=== PATIENT | female | born 1990 | race Caucasian/White ===

== ENCOUNTER 2022-07-07 12:32 | Emergency (ER) | payer BC, SELFPAY ==
[2022-07-07 12:47] VITALS: BP 126/84; PULSE 77; RESP 20; TEMP 37.3; O2SAT 100; BMI 23.1
--- NOTE | 2022-07-07 13:06 | ED_ITS ---
HPI - URI/Sore Throat General Time Seen by Provider: 13:07 Date Seen: 07/07/22 Chief Complaint: Cough Stated Complaint: positive for covid,cough,short of breath,congestio Time Seen by Provider: 07/07/22 12:41 Source: patient, RN notes reviewed and old records reviewed Mode of arrival: ambulatory Limitations: no limitations History of Present Illness HPI Narrative: Patient is a very pleasant 32-year-old female with a history of tobacco use, asthma, rheumatoid arthritis but not currently on any immunosuppressants who comes to the emergency room stating that she needs something for COVID. Patient noted the onset of coughing on TuesdayJuly 04. She has had occasional phlegm but mostly nonproductive. She tested positive for COVID yesterday. This is associated with a headache and body aches and decreased appetite. She has no sore throat, vomiting and has been able to take fluids without difficulty. She notes that she does not really have an appetite for solids. She denies abdominal pain but does note some diarrhea but states that she always has this and has not worsened. No dysuria hematuria or lower extremity edema. She has not had chest pain or been short of breath. Patient notes that her primary clinic is in [place] and she lives near [facility] in [place] and thus did not want to drive that far to her clinic and came to the emergency room. Related Data Allergies Allergy/AdvReac Type Severity Reaction Status Date / Time latex Allergy Verified 07/07/22 12:46 depoprovera Allergy Uncoded 07/07/22 12:47 Review of Systems Status of ROS: Reports: 6 or more systems reviewed and unremarkable except as noted in History and below Const: Reports: fatigue; Denies: fever or chills Eyes: Denies: change in vision ENMT: Denies: throat pain, neck pain, throat swelling, difficulty swallowing or hoarseness Cardio: Reports: lightheadedness; Denies: chest pain, swelling of feet/ankles or shortness of breath with exertion Resp: Reports: cough; Denies: shortness of breath or wheezing GI: Denies: difficulty swallowing : Denies: painful urination Musculo: Reports: other (Body aches); Denies: back pain or neck pain Integ/Breast: Denies: rash Neuro: Reports: headache; Denies: weakness in extremities Endo: Reports: fatigue Allergy/Immuno: Denies: throat swelling or wheezing PFSH PFS Social History Smoking Status: Current some day smoker What tobacco products do you use: cigarettes Years smoked: 10 Second hand tobacco smoke exposure: Yes How often do you have a drink containing alcohol: monthly or less How often do you have six or more drinks on one occasion: Never AUDIT-C Alcohol total score: 1 Non-prescribed substance use: denies use service: No Exam Narrative: Exam Narrative: Patient is alert and oriented. No acute distress. Only heard her cough once when I asked her to cough hard to see if it had any affect on O2 sats or pulse. Oral cavity with moist mucous membranes. Neck is supple. Heart with regular rate and rhythm. Lungs are clear in all lung gold. Abdomen soft nontender. Lower extremities without edema. Const: Vital Signs, click to edit/add: Vital Signs - 24 hr 07/07/22 12:47 Temperature 99.1 F Pulse Rate [Pulse Oximeter] 77 Respiratory Rate 20 Blood Pressure [Ri ght Upper Arm] 126/84 Pulse Oximetry 100 Oxygen Delivery Me thod Room Air Course Course Hospital Course: At this time patient is nontoxic in appearance with no evidence of tachycardia or hypoxia. She certainly would be a candidate for Paxlovid if she has a normal creatinine. I do not feel patient needs further workup Vital Signs Vital signs: Initial Vital Signs Temperature 99.1 F 07/07/22 12:47 Temperature Source Temporal Artery Scan 07/07/22 12:47 Pulse Rate 77 07/07/22 12:47 Pulse Rhythm 07/07/22 12:47 Respiratory Rate 20 07/07/22 12:47 Blood Pressure 126/84 07/07/22 12:47 Blood Pressure Mean 98 07/07/22 12:47 Blood Pressure Position Supine 07/07/22 12:47 Pulse Oximetry 100 07/07/22 12:47 Oxygen Delivery Method 07/07/22 12:47 Vital Signs Temperature 99.1 F 07/07/22 12:47 Pulse Rate 77 07/07/22 12:47 Respiratory Rate 20 07/07/22 12:47 Blood Pressure 126/84 07/07/22 12:47 Pulse Oximetry 100 07/07/22 12:47 Oxygen Delivery Method 07/07/22 12:47 Temperature 99.1 F 07/07/22 12:47 Pulse Rate 77 07/07/22 12:47 Respiratory Rate 20 07/07/22 12:47 Blood Pressure 126/84 07/07/22 12:47 Pulse Oximetry 100 07/07/22 12:47 Oxygen Delivery Method 07/07/22 12:47 MDM - URI/Sore Throat MDM Narrative Medical decision making narrative: 1. COVID-patient had requested medication for COVID and I did suggest the use of Paxlovid. She is stable at this time with reassuring oxygen levels as well as normal pulse. She has no signs of toxicity. Would however require creatinine for dispensing. It appears that lab missed x2 and patient told nursing that she wanted to go because she needed to smoke and get out of the ER. This is unfortunate as I do think we could have come up with alternative plan such as a fingerstick. Patient would have been eligible as this is day 4 of symptoms. 2. Disposition-patient departs AMA prior to my being able to talk to her. Medical Records Attestation: I reviewed the patient's medical records. Lab Data Attestation: I reviewed the patient's lab results. Discharge Plan Discharge Clinical Impression: COVID-19 Patient Disposition: Left Against Medical Advice Condition: Unchanged Additional Instructions: Patient left prior to labs being available. Stand Alone Forms: meets Instructions
--- NOTE | 2022-07-07 14:35 | ED.NURSE ---
lab techs x 2 have tried for blood drawn - unsuccessful. would like to go home
--- OUTSIDE RECORDS SUMMARY | 2022-07-08 11:01 | XMS_ITS | Encounter Summary ---
:1990 Author Organization [facility] Address [address] [place] [address] Care Team Providers Name Role Phone Unavailable Primary Care Provider Unavailable Encounter Details Date Type Department Care Team Description 01/13/2021 Orders Only [facility] Sa lisbeth Martinez M.D. [address] [place], [place] [phone] (Wo rk) Social History Tobacco Use Types Packs/Day Years Used Date Smoking Tobacco: Unknown Alcohol Use Standard Drinks/Week Comments No 0 (1 standard drink = 0.6 oz pure alcoho l) Sex Assigned at Date Recorded Not on file documented as of this encounter Plan of Treatment Not on filedocumented as of this encounter Visit Diagnoses Not on filedocumented in this encounter
--- OUTSIDE RECORDS SUMMARY | 2022-07-08 11:01 | XMS_ITS | Encounter Summary ---
:1990 Author Organization [facility] Address [address] [place] [address] Care Team Providers Name Role Phone Unavailable Primary Care Provider Unavailable Reason for Visit Outpatient (Routine) - Closed Specialty Diagnoses / Procedures Referred By Contact Refer red To Contact Diagnoses [facility] ([facility]) Fidel Stallings M.D., M.P.H. [facility] Procedures EEG routine - awake and sleep [facility] [place] [address] Referral ID Status Reason Start Date Expiration Date Visits Requ ested Visits Authorized [id number] Closed 03/18/2022 03/18/2023 1 1 Encounter Details Date Type Department Care Team Description 03/31/2022 Diagnostic Department of Fidel Stallings M.D., [facility] [place], [facility] ([facility]) [address] [address] [place] [address] [phone] Social History Tobacco Use Types Packs/Day Years Used Date Smoking Tobacco: Unknown Alcohol Use Standard Drinks/Week Comments No 0 (1 standard drink = 0.6 oz pure alcoho l) Sex Assigned at Date Recorded Not on file documented as of this encounter Plan of Treatment Not on filedocumented as of this encounter Procedures Procedure Name Priority Date/Time Associated Diagnosis Comme nts EEG ROUTINE - AWAKE Routine 03/31/2022 1:06 PM [facility] Results for this AND SLEEP CDT (HCC) procedure are i n the results section. documented in this encounter Results EEG routine - awake and sleep (03/31/2022 1:06 PM CDT) Specimen (Source) Anatomical Location Collection Method / Collectio n Time Received Time / Laterality Volume Narrative MMODAL - 03/31/2022 4:15 PM CDT Clinical Interpretation: The short-term video EEG shows an excess of fast activity which could be seen as a result of medication effect. ??No potentially epileptogenic activity was p resent during the awake or sleep recordings. Classification: SPECIAL STUDY - Short-te rm video EEG. Dysrhythmia grade 1 generalized (excess beta or medication effect). Sleep - no activation. EKG channel. Report: The short-term video EEG recordi ng during wakefulness contains 9-10 Hz alpha activity over the posterio r head regions. ??An excess of beta activity is present. ??No abnormal activ ity occurred during photic stimulation. During the recording, the patient fell a sleep spontaneously. ??No abnormal activity occurred during sleep or at the time of arousal. The EKG channel was unremarkable. Fidel Stallings M.D., M.P.[facility]. NEUROLOGY ORDERABLES Performing Organization Address City/State/ZIP Code Phon e Number MMODAL MMODAL NA documented in this encounter Visit Diagnoses Diagnosis [facility] ([facility]) documented in this encounter
--- OUTSIDE RECORDS SUMMARY | 2022-07-08 11:01 | XMS_ITS | Encounter Summary ---
:1990 Author Organization [facility] Address [address] [place] [address] Care Team Providers Name Role Phone Unavailable Primary Care Provider Unavailable Reason for Visit Auth/Cert Specialty Diagnoses / Procedures Referred By Contact Refer red To Contact Diagnoses Sedative Hypnotic Or Anxiolytic Use Unspecified With Withdrawal Delirium (HCC) Overdose Procedures Sedative Hypnotic Or Anxiolytic Use Unspecified With Withdrawal Delirium Referral ID Status Reason Start Date Expiration Date Visits Requ ested Visits Authorized [id number] 1 1 Encounter Details Date Type Department Care Team Description 08/31/2018 - Hospital Encounter [facility] Orlando Zhu M. D. [address] [place] [address] Sedative Hypnotic Or [facility] [address] [place] [address] Anxiolytic Use [facility], Unspecified [facility], Withdraw al Delirium Fifth Floor (HCC) (Primary Dx) [address] [place] [id number] Social History Tobacco Use Types Packs/Day Years Used Date Smoking Tobacco: Unknown Alcohol Use Standard Drinks/Week Comments No 0 (1 standard drink = 0.6 oz pure alcoho l) Sex Assigned at Date Recorded Not on file documented as of this encounter Last Filed Vital Signs Vital Sign Reading Time Taken Comments Blood Pressure 130/83 09/02/2018 4:30 PM [facility]ENT Pulse 107 09/02/2018 12:04 PM [facility] PARENT Temperature 36.3 ??C (97.3 ??F) 09/02/2018 4:30 PM [facility] PARENT Respiratory Rate 16 09/02/2018 4:30 PM [facility] PARENT Oxygen Saturation 97% 09/02/2018 4:30 PM [facility] PARENT Inhaled Oxygen Concentration - - Weight 73.1 kg (161 lb 2.5 oz) 09/01/2018 12:45 AM [facility] PARENT Height 172 cm (5' 7.72) 08/31/2018 11:10 PM [facility] PARENT Body Mass Index 24.71 08/31/2018 11:10 PM [facility] PARENT documented in this encounter Discharge Summaries Makeda Christensen P.A.-C., M.S. - 09/02/2018 3:52 PM CST DISCHARGE SUMMARY BRIEF OVERVIEW Discharge Provider: Derik Palma M.D. No primary care provider on file. Discharge Provider Team: [facility] Internal Medicine ([facility]) [facility] Medicine 7 ([facility]) Primary Care Provider Phone Number: None Primary Care Provider Fax Number: None Other Providers: Makeda Christensen PA-C Admission Date: 08/31/2018 Discharge Date: 09/02/18 PRINCIPAL DIAGNOSIS No Principal Problem: There is no principal problem currently on the Problem List. Please update theProblem List and refresh. 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 * DISCHARGE DISPOSITION Home or Self Care [1] ACTIVE ISSUES REQUIRING FOLLOW UP Follow-up Recommendations: - Consider alternative anti-anxiety medication to benzodiazepines. - Clonazepam taper recommendation: 1 mg BID for two weeks (prescribed from hospital) and then decrease dose by 0.25 mg each week (prescribed from PCP). For example, week 3 will be 0.75 mg am and 1 mg pm, week 4 0.75 mg am and 0.75 mg pm, until medication discontinued. - patient prescribed 1 week of potassium supplementation, recommend repeat electrolyte at follow-up visit and possibly ECG is well OUTPATIENT FOLLOW UP No future appointments. TEST RESULTS PENDING AT DISCHARGE Pending Labs Order Current Status Bacteria / Celeste Culture, Blood #1 Preliminary result Bacteria / Celeste Culture, Blood #2 Preliminary result DETAILS OF HOSPITAL STAY REASON FOR ADMISSION No Principal Problem: There is no principal problem currently on the Problem List. Please update theProblem List and refresh. HOSPITAL COURSE Mrs. Mcdonald is a 28 year old woman with history of rheumatoid arthritis, PTSD, depression, and polysubstance abuse who presented to the emergency department at an outside facility after being found nonverbal and lethargic yesterday. In the outside emergency department, she was given naloxone, which resulted in agitation. She was then sedated and intubated due to safety concerns. She was then transferred to [facility] for further management. ?? On arrival, she was intubated and sedated with a propofol drip. Due to history of lorazepam use and possible withdrawal, she was started on a lorazepam drip as well. Head CT was unremarkable. Of note, she had also been started on bupropion last month. Urine drug screen was negative except for benzodiazepines, which she is prescribed and had been given at the outside hospital. Because of this as well as her clonus on initial neuro exam, serotonin syndrome was suspected. Neurology was consulted. They did not believe that this was secondary to serotonin syndrome but was due to benzodiazepine withdrawal. Family confirmed that she takes 28 mg of lorazepam daily as a single dose but had not had it for almost a week. ?? Patient was extubated on morning of 09/01 without difficulty. Patient remained hemodynamically stable was transferred to general medicine service. ?? On laboratory testing, creatine kinase was elevated at 4521. This improved to 4079 the following morning. Her creatinine remained stable and urine output remained adequate. She was hydrated with IV fluids. ?? Psychiatry was consulted. They also believed that this was secondary to benzodiazepine withdrawal. They developed a clonazepam taper and she was discharged on 1 mg clonazepam b.i.d. for 2 weeks with further taper as below. They also recommended avoiding restarting her home bupropion and Adderall due to possible seizure activity from withdrawal, these were restarted on discharge as she had had low CIWA scores persistently for over 24 hr. They did not believe that there was active suicidal ideation and there was no need for psychiatric inpatient admission. ?? Ms. Mcdonald also goes to methadone clinic at [facility] in [place]. Her methadone dose was verified to be 110 mg daily. Methadone was initially held given prolonged QT, however, this improved with correction of hypokalemia. She was then given a 1 time dose of her methadone in the hospital as she would not be able to get to her clinic until Tuesday 09/04. ?? Family and Ms. Mcdonald were open to guardianship and social work assisted in providing the necessary paperwork. MEDICATIONS CHANGED DURING THIS HOSPITAL STAY Medications stopped: Ativan Medications changed: None Medications added: Clonazepam CONSULTS ORDERED DURING THIS ADMISSION IP CONSULT TO NEUROLOGY IP CONSULT TO PSYCHIATRY & PSYCHOLOGY IP CONSULT TO CARE MANAGEMENT CONDITION AT DISCHARGE stable I saw and evaluated Jolynn Mcdonald today and provided counseling [id number] at bedside. I personally spent a total of greater than 30 minutes in counseling and coordination of care as described above to facilitate the hospital discharge. Discharge instructions were provided to the patient and caregiver(s). ER PARENT Mickey Blanco P.A.-C., M.S. - 09/01/2018 8:12 PM CST SUBJECTIVE Transfer acceptance note: Patient seen and examined on evening of transfer. Patient resting comfortably in bed. Patient easilyarousable but falls quickly sleep quickly. Patient states that she is tired but denies any other symptoms. Patient denies chest pain, shortness of breath, abdominal pain, nausea, vomiting, headache, fevers and chills. I have reviewed the current medication list. OBJECTIVE VITAL SIGNS Temperature: [37.2 ??C-38 ??C] 38 ??C Heart Rate: [50-117] 99 Resp Rate: [8-19] 17 Blood Pressure: (87-133)/(57-88) 117/69 FiO2 (%): [30 %-40 %] 30 % SpO2: [92 %-100 %] 99 % Flow Rate (L/min): [2 L/min] 2 L/min Pulse Rate: [48-117] 99 Intake/Output Last 24 Hours: Intake/Output Summary (Last 24 hours) at 09/01/182011 Last data filed at 09/01/18 1700 Gross per 24 hour Intake 3745.66 ml Output 2607 ml Net 1138.66 ml PHYSICAL EXAM General: No acute distress. Mental: Lethargic but easily arousable and oriented. Responds appropriately to questions. ENT: Oral mucosa pink and moist. Heart: Regular rate, regular rhythm, no murmur, clicks or rubs Lungs: Clear to auscultation billaterally; no wheezes, rhonchi or rales. Respirations even and non-labored on room air. Abdomen: Soft, nontender, nondistended. Active bowel sounds x 4 quadrants. Extremities: No pedal edema noted. Skin: Warm and dry, well perfused. No new rashes or lesions noted. DIAGNOSTICS I have personally reviewed laboratory studies, imaging and electronic medical record ASSESSMENT / PLAN Ms. Mcdonald is hospitalized on [address] [address] (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 There seems to be social dynamic between mother and patient. Patient was not interested in discussing this further on assessment - Continue to monitor urine output and kidney function. Will be important to encourage oral intake. - Avoid serotonergic medications as possible. - patient had prolonged QTC of a 496 milliseconds. EKG ordered for tomorrow morning. - If QTC improved consider re-initiation of methadone. Her methadone dose has been verified at 150 mg daily. - Evaluated by Neurology and Psychiatry feel this is secondary to benzodiazepine withdrawal. Serotonin syndrome was discussed but due to patient's history of high-dose benzodiazepine it was felt serotonin syndrome was less likely. Diet: Regular Tubes/lines: Peripheral IV VTE prophylaxis: Heparin Code status: Full Code Disposition: Home Stable to discharge criteria (not yet met): Urinary/fecal output, Vital signs, Labs and Functional status Counseling was provided [id number] at bedside regarding the plan of care as stated above. I personally spent over half of a total 35 minutes in counseling and coordination of care as documented above. ER PARENT Casimiro Sorenson M.D. - 09/01/2018 3:09 PM CST SUBJECTIVE REASON FOR TRANSFER No longer requiring ICU care OBJECTIVE PHYSICAL EXAM GENERAL: No acute distress. Lying comfortably in bed NEURO/PSYCH: Somnolent but awakens easily, answers questions appropriately and moves all extremities. CARDIO: Regular rate and rhythm RESPIRATORY: Lungs clear to auscultation bilaterally ABDOMEN: Soft, Nondistended EXTREMITIES: No peripheral edema ASSESSMENT / PLAN SUMMARY OF CARE Include a brief summary of the care, treatment and services provided, as well as the progress towardgoals. Mrs. Mcdonald is a 28 year old woman with history of rheumatoid arthritis, PTSD, depression, and polysubstance abuse who presented to the emergency department at an outside facility after being found nonverbal and lethargic yesterday. In the outside emergency department, she was given naloxone, which resulted in agitation. She was then sedated and intubated due to safety concerns. She was then transferred to [facility] for further management. On arrival, she was intubated and sedated with a propofol drip. Due to history of lorazepam use and possible withdrawal, she was started on a lorazepam drip as well. Head CT was unremarkable. Of note, she had also been started on bupropion last month. Urine drug screen was negative except for benzodiazepines, which she is prescribed and had been given at the outside hospital. Because of this as well as her clonus on initial neuro exam, serotonin syndrome was suspected. Neurology was consulted. They did not believe that this was secondary to serotonin syndrome but was due to benzodiazepine withdrawal. Family confirmed that she takes 28 mg of lorazepam daily as a single dose but had not had it for almost a week. This morning, Ms. Mcdonald was doing well and was successfully extubated without issue. She has remained somnolent but hemodynamically stable. On laboratory testing, creatine kinase was elevated at 4521. This improved to 4079. Her creatinine remained stable and urine output remained adequate. She was hydrated with IV fluids. Psychiatry was consulted. They also believed that this was secondary to benzodiazepine withdrawal. They developed a clonazepam taper, initially at 1 mg three times daily as well as CIWA monitoring without lorazepam. If scoring on CIWA, a 0.5 mg clonazepam three times daily PRN dose was recommended. After 24 hours, if not requiring PRN dosing of the clonazepam, start tapering clonazepam to 1 mg three times daily. They also recommended avoiding restarting her home bupropion and Adderall due to possible seizure activity from withdrawal. They did not believe that there was active suicidal ideation and there was no need for psychiatric inpatient admission. Ms. Mcdonald also goes to methadone clinic at [facility]. Her methadone dose was verified to be 115 mg daily. Family and Ms. Mcdonald were open to guardianship. Ms. Mcdonald had expressed desire to make her mother her guardian. A social work consultation was placed for advanced directive planning. RECOMMENDATIONS: 1. Continue CIWA with clonazepam taper as per psychiatry note. 2. Follow up on guardianship with social work 3. Monitor urine output and kidney function given elevated creatine kinase. 4. Avoid serotonergic medications as possible. Of note, she also has a prolonged QTc of 496 ms. Repeat ECG ordered for tomorrow. Consider initiation of methadone based on QTc at that time. 5. Ms. Mcdonald has a history of rheumatoid arthritis but currently is between PCP providers. She will need continued follow up with this as well as her new medication regimen at discharge. Thank you for your participation in this patient's care. Please page the Anesthesia Critical Care Service pager at [phone] with any questions or concerns. ER PARENT documented in this encounter Medications at Time of Discharge Medication Sig Dispensed Refills Start Date End Date amphetamine-dextroamphe Take 50 mg by mouth 0 tamine (ADDERALL XR) 25 every morning. mg 24 hr capsule benzocaine (BABY Apply 1 application 0 09/19/2016 ORAJEL) 7.5 % oral gel topically 3 (three) times a day as needed for pain. For tooth pain buPROPion XL Take 150 mg by mouth 0 05/24/2018 (WELLBUTRIN XL) 150 mg daily. 24 hr tablet famotidine (PEPCID) 20 Take 20 mg by mouth 2 0 mg tablet (two) times a day. nicotine polacrilex Take 2 mg by mouth as 0 09/19 (NICORETTE) 2 mg gum needed. QUEtiapine (SEROquel) Take 50 mg by mouth. 0 12/18 50 mg tablet valACYclovir (VALTREX) TAKE 1 TABLET BY MOUTH 0 1 10/16/2017 500 mg tablet DAILY FOR SUPPRESSIVE THERAPIES. acetaminophen (TYLENOL) Take 325-650 mg by 0 325 mg tablet mouth every 4 (four) hours as needed for pain or fever. clonazePAM (KlonoPIN) 1 Take 1 tablet (1 mg 28 tablet 0 mg tablet total) by mouth 2 (two) times a day for 14 days. Take 1 mg BID for two weeks. Further prescriptions from PCP. After initial two weeks begin slow taper by decreasing 0.25 mg each week. (week 3 will be 0.75 mg am dose and 1 mg pm dose) etonogestrel-ethinyl 0 estradiol (NUVARING) 0.12-0.015 mg/24 hr vaginal ring methadone (METHADOSE) Take 110 mg by mouth 0 10 mg/mL concentrated daily. solution penicillin V potassium Take 500 mg by mouth 4 0 1 10/28/2017 09/03/2018 (VEETIDS) 500 mg tablet (four) times a day. potassium chloride Take 20 mEq by mouth 7 packet 0 018 09/09/2018 (KLOR-CON) 20 mEq daily with breakfast packet for 7 days. documented as of this encounter Progress Notes Derik Palma M.D. - 09/02/2018 10:30 AM CST Jolynn Mcdonald was seen by the medicine team. I have reviewed the laboratory data, imaging and vital signs and I agree with the assessment and plan as documented today by Makeda Christensen PA-C Plan: Possible discharge home today pending on how she does this morning and early afternoon Mitch Ocampo R.R.T., C.R.T. - 09/01/2018 11:30 AM CST extuabted patient to 2l nasal canula. Will continue to monitor per protocol. Electronically signed by: Mitch Stratton R.R.T., C.R.T. 09/01/18 11:31 AM ER PARENT Casimiro Sorenson M.D. - 09/01/2018 7:27 AM CST SUBJECTIVE Interval Events: Admitted overnight with concerns of benzodiazepine overdose. Continued to be intubated but sedation stopped earlier this morning. OBJECTIVE BP 116/73 Pulse 109 Temp 37.7 ??C (Oral) Resp 15 Ht 172 cm Wt 73.1 kg SpO2 96% BMI 24.71 kg/m?? PHYSICAL GENERAL: No acute distress ENT: Oral mucosa pink and dry. SKIN: No rashes or petechiae NEURO/PSYCH: Intubated, sedated. CARDIO: Regular rate and rhythm RESPIRATORY: Lungs clear to auscultation bilaterally ABDOMEN: Soft, Nondistended EXTREMITIES: No peripheral edema DIAGNOSTICS I have reviewed relevant laboratory, imaging, and other diagnostics as applicable. ASSESSMENT / PLAN #1 Sedative Hypnotic Or Anxiolytic Use Unspecified With Withdrawal Delirium (HCC) Ms. Mcdonald is doing well today. Plan is for extubation once sedation has worn off. Psychiatry willsee later today once extubated and able to participate in interview. We will also attempt to obtain home medications given concern for serotonin syndrome and overdose. SYSTEM-BASED PLAN: NEUROLOGIC: - Neurologic exam stable. - Pain control: - Neuro checks per ICU routine. - UDS positive for benzodiazepines but negative for opiates [ ] psych consult [ ] discontinued lorazepam and propofol drips [ ] CIWA protocol without lorazepam for now CARDIOVASCULAR: - Goal SBP < 160, MAP > 65. - CK 4521 -> 4079 PULMONARY: - Currently intubated on minimal settings [ ] Extubation once awake and following commands RENAL: - Monitor electrolytes. - Goal UOP > 0.5 cc/kg/hr. - Sanabria catheter in place. [ ] fluid boluses today for elevated creatine kinase GI: - Diet: NPO while intubated. Advance as tolerated. - PPI: not indicated. HEME: - H/H stable. - No thrombocytopenia. - No acute issues. - Continue scheduled CBCs. ID: - No active issues ENDOCRINE: - Monitor glucose TID, goal < 150. - Insulin needs: not indicated. MSK: - Bedrest while intubated. Activity as tolerated after. PPX: - DVT: SCDs, heparin TID - GI: PPI is not indicated at this time. ACCESS: PIVs. DISPO: ICU. Likely general care once extubated. CODE: FULL CODE Thank you for your participation in this patient's care. Please page the Anesthesia Critical Care Service pager at [phone] with any questions or concerns. ER PARENT documented in this encounter H&P Notes Sanchez Yeboah M.D. - 09/01/2018 12:49 AM CST CCU ADMISSION NOTE CHIEF COMPLAINT Benzodiazepine withdrawal HISTORY OF PRESENT ILLNESS Ms. Jolynn Mcdonald is a 28 y.o. female with a past medical history significant for benzodiazepine abuse, methadone treatment program, severe anxiety and depression who was transferred to the Anesthesia ICU intubated and sedated due to concern for benzodiazepine withdrawal. Per review of outside records, the patient was brought into an outside hospital emergency departmentby her parents at approximately 7:00 p.m. this evening. The patient was nonverbal all day and lethargic. The patient attempted overdose 3 days ago with 28 mg of Ativan. Since then the patient has been stuporous and described as catatonic. In the outside emergency department the patient was largely hemodynamically stable, however, naloxone was administered and the patient became severely agitated. Ativan was administered and the patient became more alert and talkative. Per the sign out the patient subsequently became more agitated and wa s sedated and intubated for her own safety. She was subsequently transferred to [facility] for further management and cares. On arrival the patient was sedated on a propofol infusion. She was intubated and mechanically ventilated. Patient was otherwise hemodynamically stable. White blood cell count was 14.5. Hemoglobin was 14.2. Head CT was obtained and did not demonstrate any acute pathology. Patient recently started on anSSRI last month. Patient has a femoral central line in place. CURRENT MEDICATIONS Medications Scheduled Medication Dose/Rate, Route, Frequency Last Action chlorhexidine 0.12 % mouthwash 15 mL (PERIDEX) 15 mL, swish & spit, BID Ordered lactated Ringer's bolus 500 mL 500 mL, IV, Once New Ba/13 2338 Continuous Medication Dose/Rate, Route, Frequency Last Action lactated ringers 50 mL/hr, IV, Continuous Rate/Dose Verify: 09/01 0000 LORazepam 1 mg/mL in NaCl 0.9% 40 mL infusion (ATIVAN) 1 mg/hr, IV, Continuous New Ba/14 0019 propofol 10 mg/mL infusion (DIPRIVAN) 75.111 mcg/kg/min, IV, Continuous Rate/Dose Verify: 09/01 0000 ALLERGIES/ADVERSE REACTIONS Allergies as of 08/31/2018 ??? (Not on File) SYSTEMS REVIEW Pertinent items are noted in HPI; all other review of systems was negative. PAST MEDICAL/SURGICAL HISTORY No past medical history on file. SOCIAL HISTORY Social History Social History ??? Marital status: Single Spouse name: N/A ??? Number of children: N/A ??? Years of education: N/A Social History Main Topics ??? Smoking status: Not on file ??? Smokeless tobacco: Not on file ??? Alcohol use Not on file ??? Drug use: Unknown ??? Sexual activity: Not on file Other Topics Concern ??? Not on file Social History Narrative ??? No narrative on file FAMILY HISTORY No family history on file. VITAL SIGNS Vitals: 09/01/18 0030 BP: 96/57 Pulse: 62 Resp: 16 Temp: 37.2 ??C SpO2: 100% PHYSICAL EXAMINATION General: Sedated, intubated CV: Normal rate and rhythm. Normal S1 S2, no murmurs Pulmonary: Mechanically ventilated. CTAB. No wheezing. Abdomen: Soft, nondistended Neuro: Myoclonus in the lower extremities Ext: Well perfused. 2+ dorsalis pedis and posterior tibialis pulse. LABS Recent Labs 09/01/18 0035 HGB 12.6 MYA7CTM 30 L PHART 7.47 H PO2ART 142 H YHB0YLE 22 ASSESSMENT / PLAN Ms. Jolynn Mcdonald is a 28 y.o. female with a past medical history significant for benzodiazepine abuse, methadone treatment program, severe anxiety and depression who was transferred to the Anesthesia ICU intubated and sedated due to concern for benzodiazepine withdrawal NEUROLOGIC: #benzodiazepine withdrawal #concern for serotonin syndrome #anxiety/depression - Myoclonus on examination -Neuro ICU consult placed -director call resident will assist with neurologic examination - Sedated on propofol infusion - Ativan 1 mg/hr infusion running - Urine drug screen (including prescriptions) pending - CK pending CARDIOVASCULAR: - Goal SBP < 160, MAP > 65. - Hemodynamically stable - EKG unremarkable PULMONARY: - Intubated on ventilator - S-CMV settings -RR 12 -TV 390 -PEEP 5 -FiO2 35% RENAL: - Monitor electrolytes. - IVF: LR 50 cc/hr - Goal UOP > 0.5 cc/kg/hr. - Sanabria catheter in place. GI: - Diet: NPO - PPI: Initiate PPI if remains intubated HEME: - H/H stable. - No thrombocytopenia. - No acute issues. - Continue scheduled CBCs. ID: - Patient is afebrile without evidence of active infection on physical exam. - No leukocytosis. ENDOCRINE: - Monitor glucose TID, goal < 150. - Insulin needs: not indicated. MSK: - Sedated, bed rest PPX: - DVT: SCDs, chemical prophylaxis will be determined on AM rounds - GI: PPI is not indicated at this time. ACCESS: PIVs x2. DISPO: ICU. CODE: Full, not discussed. Thank you for your participation in this patient's care. Please page the Anesthesia Critical Care Service pager at [phone] with any questions or concerns. ER PARENT documented in this encounter Consult Notes Rita Resendiz L.G.S.W., M.S.W. - 09/01/2018 4:09 PM CSTAssociated Order(s): IP CONSULT TO CARE MANAGEMENT Discharge Planning Assessment SUBJECTIVE lasting floorworker received referral to meet with patient for Advance Directives. lasting floorworker visited with patient, patient's mother and patient's grandmother in ICU hospital room. [facility] Directive information, and signed hospital authorizations for patient's mother and father. Patient and family denied additional questions at this time. Please see the Psychiatry consult by Lindsey Decker, completed on 09/01/2018 for additional information regarding this patient. Referral Data Referral Source: Provider/Service Referral Reason: Advanced Directives Who was present during the interview?: Patient, Family Doctor Of Nurse Anesthesia Practice Services Used: No Patient Information Primary Caregiver: Self Legal Information Legal Decision Maker: Self Caregiver Information Patient is supported by her parents.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 per the outside hospital documentation, it appears the patient is on bupropion, Adderall, methadone and Seroquel. The outside facility had a working diagnosis of a benzodiazepine withdrawal versus serotonin syndrome given the myoclonic jerking. The patient was treated with Ativan and received up to 14 mg via IV with, per report, significant improvement in mentation; however, this was short lived. Out of abundanceof caution for transport purposes and agitation, the patient has was intubated in order to facilitate transfer for her here at [facility]. On arrival here to [facility], the patient has an endotracheal tube in place. She does have clonus of the lower extremities bilateral without extinction. Her pupils are reactive. She has a right femoral central line and a left tibial intraosseous line. ASSESSMENT / PLAN #1 Altered mental status, workup ongoing #2 Serotonin syndrome vs benzodiazepine withdrawal #3 Substance abuse history with benzodiazepine abuse #4 On methadone treatments #5 Severe anxiety disorder #6 Major depressive disorder PLAN: The patient certainly has a history of overdose attempts and has been on benzodiazepines on and off as per the documentation from the outside facility. There may absolutely be a component of benzodiazepine withdrawal given that she has improvement in mentation when benzodiazepines are introduced to her system, but her clonus is certainly concerning for serotonin syndrome. It is unclear why this may be the case, although an overdose of one of her psychiatric medications may help to explain this. For now, we will ask for the Neurologic Consultative Services to help us document a physical examination with a close attention to detail to the neurologic system. We will treat her as a presumed serotonin s yndrome and avoid medications that may augment serotonin release, including many of the SSRIs. We will obtain a laboratory panel, including a drug tox screen, and we will explore the potential for checking drug levels. We will reassess her agitation with respect to need for mechanical ventilation. HerCT head was performed at the outside facility, which does not demonstrate concerning intracranial lesions. I see no need to repeat this at this time. We will need to remain vigilant as we care for thispatient. BILLING: KK60, greater than 50% of the time spent in counseling and coordination of care, extensive time spent at the patient's bedside managing multiple aspects of the patient's care including ventilator support. This time does not include procedural time, which has been billed separately. CT CT Job ID: [id number] ER PARENT documented in this encounter Nursing Notes Sima Omer R.N. - 09/02/2018 5:29 PM CST Goals: Clinical Goals for the Shift: Monitor CIWA Identify possible barriers to meeting goals/advancing plan of care: None. Stability of the patient: Moderately Stable - Low risk of patient condition declining or worsening End of Shift Summary: Pt remained vitally stable for shift and maintained low CIWA scores (3-4). Pt was given scheduled clonazepam for anxiety. Prior to discharge, pt was given 110 mg methadone oral tabs. Nurse reviewed AVS and continuing plan of care. Pt was understanding continuing plan of care, emani marina of benzodiazapine taper. Pt left unit with escort at approximately 1730. Electronically signed by: Sima Omer R.N. 09/02/18 6:26 PM ER PARENT Marija Luna R.N. - 09/01/2018 10:17 PM CST Compromised Skin Integrity ??? Skin/Tissue integrity maintained or improved Progressing ??? Incisions, wounds, or drain sites healing without S/S of infection Progressing ??? Oral and Nasal mucous membranes remain intact Progressing DISCHARGE PLANNING ??? Patient discharge needs identified Progressing Incontinence and/or Moisture ??? Skin integrity is maintained or improved Progressing INFECTION - ADULT ??? Absence of infection during hospitalization Progressing KNOWLEDGE DEFICIT ??? Patient/family/caregiver demonstrates understanding of disease process, treatment plan, medications, and discharge instructions Progressing PAIN - ADULT ??? PT VERBALIZES/DEMONSTRATES ADEQUATE COMFORT LEVEL OR BASELINE Progressing POTENTIAL OR ACTUAL PRESSURE INJURY-ADULT ??? Manage sensory Perception deficits to maintain and/or improve skin integrity Progressing ??? Maintain optimal skin moisture to ensure or improve skin integrity Progressing ??? Achieve optimal activity and/or mobility to maintain or improve skin integrity Progressing ??? Nutrient intake appropriate for improving, restoring or maintaining skin integrity Progressing ??? Minimize friction and/or shear to maintain or improve skin integrity Progressing SAFETY ADULT ??? Maintain a safe environment Progressing SAFETY ADULT - RISK FOR FALL AND OR FALL INJURY ??? Patient remains free from fall/fall injury Progressing SKIN/TISSUE INTEGRITY ??? Skin/Tissue integrity maintained or improved Progressing ??? Oral and Nasal mucous membranes remain intact Progressing Goals: Clinical Goals for the Shift: Monitor CIWA Identify possible barriers to meeting goals/advancing plan of care: None Stability of the patient: Moderately Stable - Low risk of patient condition declining or worsening End of Shift Summary: Patient flushed, diaphoretic, clammy, with febrile temp of 38 celsius. Sx notified and acetaminophen given. Temp recheck afebrile, patient still flushed, diaphoretic, and clammy. Patient states she is in no discomfort. Patient easy to fall asleep, but wakes easily to voice. Patient CIWA q4hrs per protocol. Patient urinary catheter removed 1700, patient yet to void. Patient states that she would like her mother to be her guardian. Video monitor put in place for safety d/t lethargy, withdrawals, and jerking witnessed by ED staff. Will continue to monitor. ER PARENT Adele Molina, R.R.T., L.R.T. - 09/01/2018 4:46 AM CST Alert Information: Plan of Care: Continue to monitor patient's respiratory status while in ICU. Maintain and monitor mechanical ventilation and artificial airway. ABG noted and RR decreased from 16 to 12. Principal Problem Serotonin syndrome vs. Benzodiazepine w/d ETT (Active) Placement Date/Time: 08/31/181929 Placed by External Staff?: Other hospital ETT Type: Standard ETT Tube Size: 7.5 mm Cuffed: Yes Location: Oral ETT-Secured at (cm): 23 cm Ventilator Info: Ventilator Mode: (S)CMV FiO2 (%): 30 % PEEP (cmH2O): 5 cm H20 Plateau (Pause) Airway Pressure: 8.7 cm H2O Compliance (mL/cm H2O): 134 mL/cm H2O RR: 12 Tidal volume: 390 mL Recent Labs 09/01/18 0035 PO2 ART 142 H PCO2 ART 30 L PH ART 7.47 H Electronically signed by: Adele Molina R.R.T., L.R.T. 09/01/18 4:48 AM ER PARENT documented in this encounter Miscellaneous Notes Hospital Course - Makeda Christensen P.A.-C. MAnthonyS. - 09/01/2018 8:23 PM CST Mrs. Mcdonald is a 28 year old woman with history of rheumatoid arthritis, PTSD, depression, and polysubstance abuse who presented to the emergency department at an outside facility after being found nonverbal and lethargic yesterday. In the outside emergency department, she was given naloxone, which resulted in agitation. She was then sedated and intubated due to safety concerns. She was then transferred to [facility] for further management. ?? On arrival, she was intubated and sedated with a propofol drip. Due to history of lorazepam use and possible withdrawal, she was started on a lorazepam drip as well. Head CT was unremarkable. Of note, she had also been started on bupropion last month. Urine drug screen was negative except for benzodiazepines, which she is prescribed and had been given at the outside hospital. Because of this as well as her clonus on initial neuro exam, serotonin syndrome was suspected. Neurology was consulted. They did not believe that this was secondary to serotonin syndrome but was due to benzodiazepine withdrawal. Family confirmed that she takes 28 mg of lorazepam daily as a single dose but had not had it for almost a week. ?? Patient was extubated on morning of 09/01 without difficulty. Patient remained hemodynamically stable was transferred to general medicine service. ?? On laboratory testing, creatine kinase was elevated at 4521. This improved to 4079 the following morning. Her creatinine remained stable and urine output remained adequate. She was hydrated with IV fluids. ?? Psychiatry was consulted. They also believed that this was secondary to benzodiazepine withdrawal. They developed a clonazepam taper and she was discharged on 1 mg clonazepam b.i.d. for 2 weeks with further taper as below. They also recommended avoiding restarting her home bupropion and Adderall due to possible seizure activity from withdrawal, these were restarted on discharge as she had had low CIWA scores persistently for over 24 hr. They did not believe that there was active suicidal ideation and there was no need for psychiatric inpatient admission. ?? Ms. Mcdonald also goes to methadone clinic at [facility] in [place]. Her methadone dose was verified to be 110 mg daily. Methadone was initially held given prolonged QT, however, this improved with correction of hypokalemia. She was then given a 1 time dose of her methadone in the hospital as she would not be able to get to her clinic until Tuesday 09/04. ?? Family and Ms. Mcdonald were open to guardianship and social work assisted in providing the necessary paperwork. ER PARENT documented in this encounter Plan of Treatment Not on filedocumented as of this encounter Procedures Procedure Name Priority Date/Time Associated Comments Diagnosis ECG Routine 09/02/2018 12:43 Results for this PM [facility] procedure are i n the results section. ECG Routine 09/02/2018 6:03 Results for this AM [facility] procedure are i n the results section. CBC WITHOUT Routine 09/02/2018 5:02 Results for this DIFFERENTIAL, B AM [facility] procedure ar e in the results section. CREATINE KINASE Routine 09/02/2018 5:02 Results f or this (CK), S AM [facility] procedure are i n the results section. BASIC METABOLIC Routine 09/02/2018 5:02 Results f or this PANEL, S/P AM [facility] procedure are i n the results section. EXTUBATION Routine 09/01/2018 11:[address] THORACIC SPINE RAD - Emergent 09/01/2018 4:24 Resul ts for this WITH IV CONTRAST (Fastest; for the AM [facility] proced ure are in most critically the results ill patients) section. CT CERVICAL SPINE RAD - Emergent 09/01/2018 4:24 Resul ts for this WITH IV CONTRAST (Fastest; for the AM [facility] proced ure are in most critically the results ill patients) section. CBC WITHOUT Routine 09/01/2018 3:33 Results for this DIFFERENTIAL, B AM [facility] procedure ar e in the results section. HUMAN CHORIONIC STAT 09/01/2018 3:33 Results f or this GONADOTROPIN (HCG), AM [facility] procedur e are in LOVELY, the results section. CREATINE KINASE Routine 09/01/2018 3:33 Results f or this (CK), S AM [facility] procedure are i n the results section. BASIC METABOLIC Routine 09/01/2018 3:33 Results f or this PANEL, S/P AM [facility] procedure are i n the results section. MAGNESIUM, S Routine 09/01/2018 3:29 Results for this AM [facility] procedure are i n the results section. DX ABDOMEN PORTABLE RAD - Routine 09/01/2018 2:47 Resu lts for this ANTERIOR POSTERIOR (most inpatients AM [facility] proce dure are in 1 VIEW and all the results outpatients) section. DRUG ABUSE SURVEY, Routine 09/01/2018 12:54 Resul ts for this U AM [facility] procedure are i n the results section. BACTERIA / CELESTE Routine 09/01/2018 12:50 Resul ts for this CULTURE, BLOOD AM [facility] procedure are in the results section. BACTERIA / CELESTE Routine 09/01/2018 12:49 Resul ts for this CULTURE, BLOOD AM [facility] procedure are in the results section. HEPATIC FUNCTION STAT 09/01/2018 12:44 Results for this PANEL, S AM [facility] procedure are i n the results section. THYROID FUNCTION STAT 09/01/2018 12:44 Results for this CASCADE, S AM [facility] procedure are i n the results section. DRUG SCRN, Routine 09/01/2018 12:44 Results for this PRESCRIPTION/OTC, S AM [facility] procedur e are in the results section. CBC WITHOUT STAT 09/01/2018 12:44 Results for this DIFFERENTIAL, B AM [facility] procedure ar e in the results section. MAGNESIUM, S STAT 09/01/2018 12:44 Results for this AM [facility] procedure are i n the results section. LACTATE, B/P STAT 09/01/2018 12:44 Results for this AM [facility] procedure are i n the results section. CREATINE KINASE STAT 09/01/2018 12:44 Results for this (CK), S AM [facility] procedure are i n the results section. BASIC METABOLIC STAT 09/01/2018 12:44 Results for this PANEL, S/P AM [facility] procedure are i n the results section. PATIENT STATUS STAT 09/01/2018 12:35 Results f or this AM [facility] procedure are i n the results section. ABG W/COOX STAT 09/01/2018 12:35 Results for this AM [facility] procedure are i n the results section. CALCIUM, IONIZED, STAT 09/01/2018 12:35 Result s for this S/B AM [facility] procedure are i n the results section. ECG STAT 08/31/2018 11:39 Results for this PM [facility] procedure are i n the results section. AIRWAY CARE Routine 08/31/2018 11:32 PM [facility] RESPIRATORY ASSESS Routine 08/31/2018 11:31 AND TREAT PM [facility] PULSE OXIMETRY, Routine 08/31/2018 11:31 CONTINUOUS PM [facility] documented in this encounter Results ECG 12 Lead (09/02/2018 12:43 PM [facility]) P athologist Signature Ventricular Rate 97 BPM MUSE ECG/Min CT Interval 162 ms MUSE QRSD Interval 92 ms MUSE QT Interval 356 ms MUSE QTC Interval 452 ms MUSE P [place] 51 degrees MUSE R [place] 54 degrees MUSE T Wave [place] 138 degrees MUSE Specimen Anatomical Collection Method Collection Time Receive d Time (Source) Location / / Volume Laterality 09/02/2018 12:43 09/02/2018 1:22 PM [facility] PM [facility] Impressions MUSE - 09/02/2018 1:23 PM [facility] Normal sinus rhythm Left atrial enlargement Nonspecific T wave abnormality When compared with ECG of 02-SEP-2018 06 :03, QT has shortened Narrative This result has an attachment that is no t available. Procedure Note Mitch Good M.D. - 09/02/2018Formatti ng of this note might be different from the original. IMPRESSION: Normal sinus rhythm Left atrial enlargement Nonspecific T wave abnormality When compared with ECG of 02-SEP-2018 06 :03, QT has shortened Makeda Christensen P.A.-C. ECG ORDERABLES Performing Organization Address City/State/ZIP Code Phon e Number MUSE MUSE NA ECG 12 Lead (09/02/2018 6:03 AM [facility]) P athologist Signature Ventricular Rate 86 BPM MUSE ECG/Min CT Interval 164 ms MUSE QRSD Interval 88 ms MUSE QT Interval 504 ms MUSE QTC Interval 603 ms MUSE P [place] 40 degrees MUSE R [place] 52 degrees MUSE T Wave [place] 134 degrees MUSE Specimen Anatomical Collection Method Collection Time Receive d Time (Source) Location / / Volume Laterality 09/02/2018 6:03 AM 8 7:27 [facility] AM [facility] Impressions MUSE - 09/02/2018 7:27 AM [facility] Normal sinus rhythm Nonspecific ST and T wave abnormality Prolonged QT When compared with ECG of 31-AUG-2018 23 :39, QRS axis has changed ST and T waves have changed Narrative This result has an attachment that is no t available. Procedure Note Mitch Good M.D. - 09/02/2018Formatti ng of this note might be different from the original. IMPRESSION: Normal sinus rhythm Nonspecific ST and T wave abnormality Prolonged QT When compared with ECG of 31-AUG-2018 23 :39, QRS axis has changed ST and T waves have changed Casimiro Sorenson M.D. ECG ORDERABLES Performing Organization Address City/State/ZIP Code Phon e Number MUSE WHITNEY NA (ABNORMAL) CK (Creatine Kinase) (09/02/2018 5:02 AM [facility]) [facility] [place]am Method Time Signature Creatine 1528 (H) 26 - 192 09/02/2018 [facility] Kinase (CK), S U/L 5:58 AM [facility] Specimen Anatomical Collection Method Collection Time Receive d Time (Source) Location / / Volume Laterality Blood (Blood, 09/02/2018 5:02 AM 09/02/20 18 5:18 Venous) [facility] AM [facility] Mickey Blanco P.A.-C., M.S. LAB BLOOD ADD-ON Performing Organization Address City/State/ZIP Code Phon e Number [facility] - [address] [address] [facility] (ABNORMAL) BMP (Basic Metabolic Panel) (09/02/2018 5:02 AM [facility]) [facility] [place] Method Time Signature Potassium, S 3.2 (L) 3.6 - 5.2 09/02/2018 [facility] mmol/L 5:58 AM [facility] Sodium, S 139 135 - 145 09/02/2018 [facility] mmol/L 5:58 AM [facility] Chloride, S 99 98 - 107 09/02/2018 [facility] mmol/L 5:58 AM [facility] Bicarbonate, S 28 22 - 29 09/02/2018 [facility] mmol/L 5:58 AM [facility] Anion Gap 12 7 - 15 09/02/2018 [facility] 5:58 AM [facility] BUN (Blood Urea 4 (L) 6 - 21 09/02/2018 [facility] Nitrogen), S mg/dL 5:58 AM [facility] Creatinine 0.79 0.59 - 09/02/2018 [facility] 1.04 5:58 AM [facility] - mg/dL [facility] eGFR-Non >90 >=60 09/02/2018 [facility] Black/ mL/min/BS 5:58 AM [facility] - [place] A [facility] Comment: ----ADDITIONAL INFORMATION---- Estimated GFR calculated using the 2009 CKD_EPI creatinine equation. eGFR-Black/ >90 >=60 mL/min/BSA 09/02/2018 5:58 [facility] [place] [facility] Comment: ----ADDITIONAL INFORMATION---- Estimated GFR calculated using the 2009 CKD_EPI creatinine equation. Calcium, Total, S 8.0 (L) 8.6 - 10.0 09/02/2018 5:[address] [facility] mg/dL [facility] S Glucose, S 92 70 - 140 mg/dL 09/02/2018 5:58 AM [facility] S Specimen Anatomical Collection Method Collection Time Receive d Time (Source) Location / / Volume Laterality Blood (Blood, 09/02/2018 5:02 AM 09/02/20 18 5:18 Venous) [facility] AM [facility] Mickey Blanco P.A.-C., M.S. LAB BLOOD ADD-ON Performing Organization Address City/State/ZIP Code Phon e Number [facility] - [address] [address] [facility] (ABNORMAL) CBC without Differential (09/02/2018 5:02 AM [facility]) [facility] gist Method Time Signature Hemoglobin 13.0 11.6 - 09/02/2018 [facility] 15.0 g/dL 5:23 AM [facility] Hematocrit 37.8 35.5 - 09/02/2018 [facility] 44.9 % 5:23 AM [facility] Erythrocytes 4.10 3.92 - 09/02/2018 [facility] 5.13 5:23 AM [facility] - x10(12)/L [facility] MCV 92.2 78.2 - 09/02/2018 [facility] 97.9 fL 5:23 AM [facility] RBC Distrib 12.2 12.2 - 09/02/2018 [facility] Width 16.1 % 5:23 AM [facility] - [facility] Platelet Count 219 157 - 371 09/02/2018 [facility] x10(9)/L 5:23 AM [facility] - [facility] Leukocytes 10.5 (H) 3.4 - 9.6 09/02/2018 [facility] x10(9)/L 5:23 AM [facility] Specimen Anatomical Collection Method Collection Time Receive d Time (Source) Location / / Volume Laterality Blood (Blood, 09/02/2018 5:02 AM 09/02/20 18 5:18 Venous) [facility] AM [facility] Mickey Blanco P.A.-C., M.S. LAB BLOOD ADD-ON Performing Organization Address City/State/ZIP Code Phon e Number [facility] - [address] [place] [address] [facility] CT Thoracic Spine with IV Contrast (09/01/2018 4:24 AM [facility]) Anatomical Region Laterality Modality Thoracic Spine, Neuroradiology RST LOS, Neuroradiology N/A Computed Tomography ARZ LOS, Neuroradiology FLA LOS Specimen (Source) Anatomical Collection Method Collection Time Re ceived Time Location / / Volume Laterality 09/01/2018 4:52 AM [facility] Impressions 09/01/2018 7:23 AM [facility] IMPRESSION: 1. ??No evidence of abscess in the thora cic spine. Strong clinical suspicion of abnormality within the spinal canal, thi s would be better evaluated with MRI. 2. Mild depression of the superior endpl ates of T4-T7 and T12 presumably chronic and related to Schmorl's nodes, but tech nically age-indeterminate. Narrative 09/01/2018 7:23 AM [facility] EXAM: CT THORACIC SPINE WITH IV CONTRAST COMPARISON: None. FINDINGS: No abnormal fluid collection o r enhancement in the thoracic spine to suggest infection or abscess. The spinal canal and neural foramen appear widely patent. Mild depression of the superior endplates of T4-T7 and T12 presumably chronic and related to Schmorl's nodes, but technically age-indeterminate. Bibasilar atelectasis. Procedure Note Baltazar Guzman M.D. - 09/01/2018Format ting of this note might be different from the original. EXAM: CT THORACIC SPINE WITH IV CONTRAST COMPARISON: None. FINDINGS: No abnormal fluid collection o r enhancement in the thoracic spine to suggest infection or abscess. The spinal canal and neural foramen appear widely patent. Mild depression of the superior endplates of T4-T7 and T12 presumably chronic and related to Schmorl's nodes, but technically age-indeterminate. Bibasilar atelectasis. IMPRESSION: 1. No evidence of abscess in the thoraci c spine. Strong clinical suspicion of abnormality within the spinal canal, thi s would be better evaluated with MRI. 2. Mild depression of the superior endpl ates of T4-T7 and T12 presumably chronic and related to Schmorl's nodes, but tech nically age-indeterminate. Sanchez Yeboah M.D. IMGuille CT PROCEDURES CT Cervical Spine with IV Contrast (09/01/2018 4:24 AM [facility]) Anatomical Region Laterality Modality Cervical Spine, Neuroradiology RST LOS, Neuroradiology N/A Computed Tomography ARZ [facility], Neuroradiology FLA [facility] Specimen (Source) Anatomical Collection Method Collection Time Re ceived Time Location / / Volume Laterality 09/01/2018 4:43 AM [facility] Impressions 09/01/2018 7:18 AM [facility] IMPRESSION: No abscess in the cervical spine. Narrative 09/01/2018 7:18 AM [facility] EXAM: CT CERVICAL SPINE WITH IV CONTRAST COMPARISON: None. FINDINGS: The spinal canal appears widel y patent with no significant stenosis where seen, but is somewhat obscured at the level of C7 due to streak artifact. No spinal canal or paraspinous abscess. Straightening of the normal cervical lordosis with mild scattered degenerativ e changes most marked at C5-6 where there is degenerative disc space narrowi ng. Endotracheal tube, which mildly limits evaluation of the prevertebral so ft tissues. 7 mm subcutaneous soft tissue nodule in the right upper back (s eries 5, image 77). Procedure Note Baltazar Guzman M.D. - 09/01/2018Format ting of this note might be different from the original. EXAM: CT CERVICAL SPINE WITH IV CONTRAST COMPARISON: None. FINDINGS: The spinal canal appears widel y patent with no significant stenosis where seen, but is somewhat obscured at the level of C7 due to streak artifact. No spinal canal or paraspinous abscess. Straightening of the normal cervical lordosis with mild scattered degenerativ e changes most marked at C5-6 where there is degenerative disc space narrowi ng. Endotracheal tube, which mildly limits evaluation of the prevertebral so ft tissues. 7 mm subcutaneous soft tissue nodule in the right upper back (s eries 5, image 77). IMPRESSION: No abscess in the cervical s pine. Sanchez Yeboah M.D. IMG CT PROCEDURES hCG (Human Chorionic Gonadotropin), Quantitative, (09/01/2018 3:33 AM [facility]) athologist Signature HCG, <0.5 <5 IU/L 09/01/2018 [facility] Quantitative, 3:52 AM [facility] - , [facility] Specimen Anatomical Collection Method Collection Time Receive d Time (Source) Location / / Volume Laterality Blood (Blood, 09/01/2018 3:33 AM 09/01/20 18 3:36 Venous) [facility] Sanchez Yeboah M.D. LAB BLOOD ADD-ON Performing Organization Address City/State/ZIP Code Phon e Number [facility] - [address] [place] [address] [facility] Basic Metabolic Panel (09/01/2018 3:33 AM [facility]) Analysis Performed At Patho logist Time Signature Potassium, S 3.7 3.6 - 5.2 09/01/2018 [facility] mmol/L 5:04 AM [facility] - [facility] Sodium, S 140 135 - 145 09/01/2018 [facility] mmol/L 5:04 AM [facility] - [facility] Chloride, S 102 98 - 107 09/01/2018 [facility] mmol/L 5:04 AM [facility] Bicarbonate, S 24 22 - 29 09/01/2018 [facility] mmol/L 5:04 AM [facility] Anion Gap 14 7 - 15 09/01/2018 [facility] 5:04 AM [facility] BUN (Blood Urea 9 6 - 21 09/01/2018 [facility] Nitrogen), S mg/dL 5:04 AM [facility] Creatinine 0.70 0.59 - 09/01/2018 [facility] 1.04 mg/dL 5:04 [address] [facility] eGFR-Non >90 >=60 09/01/2018 [facility] Black/ mL/min/BSA 5:04 AM [facility] Comment: ----ADDITIONAL INFORMATION---- Estimated GFR calculated using the 2009 CKD_EPI creatinine equation. eGFR-Black/ >90 >=60 mL/min/BSA 09/01/2018 5:04 [facility] [place] [facility] Comment: ----ADDITIONAL INFORMATION---- Estimated GFR calculated using the 2009 CKD_EPI creatinine equation. Calcium, Total, S 9.5 8.6 - 10.0 mg/dL 09/01/2018 5:04 AM [facility] S Glucose, S 81 70 - 140 mg/dL 09/01/2018 5:04 AM [facility] S Specimen Anatomical Collection Method Collection Time Receive d Time (Source) Location / / Volume Laterality Blood (Blood, 09/01/2018 3:33 AM 09/01/20 18 4:20 Venous) [facility] Sanchez Yeboah M.D. LAB BLOOD ADD-ON Performing Organization Address City/State/ZIP Code Phon e Number [facility] - [address] (ABNORMAL) CBC without Differential (09/01/2018 3:33 AM [facility]) [facility] Method Time Signature Hemoglobin 12.9 11.6 - 09/01/2018 [facility] 15.0 g/dL 4:27 AM [facility] Hematocrit 38.6 35.5 - 09/01/2018 [facility] 44.9 % 4:27 AM [facility] Erythrocytes 4.12 3.92 - 09/01/2018 [facility] 5.13 4:27 AM [facility] - x10(12)/L [facility] MCV 93.7 78.2 - 09/01/2018 [facility] 97.9 fL 4:27 AM [facility] RBC Distrib 12.3 12.2 - 09/01/2018 [facility] Width 16.1 % 4:27 AM [facility] Platelet Count 274 157 - 371 09/01/2018 [facility] x10(9)/L 4:27 AM [facility] Leukocytes 14.6 (H) 3.4 - 9.6 09/01/2018 [facility] x10(9)/L 4:27 AM [facility] Specimen Anatomical Collection Method Collection Time Receive d Time (Source) Location / / Volume Laterality Blood (Blood, 09/01/2018 3:33 AM 09/01/20 18 4:20 Venous) [facility] Sanchez Yeboah M.D. LAB BLOOD ADD-ON Performing Organization Address City/State/ZIP Code Phon e Number [facility] - [address] (ABNORMAL) CK (Creatine Kinase) (09/01/2018 3:33 AM [facility]) Patholo gist Method Time Signature Creatine 4079 (H) 26 - 192 09/01/2018 [facility] Kinase (CK), S U/L 5:16 AM [facility] Specimen Anatomical Collection Method Collection Time Receive d Time (Source) Location / / Volume Laterality Blood (Blood, 09/01/2018 3:33 AM 09/01/20 18 4:20 Venous) [facility] AM [facility] Sanchez Yeboah M.D. LAB BLOOD ADD-ON Performing Organization Address City/[facility]/ZIP Code Phon e Number [facility] - [address] Magnesium (09/01/2018 3:29 AM [facility]) P athologist Signature Magnesium, S 1.7 1.7 - 2.3 09/02/2018 [facility] mg/dL 7:43 AM [facility] Specimen Anatomical Collection Method Collection Time Receive d Time (Source) Location / / Volume Laterality Blood (Blood, 09/01/2018 3:29 AM 09/02/20 18 7:24 Venous) [facility] Makeda Christensen P.A.-C. LAB BLOOD ADD-ON Performing Organization Address City/[facility]/ZIP Code Phon e Number [facility] [address] DX Abdomen Portable Anterior Posterior 1 View (09/01/2018 2:47 AM [facility]) Anatomical Region Laterality Modality Abdomen, Abdominal RST LOS, Abdominal ARZ LOS, N/A Digital Radiography Abdominal FLA LOS Specimen (Source) Anatomical Collection Method Collection Time Re ceived Time Location / / Volume Laterality 09/01/2018 4:58 AM [facility] Impressions 09/01/2018 8:54 AM [facility] IMPRESSION: ??Right femoral catheter tip is at the level of L5. Surgical clips RUQ. Nonobstructive bowel gas pattern. I have personally reviewed the images an d agree with this interpretation. Narrative 09/01/2018 8:54 AM [facility] EXAM: ??DX ABDOMEN PORTABLE ANTERIOR POSTERIOR 1 VIEW Procedure Note Aryan Joshi M.D. - 09/01/2018Format ting of this note might be different from the original. EXAM: DX ABDOMEN PORTABLE ANTERIOR POSTE RIOR 1 VIEW IMPRESSION: Right femoral catheter tip i s at the level of L5. Surgical clips RUQ. Nonobstructive bowel gas pattern. I have personally reviewed the images an d agree with this interpretation. Sanchez Yeboah M.D. IMG DIAGNOSTIC IMAGING [facility] Drug Abuse Survey, Urine (09/01/2018 12:54 AM [facility]) [facility] gist Method Time Signature Ethanol, Negative NEGATIVE 09/01/2018 [facility] Screen U 2:01 AM [facility] - [facility] Amphetamines Negative NEGATIVE 09/01/2018 [facility] , U 2:06 AM [facility] Barbiturates Negative NEGATIVE 09/01/2018 [facility] , Screen, U 2:06 AM [facility] Benzodiazepi Presumptive NEGATIVE 09/01/2018 [facility] moraima, Screen, Positive 2:06 AM [facility] - U [facility] Cocaine, Negative NEGATIVE 09/01/2018 [facility] Screen, U 2:06 AM [facility] - [facility] Opiates, Negative NEGATIVE 09/01/2018 [facility] Screen, U 2:06 AM [facility] - [facility] Phencyclidin Negative NEGATIVE 09/01/2018 [facility] e, Screen, U 2:06 AM [facility] Tetrahydroca Negative NEGATIVE 09/01/2018 [facility] nnabinol, U 2:06 AM [facility] Specimen Anatomical Collection Method Collection Time Receive d Time (Source) Location / / Volume Laterality Urine (Urine, 09/01/2018 12:54 09/01/2018 1:27 Clean Catch) AM [facility] AM [facility] Sanchez Yeboah M.D. LAB URINE ORDERABLES Performing Organization Address [facility] Phon e Number [facility] - [address] [place] [address] [facility] Bacteria / Celeste Culture, Blood #2 (09/01/2018 12:50 AM [facility]) [facility] Method Time Signature Bacteria/Cand Received Bactec Peds bottle 09/06/20 18 [facility] yulissa Culture, No growth after 5 days of incubation. 2:02 AM [facility] Blood [facility] Specimen Anatomical Collection Method Collection Time Receive d Time (Source) Location / / Volume Laterality Blood (Blood, 09/01/2018 12:50 09/01/2018 1:14 Short Term CVC) AM [facility] AM [facility] Comment: Specimen Source Site: Blood IV START RIGHT ARM Narrative [facility] - 09/06/2018 2:02 AM [facility] Specimen Information: Specimen ID: [id number] Specimen Source: Blood, Short Term CVC Specimen Comment: Specimen Source Site: Blood IV START RIGHT ARM Specimen Collection Start Date: 018 12:50 AM Specimen Received Date: 09/01/2018 ??1: 14 AM Specimen ID: [id number] Specimen Source: Blood, Short Term CVC Specimen Comment: Specimen Source Site: Blood IV START RIGHT ARM Specimen Collection Start Date: 018 12:51 AM Specimen Received Date: 09/01/2018 ??1: 14 AM Specimen ID: [id number] Specimen Source: Blood, Short Term CVC Specimen Comment: Specimen Source Site: Blood IV START RIGHT ARM Specimen Collection Start Date: 018 12:51 AM Specimen Received Date: 09/01/2018 ??1: 14 AM Sanchez Yeboah M.D. LAB MICROBIOLOGY - GENERAL O RDERABLES Performing Organization Address City/[facility] Code Phon e Number [facility] - [address] [place] [address] [facility] Bacteria / Celeste Culture, Blood #1 (09/01/2018 12:49 AM [facility]) [facility] Method Time Signature Bacteria/Cand No growth 09/06/2018 [facility] yulissa Culture, after 5 2:02 AM [facility] - Blood days of [facility] . Specimen Anatomical Collection Method Collection Time Receive d Time (Source) Location / / Volume Laterality Blood (Blood, 09/01/2018 12:49 09/01/2018 1:14 Short Term CVC) AM [facility] AM [facility] Comment: Specimen Source Site: Blood FEM ORAL RIGHT Narrative [facility] - [facility] - 09/06/2018 2:02 AM [facility] Specimen Information: Specimen ID: [id number] Specimen Source: Blood, Short Term CVC Specimen Comment: Specimen Source Site: Blood ??FEMORAL RIGHT Specimen Collection Start Date: 018 12:49 AM Specimen Received Date: 09/01/2018 ??1: 14 AM Specimen ID: [id number] Specimen Source: Blood, Short Term CVC Specimen Comment: Specimen Source Site: Blood ??FEMORAL RIGHT Specimen Collection Start Date: 018 12:49 AM Specimen Received Date: 09/01/2018 ??1: 14 AM Specimen ID: [id number] Specimen Source: Blood, Short Term CVC Specimen Comment: Specimen Source Site: Blood ??FEMORAL RIGHT Specimen Collection Start Date: 018 12:49 AM Specimen Received Date: 09/01/2018 ??1: 14 AM Sanchez Yeboah M.D. LAB MICROBIOLOGY - GENERAL O RDERABLES Performing Organization Address City/State/ZIP Code Phon e Number [facility] - [address] [place], [place] [address] [facility] Drug Screen, Prescription/OTC (09/01/2018 12:44 AM [facility]) [facility] Method Time Signature Drugs Methadone. 09/01/2018 [facility] detected: The following compounds have been detected by GC-MS library match: EDDP 7:51 AM [facility] (Methadone Metabolite). Propofol. DRIVE No other drugs detected. ??Quantitative testing may be lanie ilable at an SUPPORT additional charge. ??Specimens are retained for 10 business days. CENTER This is a screening assay only and false-positive or false -negative results can occur. If confirmation testing of any drugs found is needed, please call the lab. Specimens are retained in the laborator y for two weeks. This test is not intended for use in compliance monitoring or emplo yment-related testing. Comment: ----ADDITIONAL INFORMATION---- This test was developed and its performa nce characteristics determined by [facility] in a manner consistent with CLIA requirements. This test has not been cleared or approved by the [place] and Drug Administration. Specimen Anatomical Collection Method Collection Time Receive d Time (Source) Location / / Volume Laterality Blood (Blood, 09/01/2018 12:44 09/01/2018 2:29 Venous) AM [facility] AM [facility] Cande Bush M.D. LAB BLOOD ADD-ON Performing Organization Address City/[facility]/ZIP Code Phon e Number [facility] [address] [place] [address] [facility] Thyroid Function Tom[place]kins (09/01/2018 12:44 AM [facility]) P athologist Signature TSH, Sensitive 0.6 0.3 - 4.2 09/01/2018 [facility] mIU/L 1:49 AM [facility] - [facility] Specimen Anatomical Collection Method Collection Time Receive d Time (Source) Location / / Volume Laterality Blood (Blood, 09/01/2018 12:44 09/01/2018 1:04 Venous) AM [facility] AM [facility] Sanchez Yeboah M.D. LAB BLOOD ADD-ON Performing Organization Address City/[facility]/ZIP Code Phon e Number [facility] - [address] [place] [address] [facility] (ABNORMAL) Hepatic Function Panel (09/01/2018 12:44 AM [facility]) Component Value Ref Test Analysis Performed At Patholo gist Range Method Time Signature Bilirubin, Total, S 0.5 <=1.2 09/01/2018 [facility] mg/dL 1:49 AM [facility] Bilirubin, Direct, S <0.2 0.0 - 09/01/2018 [facility] DECLAN 0.3 1:49 AM [facility] - mg/dL [facility] Aspartate 76 (H) 8 - 43 09/01/2018 [facility] Aminotransferase U/L 1:49 AM [facility] S - (AST), S [facility] Alanine 52 (H) 7 - 45 09/01/2018 [facility] Aminotransferase U/L 1:49 AM [facility] S - (ALT), S [facility] Alkaline 100 35 - 104 09/01/2018 [facility] Phosphatase, S U/L 1:49 AM [facility] - [facility] Albumin, S 3.5 3.5 - 09/01/2018 [facility] 5.0 g/dL 1:49 AM [facility] - [facility] Protein, Total, S 5.9 (L) 6.3 - 09/01/2018 [facility] 7.9 g/dL 1:49 AM [facility] - [facility] Specimen Anatomical Collection Method Collection Time Receive d Time (Source) Location / / Volume Laterality Blood (Blood, 09/01/2018 12:44 09/01/2018 1:04 Venous) AM [facility] AM [facility] Sanchez Yeboah M.D. LAB BLOOD ADD-ON Performing Organization Address City/[facility]/ZIP Code Phon e Number [facility] - [address] [place] [address] [facility] (ABNORMAL) CK (Creatine Kinase) (09/01/2018 12:44 AM [facility]) Patholo gist Method Time Signature Creatine 4521 (H) 26 - 192 09/01/2018 [facility] Kinase (CK), S U/L 2:01 AM [facility] Specimen Anatomical Collection Method Collection Time Receive d Time (Source) Location / / Volume Laterality Blood (Blood, 09/01/2018 12:44 09/01/2018 1:04 Venous) AM [facility] AM [facility] Sanchez Yeboah M.D. LAB BLOOD ADD-ON Performing Organization Address City/State/ZIP Code Phon e Number [facility] - [address] [place] [address] [facility] Lactate (09/01/2018 12:44 AM [facility]) P athologist Signature Lactate, P 1.2 0.5 - 2.2 09/01/2018 [facility] mmol/L 1:39 AM [facility] Specimen Anatomical Collection Method Collection Time Receive d Time (Source) Location / / Volume Laterality Blood (Blood, 09/01/2018 12:44 09/01/2018 1:10 Venous) AM [facility] AM [facility] Sanchez Yeboah M.D. LAB BLOOD NON ADD-ON Performing Organization Address City/State/ZIP Code Phon e Number [facility] - [address] [place] [address] [facility] Magnesium (09/01/2018 12:44 AM [facility]) P athologist Signature Magnesium, S 1.7 1.7 - 2.3 09/01/2018 [facility] mg/dL 1:49 AM [facility] Specimen Anatomical Collection Method Collection Time Receive d Time (Source) Location / / Volume Laterality Blood (Blood, 09/01/2018 12:44 09/01/2018 1:04 Venous) AM [facility] AM [facility] Sanchez Yeboah M.D. LAB BLOOD ADD-ON Performing Organization Address City/[facility] Code Phon e Number [facility] - [address] [place] [address] [facility] (ABNORMAL) CBC without Differential (09/01/2018 12:44 AM [facility]) Patholo gist Method Time Signature Hemoglobin 12.3 11.6 - 09/01/2018 [facility] 15.0 g/dL 12:56 AM [facility] Hematocrit 34.8 (L) 35.5 - 09/01/2018 [facility] 44.9 % 12:56 AM [facility] Erythrocytes 3.76 (L) 3.92 - 09/01/2018 [facility] 5.13 12:56 AM [facility] - x10(12)/L [facility] MCV 92.6 78.2 - 09/01/2018 [facility] 97.9 fL 12:56 AM [facility] RBC Distrib 12.4 12.2 - 09/01/2018 [facility] Width 16.1 % 12:56 AM [facility] Platelet Count 255 157 - 371 09/01/2018 [facility] x10(9)/L 12:56 AM [facility] Leukocytes 14.9 (H) 3.4 - 9.6 09/01/2018 [facility] x10(9)/L 12:56 AM [facility] Specimen Anatomical Collection Method Collection Time Receive d Time (Source) Location / / Volume Laterality Blood (Blood, 09/01/2018 12:44 09/01/2018 Venous) AM [facility] 12:54 AM [facility] Sanchez Yeboah M.D. LAB BLOOD ADD-ON Performing Organization Address City/[facility] Phon e Number [facility] - [address] [place] [address] [facility] (ABNORMAL) BMP (Basic Metabolic Panel) (09/01/2018 12:44 AM [facility]) [facility] gist Method Time Signature Potassium, P 3.3 (L) 3.6 - 5.2 09/01/2018 [facility] mmol/L 1:38 AM [facility] Sodium, P 140 135 - 145 09/01/2018 [facility] mmol/L 1:38 AM [facility] Chloride, P 103 98 - 107 09/01/2018 [facility] mmol/L 1:38 AM [facility] Bicarbonate, P 22 22 - 29 09/01/2018 [facility] mmol/L 1:38 AM [facility] Anion Gap, P 15 7 - 15 09/01/2018 [facility] 1:38 AM [facility] BUN (Blood Urea 9 6 - 21 09/01/2018 [facility] Nitrogen), P mg/dL 1:38 AM [facility] Creatinine 0.67 0.59 - 09/01/2018 [facility] 1.04 1:38 AM [facility] - mg/dL [facility] eGFR-Black/Afri >90 >=60 09/01/2018 [facility] can [place]raini mL/min/BS 1:38 AM [facility] - A [facility] Comment: ----ADDITIONAL INFORMATION---- Estimated GFR calculated using the 2009 CKD_EPI creatinine equation. eGFR Non-Black/ >90 >=60 mL/min/BSA 09/01/2018 1:38 [facility] [place] [facility] Comment: ----ADDITIONAL INFORMATION---- Estimated GFR calculated using the 2009 CKD_EPI creatinine equation. Calcium, Total, P 8.2 (L) 8.6 - 10.0 09/01/2018 1:38 AM [facility] mg/dL [facility] S Glucose, P 96 70 - 140 mg/dL 09/01/2018 1:38 AM [facility] Specimen Anatomical Collection Method Collection Time Receive d Time (Source) Location / / Volume Laterality Blood (Blood, 09/01/2018 12:44 09/01/2018 1:10 Venous) AM [facility] AM [facility] Sanchez Yeboah M.D. LAB BLOOD ADD-ON Performing Organization Address City/State/ZIP Code Phon e Number [facility] - [address] [place] [address] [facility] Patient Status (09/01/2018 12:35 AM [facility]) P athologist Signature FIO2 0.40 0.21=AIR 09/01/2018 [facility] 12:44 AM [facility] Comment: REVISED RESULTS Device Vent 09/01/2018 12:44 AM [facility] Comment: REVISED RESULTS Spont. breaths/min 16 09/01/2018 12:[address] [facility] Comment: REVISED RESULTS Specimen Anatomical Collection Method Collection Time Receive d Time (Source) Location / / Volume Laterality Blood 09/01/2018 12:35 09/01/2018 AM [facility] 12:35 AM [facility] Sanchez Yeboah M.D. LAB BLOOD NON ADD-ON Performing Organization Address City/State/ZIP Code Phon e Number [facility] - [address] [place] [address] [facility] (ABNORMAL) Blood Gas with Coox, Arterial (09/01/2018 12:35 AM [facility]) Patholo gist Method Time Signature pO2 142 (H) 83 - 108 09/01/2018 [facility] mm Hg 12:38 AM [facility] pCO2 30 (L) 32 - 45 09/01/2018 [facility] mm Hg 12:38 AM [facility] pH 7.47 (H) 7.35 - 09/01/2018 [facility] 7.45 pH 12:38 AM [facility] Base Excess -1 -2 - 3 09/01/2018 [facility] mmol/L 12:38 AM [facility] HCO3 22 22 - 26 09/01/2018 [facility] mmol/L 12:38 AM [facility] Hemoglobin, B 12.6 11.6 - 09/01/2018 [facility] 15.0 g/dL 12:38 AM [facility] O2Hb 98.0 94.0 - 09/01/2018 [facility] 98.0 % 12:38 AM [facility] COHb 1.2 <3.0 % 09/01/2018 [facility] 12:38 AM [facility] MetHb <1.0 <1.5 % 09/01/2018 [facility] 12:38 AM [facility] CtO2 17.6 (L) 18.0 - 09/01/2018 [facility] 21.0 vol 12:38 AM [facility] - % [facility] Arterial R-Brachia 09/01/2018 [facility] Sample Site l 12:49 AM [facility] Comment: REVISED RESULTS Specimen Anatomical Collection Method Collection Time Receive d Time (Source) Location / / Volume Laterality Blood (Blood, 09/01/2018 12:35 09/01/2018 Arterial) AM [facility] 12:33 AM [facility] Sanchez Yeboah M.D. LAB BLOOD NON ADD-ON Performing Organization Address City/[facility]/ZIP Code Phon e Number [facility] - [address] [address] [facility] (ABNORMAL) Calcium, Ionized (09/01/2018 12:35 AM [facility]) Patholo gist Method Time Signature Calcium, 4.53 (L) 4.65 - 09/01/2018 [facility] Ionized, B 5.30 12:38 AM [facility] - mg/dL [facility] Specimen Anatomical Collection Method Collection Time Receive d Time (Source) Location / / Volume Laterality Blood (Blood, 09/01/2018 12:35 09/01/2018 Venous) AM [facility] 12:35 AM [facility] Sanchez Yeboah M.D. LAB BLOOD NON ADD-ON Performing Organization Address City/State/ZIP Code Phon e Number [facility] - [address] [address] [facility] ECG 12 Lead STAT (08/31/2018 11:39 PM [facility]) P athologist Signature Ventricular Rate 64 BPM MUSE ECG/Min CT Interval 160 ms MUSE QRSD Interval 88 ms MUSE QT Interval 480 ms MUSE QTC Interval 496 ms MUSE P [place] 64 degrees MUSE R [place] 92 degrees MUSE T Wave [place] 88 degrees MUSE Specimen Anatomical Collection Method Collection Time Receive d Time (Source) Location / / Volume Laterality 08/31/2018 11:39 09/01/2018 5:42 PM [facility] AM [facility] Impressions MUSE - 09/01/2018 5:42 AM [facility] Normal sinus rhythm Rightward axis T wave abnormality, consider anterior is chemia Prolonged QT No previous ECGs available Narrative This result has an attachment that is no t available. Procedure Note Casimiro White M.B.B.S. - 018 IMPRESSION: Normal sinus rhythm Rightward axis T wave abnormality, consider anterior is chemia Prolonged QT No previous ECGs available Sanchez Yeboah M.D. 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) documented in this encounter Administered Medications Inactive Administered Medications - up to 3 most recent administrations Medication Order MAR Action Action Date Dose Rate Site acetaminophen tablet 1,000 mg Given 09/02/2018 8:10 AM [facility] 1,000 mg (TYLENOL) 1,000 mg, oral, Every 6 hours PRN, mild pain or score 1-3 of 10, moderate pain or score 4-6 of 10, severe pain or score 7-10 of 10, headaches, fever, Starting on Tue09/01/18 at 2019 Given 09/01/2018 9:02 PM [facility] 1,000 mg calcium chloride 1 g in NaCl 0.9% IVPB New Bag 09/01/2018 3:03 AM [facility] 1 g 240 mL/hr 1 g, intravenous, at 240 mL/hr, Administer over 15 Minutes, Once, On Tue09/01/18 at 0215, For 1 dose, Central Line only - contact provider if patient does not have central access. chlorhexidine 0.12 % mouthwash 15 mL (PE RIDEX) Given 09/01/2018 8:01 AM [facility] 15 mL 15 mL, swish & spit, 2 times daily, First dose on Tue09/01/18 at 0900, Swab oral cavity while on ventilator. Avoid brushing or use of mouthwash for at least 2 hours after application. Discontinue after extubation. clonazePAM tablet 0.5 mg (KlonoPIN) 0.5 mg, oral, 3 times daily PRN, seizure s, withdrawal, Starting on Tue09/01/18 at 1443 clonazePAM tablet 1 mg (KlonoPIN) Given 09/02/2018 3:24 PM [facility] 1 mg 1 mg, oral, 3 times daily, First dose on Tue09/01/18 at 2100 Given 09/02/2018 8:10 AM [facility] 1 mg Given 09/01/2018 9:02 PM [facility] 1 mg folic acid tablet 1 mg Given 09/02/2018 8:09 AM [facility] 1 mg 1 mg, oral, Daily, First dose on Tue09/01/18 at 0900 heparin (porcine) Given 09/02/2018 3:26 PM [facility] 5,000 Units Left Lower Abdomen injection 5,000 Units 5,000 Units, subcutaneous, Every 8 hours scheduled, First dose on Tue09/01/18 at 0900 Given 09/02/2018 6:22 AM [facility] 5,000 Units Right Lower Abdomen Given 09/01/2018 9:01 PM [facility] 5,000 Units Left Upper Arm (Back) iohexol 300 mg iodine/mL solution 1-200 mL Given 09/01/2018 4:16 AM [facility] 140 mL (OMNIPAQUE) 1-200 mL, intravenous, Once in imaging, contrast, Starting on Tue09/01/18 at 0413, For 1 dose, Imaging Protocol Orders, Dose per Radiant Medication Guidelines lactated Ringer's bolus 1,000 New Bag 09/01/2018 12:00 PM [facility] 1,000 mL 1000 mL/hr mL 1,000 mL, intravenous, at 1,000 mL/hr, Administer over 1 Hours, Once, On Tue09/01/18 at 1145, For 1 dose lactated Ringer's bolus 500 mL New Bag 08/31/2018 11:38 PM [facility] 500 mL 250 mL/hr 500 mL, intravenous, at 250 mL/hr, Administer over 2 Hours, Once, On Mone 08/31/18 at 2345, For 1 dose lactated Ringer's bolus 500 mL New Bag 09/01/2018 2:04 AM [facility] 500 mL 1000 mL/hr 500 mL, intravenous, at 1,000 mL/hr, Administer over 30 Minutes, Once, On Tue09/01/18 at 0145, For 1 dose lactated ringers New Bag 09/02/2018 8:36 AM [facility] 100 mL/hr 100 mL/hr 100 mL/hr, intravenous, Continuous, Starting on Mone 08/31/18 at 2345 Rate/Dose Change 09/01/2018 9:08 PM [facility] 100 mL/hr 100 mL/hr Rate/Dose Verify 09/01/2018 5:00 PM [facility] 50 mL/hr 50 mL/hr LORazepam 1 mg/mL in NaCl Rate/Dose Verify 09/01/2018 5:00 AM [facility] 1 mg/hr 1 mL/hr 0.9% 40 mL infusion (ATIVAN) 1-10 mg/hr (1-10 mL/hr), intravenous, Continuous, Starting on Mone 08/31/18 at 2345, Initiate at: 1 mg/hr., Titrate at: Other, Titrate: keep at 1 mg/hr, Goal: Other, Goal: For benzo withdrawal Rate/Dose Verify 09/01/2018 3:00 AM [facility] 1 mg/hr 1 mL/hr Rate/Dose Verify 09/01/2018 2:00 AM [facility] 1 mg/hr 1 mL/hr methadone tablet 10 mg (DOLOPHINE) Given 09/02/2018 4:56 PM [facility] 10 mg 10 mg, oral, Once, On 09/02/18 at 1615, For 1 dose, Total of 110mg Order 2 of 2 methadone tablet 100 mg (DOLOPHINE) Given 09/02/2018 4:55 PM [facility] 100 mg 100 mg, oral, Once, On 09/02/18 at 1615, For 1 dose, Total of 110mg Order 1 of 2 multivitamin/mineral- tablet 1 Given 09/02/2018 8:09 AM [facility] 1 tablet tablet 1 tablet, oral, Daily, First dose on Tue09/01/18 at 0900 naloxone injection 0.2 mg (NARCAN) 0.2 mg, intravenous, As needed, respirat ory depression, Starting on Tue09/01/18 at 1518, For respiratory rate less than 8 b reaths per minute or RASS score of -3, -4, -5. Apply oxygen to keep oxygen saturati ons greater than 90% and notify service. potassium chloride ER tablet 40 mEq Given 09/02/2018 8:09 AM [facility] 40 mEq (KLORCON/K-TAB) 40 mEq, oral, Once, On 09/02/18 at 0715, For 1 dose, For K 3-3.4 mEq/L - give total of 40 mEq Swallow whole. Do NOT crush, chew, or split tablet., Monitor the following for replacement: Potassium potassium chloride IVPB 20 mEq New Bag 09/01/2018 3:21 AM [facility] 20 mEq 25 mL/hr 20 mEq, intravenous, at 25 mL/hr, Administer over 120 Minutes, Every 1 hour, First dose on Tue09/01/18 at 0200, For 2 doses, For K 3.3-3.5 mEq/L - give total of 40 mEq premix bag, Monitor the following for replacement: Potassium New Bag 09/01/2018 2:04 AM [facility] 20 mEq 25 mL/hr propofol (DIPRIVAN) 10 mg/mL injection - ADS Override Pull Starting on Mone 08/31/18 at 2300, For 1 dose, Created by cabinet override propofol 10 mg/mL Rate/Dose Verify 09/01/2018 5:00 75.111 33.8 mL /hr infusion (DIPRIVAN) AM [facility] mcg/kg/min 5-80 mcg/kg/min ? 75 kg Order-specific weight (2.25-36 mL/hr), intravenous, Continuous, Starting on Mone 08/31/18 at 2345, Type: Titrate, Initiate at: 5 mcg/kg/min., Titrate at: 5 mcg/kg/min. every 5 min., Goal: RASS -1 Rate/Dose Verify 09/01/2018 2:00 AM [facility] 75.111 mcg/kg/min 33.8 mL/h r New Bag 09/01/2018 1:31 AM [facility] 75 mcg/kg/min 33.8 mL/hr sodium chloride 0.9 % flush 50 mL Given 09/01/2018 4:17 AM [facility] 50 mL 50 mL, intravenous, Once, On Tue09/01/18 at 0430, For 1 dose sodium chloride 0.9 % injection 2.5 mL Given 09/01/2018 4:15 AM [facility] 2.5 mL 2.5 mL, intravenous, Once, On Tue09/01/18 at 0430, For 1 dose thiamine 100 mg, Rate/Dose Verify 09/01/2018 7:00 AM 100 mL/hr 100 m L/hr multivitamin (Adult MVI) [facility] 10 mL, folic acid 1 mg in D5W and NaCl 0.45 % infusion 100 mL/hr, intravenous, Once, On Tue09/01/18 at 0600, For 1 dose New Bag 09/01/2018 6:42 AM [facility] 100 mL/hr 100 mL/hr thiamine tablet 100 mg (VITAMIN B1) Given 09/02/2018 8:09 AM [facility] 100 mg 100 mg, oral, Daily, First dose on Tue09/01/18 at 0900, For 5 days documented in this encounter Active and Recently Administered Medications Times are shown in [facility]. Scheduled Medication Order 08/31/2018 09/01/2018 09/02/2018 calcium chloride 1 g in NaCl 0.9% IVPB (COMPLETED) 0303 (New Bag - Provider: Sanchez Ordoñez R.N.) 1 g, intravenous, at 240 mL/hr, Administ er over 15 Minutes, Once, On Tue09/01/18 at 0215, For 1 dose, Central Line only - contact provider if patient does not have central access. chlorhexidine 0.12 % mouthwash 15 mL (PERIDEX) (CANCELED) 0801 (Given - Provider: Murphy Villnaueva R.N.) 15 mL, swish & spit, 2 times daily, Firs t dose on Tue09/01/18 at 0900, Swab oral cavity while on ventilator. Avoid brushing or use of mouthwash for at least 2 hours after application. Discontinue after extubation. clonazePAM tablet 1 mg (KlonoPIN) 2101 ( Given - Provider: Marija Hussein Caro RMarita) 0810 (Given - Provider: Sima dunn RAnthonyNAnthony)1524 (Given - Provider: Sima Omer RAnthonyNAnthony) 1 mg, oral, 3 times daily, First dose on Tue09/01/18 at 2100 folic acid tablet 1 mg 0853 (Not Given - Provider: Murphy Villanueva R.N. - Reason: Other - Comment: no enteral access) 0809 (Given - Provider: Sima Omer RAnthonyNAnthony) 1 mg, oral, Daily, First dose on Tue09/01/18 at 0900 heparin (porcine) injection 5,000 Units 09 (Given - Provider: Murphy Villanueva R.N.)210 (Given - Provider: Marija Hussein Caro, R.N.) 0622 (Given - Provider: Emily Puentes R.N., C.M.S.R.N.)1526 (Given - Provider: Sima Omer R.N. - Comment: Pt was visiting with father) 5,000 Units, subcutaneous, Every 8 hours scheduled, First dose on Tue09/01/18 at 0900 lactated Ringer's bolus 1,000 mL (COMPLETED) 1200 (New Bag - Provider: Murphy Villanueva R.N.) 1,000 mL, intravenous, at 1,000 mL/hr, A dminister over 1 Hours, Once, On Tue09/01/18 at 1145, For 1 dose lactated Ringer's bolus 500 mL (COMPLETED) 2338 (New B ag - Provider: Sanchez Ordoñez R.N.) 500 mL, intravenous, at 250 mL/hr, Admin ister over 2 Hours, Once, On Mone 08/31/18 at 2345, For 1 dose lactated Ringer's bolus 500 mL (COMPLETED) 0204 (New Bag - Provider: Sanchez Ordoñez R.N.) 500 mL, intravenous, at 1,000 mL/hr, Adm inister over 30 Minutes, Once, On Tue09/01/18 at 0145, For 1 dose methadone tablet 10 mg (DOLOPHINE) (COMPLETED) 165 (Given - Provider: Sima Omer RAnthonyNAnthony) 10 mg, oral, Once, On 09/02/18 at 16 15, For 1 dose, Total of 110mg Order 2 of 2 methadone tablet 100 mg (DOLOPHINE) (COMPLETED) 1655 (Given - Provider: Sima Omer RAnthonyNAnthony) 100 mg, oral, Once, On 09/02/18 at 1 615, For 1 dose, Total of 110mg Order 1 of 2 multivitamin/mineral- tablet 1 tablet 0853 (Not Given - Provider: Murphy Villanueva R.N. - Reason: Other - Comment: no enteral access) 0809 (Given - Provider: Sima Omer RAnthonyNAnthony) 1 tablet, oral, Daily, First dose on Tue09/01/18 at 0900 potassium chloride ER tablet 40 mEq (KLORCON/K-TAB) (COMPLETED) 0809 (Given - Provider: Sima Omer RAnthonyNAnthony) 40 mEq, oral, Once, On 09/02/18 at 0 715, For 1 dose, For K 3-3.4 mEq/L - give total of 40 mEq Swallow whole. Do NOT crush, chew, or split tablet., Monitor the following for replacement: Potassium potassium chloride IVPB 20 mEq (COMPLETED) 0204 (New Bag - Provider: Sanchez Ordoñez R.N.)0321 (New Bag - Provider: Sanchez Ordoñez R.N.) 20 mEq, intravenous, at 25 mL/hr, Admini ster over 120 Minutes, Every 1 hour, First dose on Tue09/01/18 at 0200, For 2 doses, For K 3.3-3.5 mEq/L - give total of 40 mEq premix bag, Monitor the following for replacement: Potassium sodium chloride 0.9 % flush 50 mL (COMPLETED) 0417 (Given - Provider: Krystyna Salinas R.N.) 50 mL, intravenous, Once, On Tue09/01/18 at 0430, For 1 dose sodium chloride 0.9 % injection 2.5 mL (COMPLETED) 0415 (Given - Provider: Krystyna Salinas R.N.) 2.5 mL, intravenous, Once, On Tue09/01/18 at 0430, For 1 dose thiamine 100 mg, multivitamin (Adult MVI ) 10 mL, folic acid 1 mg in D5W and NaCl 0.45 % infusion (COMPLETED) 0642 (New Bag - Provider: Sanchez Ordoñez R.N.)0700 (Rate/Dose Verify - Provider: Murphy Villanueva R.N.) 100 mL/hr, intravenous, Once, On Tue09/01/18 at 0600, For 1 dos e thiamine tablet 100 mg (VITAMIN B1) 0853 (Not Given - Provider: Murphy Villanueva R.N. - Reason: Other - Comment: no enteral access) 0809 (Given - Provider: Sima Omer RMarita) 100 mg, oral, Daily, First dose on Tue09/01/18 at 0900, For 5 d ays Continuous Medication Order 08/31/2018 09/01/2018 09/02/2018 lactated ringers (CANCELED) 2338 (New Bag - Provider: Sanchez Ordoñez R.N.) 0000 (Rate/Dose Verify - Provider: aSnchez Ordoñez R.N.)0100 (Rate/Dose Verify - Provider: Sanchez Ordoñez R.N.)0200 (Rate/Dose Verify - Provider: Sanchez Ordoñez R.N.)0300 (Rate/Dose Verify - Provider: Sanchez Ordoñez R.N.) 0836 (New Bag - Provider: Sima Omer R.N.) 100 mL/hr, intravenous, Continuous, Starting on Mone 08/31/18 at 2345 0500 (Rate/Dose Verify - Provider: Sanchez Ordoñez R.N.)0600 (Rate/Dose Verify - Provider: Sanchez Ordoñez R.N.)0700 (Rate/Dose Verify - Provider: Sanchez Ordoñez R.N.)0800 (Rate/Dose Verify - Provider: Murphy Villanueva R.N.) 0900 (Rate/Dose Veri fy - Provider: Murphy Villanueva R.N.)1000 (Rate/Dose Verify - Provider: Murphy Villanueva R.N.)1100 (Rate/Dose Verify - Provider: Murphy Villanueva R.N.)1200 (Rate/Dose Verify - Provider: Murphy Villanueva R.N.) 1300 (Rate/Dose Veri fy - Provider: Murphy Villanueva R.N.)1400 (Rate/Dose Verify - Provider: Murphy Villanueva R.N.)1500 (Rate/Dose Verify - Provider: Murphy Villanueva R.N.)1600 (Rate/Dose Verify - Provider: Murphy Villanueva R.N.) 1700 (Rate/Dose Veri fy - Provider: Murphy Villanueva R.N.)2108 (Rate/Dose Change - Provider: Marija Hussein Caro, R.N.) LORazepam 1 mg/mL in NaCl 0.9% 40 mL infusion (ATIVAN) (CAN ELED) 0019 (New Bag - Provider: Sanchez Ordoñez R.N.)0100 (Rate/Dose Verify - Provider: Sanchez Ordoñez R.N.)0200 (Rate/Dose Verify - Provider: Sanchez Ordoñez R.N.)0300 (Rate/Dose Verify - Provider: Sanchez Ordoñez R.N.) 1-10 mg/hr (1-10 mL/hr), intravenous, Co ntinuous, Starting on Mone 08/31/18 at 2345, Initiate at: 1 mg/hr., Titrate at: Other, Titrate: keep at 1 mg/hr, Goal: Other, Goal: For benzo withdrawal 0500 (Rate/Dose Veri fy - Provider: Sanchez Ordoñez R.N.)0641 (Stopped - Provider: Sanchez Ordoñez R.N.) propofol 10 mg/mL infusion (DIPRIVAN) (CANCELED) 2337 (New Bag - Provider: Sanchez Ordoñez R.N.) 0000 (Rate/Dose Verify - Provider: Sanchez Ordoñez R.N.)0131 (New Bag - Provider: Sanchez Ordoñez R.N.)0200 (Rate/Dose Verify - Provider: Sanchez Ordoñez R.N.)0500 (Rate/Dose Verify - Provider: Sanchez Ordoñez R.N.) 5-80 mcg/kg/min ? 75 kg Order-specific weight (2.25-36 mL/hr), intravenous, Continuous, Starting on Mone 08/31/18 at 2345, Type: Titrate, Initiate at: 5 mcg/kg/min., Titrate at: 5 mcg/kg/min. every 5 min., Goal: RASS -1 0515 (Not Gi snow - Provider: Sanchez Ordoñez R.N. - Reason: Other)0516 (Stopped - Provider: Sanchez Ordoñez R.N.) PRN Medication Order 08/31/2018 09/01/2018 09/02/2018 acetaminophen tablet 1,000 mg (TYLENOL) 210 (Given - Provider: Marija Hussein Caro RAnthonyNAnthony) 0810 (Given - Provider: Sima dunn R.NAnthony) 1,000 mg, oral, Every 6 hours PRN, mild pain or score 1-3 of 10, moderate pain or score 4-6 of 10, severe pain or score 7-10 of 10, headaches, fever, Starting on Tue09/01/18 at 2019 clonazePAM tablet 0.5 mg (KlonoPIN) 0811 (Not Given - Provider: Sonia KaurNAnthony - Reason: Patient/family refused) 0.5 mg, oral, 3 times daily PRN, seizure s, withdrawal, Starting on Tue09/01/18 at 1443 iohexol 300 mg iodine/mL solution 1-200 mL (OMNIPAQUE) (COMP LETED) 0416 (Given - Provider: Krystyna Salinas R.N. - Comment: [id number]) 1-200 mL, intravenous, Once in imaging, contrast, Starting on Tue09/01/18 at 0413, For 1 dose, Imaging Protocol Orders, Dose per Radiant Medication Guidelines naloxone injection 0.2 mg (NARCAN) 0.2 mg, intravenous, As needed, respirat ory depression, Starting on Tue09/01/18 at 1518, For respiratory rate less than 8 breaths per minute or RASS score of - 3, -4, -5. Apply oxygen to keep oxygen saturations greater than 90% and notify service. documented in this encounter
--- OUTSIDE RECORDS SUMMARY | 2022-07-08 11:01 | XMS_ITS | Clinical Summary ---
:1990 Author Organization [facility] Address [address] [place] [address] Care Team Providers Name Role Phone Unavailable Primary Care Provider Unavailable Source Comments Patient records contain information from all sites at [facility]. For routine questions regarding patient records, call [phone] during business hours, M-F 8:00 AM - 5:00 PM Central Time. Record requests for emergency care only can be directed to [phone] at any time.[facility] Allergies Active Allergy Reactions Severity Noted Date Comments [place] Derived Anaphylaxis, Other High 09/12/2016 Bleedin g from lesions (see comments) in mouth Latex Rash 01/18/2018 Medroxyprogesterone Other (see comments) 01/18/2018 my circulation in my legs changed. Medications Medication Sig Dispensed Refills Start Date End Date Status acetaminophen Take 325-650 mg by 0 Active (TYLENOL) 325 mg mouth every 4 (four) tablet hours as needed for pain or fever. amphetamine-dextroam Take 50 mg by mouth 0 8 Active phetamine (ADDERALL every morning. XR) 25 mg 24 hr capsule benzocaine (BABY Apply 1 application 0 09/19/2016 Active ORAJEL) 7.5 % oral topically 3 (three) gel times a day as needed for pain. For tooth pain buPROPion XL Take 150 mg by mouth 0 05/24/2018 Active (WELLBUTRIN XL) 150 daily. mg 24 hr tablet etonogestrel-ethinyl 0 Active estradiol (NUVARING) 0.12-0.015 mg/24 hr vaginal ring famotidine (PEPCID) Take 20 mg by mouth 0 08/28/2018 Active 20 mg tablet 2 (two) times a day. methadone Take 110 mg by mouth 0 Active (METHADOSE) 10 mg/mL daily. concentrated solution nicotine polacrilex Take 2 mg by mouth 0 09/19/2016 Active (NICORETTE) 2 mg gum as needed. QUEtiapine Take 50 mg by mouth. 0 12/30/2017 Active (SEROquel) 50 mg tablet valACYclovir TAKE 1 TABLET BY 0 08/16/2018 Active (VALTREX) 500 mg MOUTH DAILY FOR tablet SUPPRESSIVE THERAPIES. clonazePAM Take 1 tablet (1 mg 28 tablet 0 09/02/2018 Active (KlonoPIN) 1 mg total) by mouth 2 tablet (two) times a day for 14 days. Take 1 mg BID for two weeks. Further prescriptions from PCP. After initial two weeks begin slow taper by decreasing 0.25 mg each week. 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 ([facility]) from Last 3 Months Social History Tobacco Use Types Packs/Day Years Used Date Smoking Tobacco: Unknown Alcohol Use Standard Drinks/Week Comments No 0 (1 standard drink = 0.6 oz pure alcoho l) Sex Assigned at Date Recorded Not on file Last Filed Vital Signs Vital Sign Reading Time Taken Comments Blood Pressure 145/85 03/18/2022 3:29 PM CDT Pulse 101 03/18/2022 3:29 PM CDT Temperature 36.3 ??C (97.3 ??F) 09/02/2018 4:30 PM ED MANAGER Respiratory Rate 16 09/02/2018 4:30 PM ED MANAGER Oxygen Saturation 97% 09/02/2018 4:30 PM ED MANAGER Inhaled Oxygen Concentration - - Weight 73.1 kg (161 lb 2.5 oz) 09/01/2018 12:45 AM ED MANAGER Height 172 cm (5' 7.72) 08/31/2018 11:10 PM ED MANAGER Body Mass Index 24.71 08/31/2018 11:10 PM ED MANAGER Plan of Treatment Health Maintenance Due Date Last Done Comments Cervical Cancer Screening 1990 Controlled Substance 1988 Agreement Controlled Substance 1988 Monitoring Generalized Anxiety (DANY-7) 1988 HIV Screening 1988 Hepatitis C Screening 1988 COVID-19 Vaccine (#1) 1988 DTaP,Tdap,and Td Vaccines 2007 (1 - Tdap) Controlled Substance 02/24/2019 Monitoring (PHQ-9) Opioid Risk Assessment 02/24/2019 PEG assessment for Opioid 02/24/2019 therapy Glucose Test for Med 06/20/2020 06/20/2019, 09/02/2018, Monitoring 09/01/2018, Additional history exists Depression Screening 09/19/2021 (Annual PHQ-2) Influenza Vaccine (#1) 2022 05/24/2018, 05/24/2018, 07/20/2017 Hepatitis B Vaccines Completed 04/29/1997, 11/26/1996, 10/29/1996 Pneumococcal vaccine (0-64 Aged Out No lo nger eligible years) based on patient 's age to complete this topic Insurance Payer Benefit Plan Subscriber ID Effective Phone Address Typ e / Group Dates BLUE CROSS BCBS BLUE [id number] 2019-Prese ATTN: Stanley bai HMO BLUE SHIELD PLUS HMO [facility] [address] [address] [place] [address] Advance Directives For more information, please contact: [phone] Latest Code Status on File Code Status Date Activated Date Inactivated Comments Full Code 08/31/2018 11:31 PM 09/02/2018 7:40 PM Question Answer Comments Full Code: Not Discussed Due to: Patient does not have the capacity
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
--- OUTSIDE RECORDS SUMMARY | 2022-07-08 11:01 | XMS_ITS | Encounter Summary ---
:1990 Author Organization [facility] Address [address] [place] [address] Care Team Providers Name Role Phone Unavailable Primary Care Provider Unavailable Reason for Visit Reason Comments Triage Encounter Details Date Type Department Care Team Description 01/25/2022 Clinical Communication Department of Kerry Zuniga, Triage Neurology in [address] [phone] Social History Tobacco Use Types Packs/Day Years Used Date Smoking Tobacco: Unknown Alcohol Use Standard Drinks/Week Comments No 0 (1 standard drink = 0.6 oz pure alcoho l) Sex Assigned at Date Recorded Not on file documented as of this encounter Miscellaneous Notes Telephone Encounter - Kerry Zuniga R.N. - 01/29/2022 10:12 AM CDT I spoke with Jolynn. [facility]. They have requested EEG and MRI brain but she is unable to complete in [facility] and they are unable to sent order elsewhere for her to have done. She is looking to switch care to [place]. Records in care everywhere from [facility]. Telephone Encounter - Kerry Zuniga R.N. - 01/25/2022 1:04 PM CDT Images from the original note were not included. Consult/clinical question for: spell of altered consciousness Referred by: Dr. Bridges ([facility]) on 01/25/22 M to see if she has a neurologist already and where? Need records or refer back to previous neurologist. documented in this encounter Plan of Treatment Not on filedocumented as of this encounter Visit Diagnoses Not on filedocumented in this encounter
--- OUTSIDE RECORDS SUMMARY | 2022-07-08 11:01 | XMS_ITS | Encounter Summary ---
:1990 Author Organization [facility] Address [address] [place] [address] Care Team Providers Name Role Phone Unavailable Primary Care Provider Unavailable Reason for Referral Outpatient (Routine) - Authorized Specialty Diagnoses / Procedures Referred By Contact Refer red To Contact Neurology Fidel Stallings M.D., M.P .H. [address] [phone] Referral ID Status Reason Start Date Expiration Date Visits V isits Requested Authorized [id number] Authorized 04/12/2022 04/12/2023 1 1 Scheduling Instructions Video visit ok if the patient prefers Reason for Visit Outpatient (Routine) - Closed Specialty Diagnoses / Procedures Referred By Contact Refer red To Contact Video Medicine Diagnoses [facility] ([facility]) Fidel Stallings M.D., M.P.H. [address] [phone] Referral ID Status Reason Start Date Expiration Date Visits Requ ested Visits Authorized [id number] Closed 03/18/2022 03/18/2023 1 1 Encounter Details Date Type Department Care Team Description 04/12/2022 Telemedicine Department of Fidel Stallings M.D., [facility] in [place], M.P.H. ([facility]) [address] [phone] Social History Tobacco Use Types Packs/Day Years Used Date Smoking Tobacco: Unknown Alcohol Use Standard Drinks/Week Comments No 0 (1 standard drink = 0.6 oz pure alcoho l) Sex Assigned at Date Recorded Not on file documented as of this encounter Progress Notes Fidel Stallings M.D., M.P.H. - 04/12/2022 10:00 AM CDT Consult conducted via real-time audio/video technology by Fidel Stallings M.D., M.P.H. in [facility] to the patient in patient's home. It is a pleasure to see Jolynn again. Ms. Mcdonald is a 31 y/o woman with history of substance abuse, alcohol use, anxiety, depression, agoraphobia and spells. She was first seen in 02/2022 for spells of losing awareness with body shaking, which stopped after she was started on lamotrigine for mood. She returns today to review testing results and discuss next steps. MRI showed mild nonspecific white matter hyperintensities. EEG showed no epileptiform discharges. She has not had any spell since that time. Her lamotrigine was increased to 150mg BID. # Spells, indeterminate. could be epileptic seizures, withdraw seizures and/or nonepileptic spells - She will let me know if she has additional spells. - I would support continuing Lamotrigine - If she has recurrent spells without particular trigger increasing lamotrigine versus prolonged EEGmonitoring could be considered. - Tentatively follow-up in 3 months or so. Total of 20 minutes is spent on the date of the encounter. Time includes dcuo-ki-jukx interview and evaluation, counseling the patient, reviewing records, reviewing relevant diagnostic tests, documenting clinical information in the electronic records and communicating with other providers. documented in this encounter Plan of Treatment Scheduled Referrals Name Type Priority Associated Diagnoses Order S [facility] Neurology office Outpatient Referral Routine Expe cted: visit (clinic) 07/13/2022 (Approximate), Expires: 07/13/2023 documented as of this encounter Visit Diagnoses Diagnosis Spells Neurological (HCC) documented in this encounter
--- OUTSIDE RECORDS SUMMARY | 2022-07-08 11:01 | XMS_ITS | Encounter Summary ---
:1990 Author Organization [facility] Address [address] [place] [address] Care Team Providers Name Role Phone Unavailable Primary Care Provider Unavailable Reason for Visit MRI/CAT/PET Scan (Routine) - Closed Specialty Diagnoses / Procedures Referred By Contact Refer red To Contact Radiology Diagnoses [facility] ([facility]) Fidel Stallings M.D., M.P.H. [facility] Procedures MR Brain without and with IV Contrast [address] [place] [phone] Referral ID Status Reason Start Date Expiration Date Visits Requ ested Visits Authorized [id number] Closed 03/18/2022 03/18/2023 1 1 Encounter Details Date Type Department Care Team Description 03/31/2022 Ancillary Procedure Department of Fidel Stallings [facility] Radiology, Allison Luis, M.P.H. ([facility]) [facility] in [address] [place], [place] [address] [phone] [address] [phone] [place], [place] (Work) [phone] Social History Tobacco Use Types Packs/Day Years Used Date Smoking Tobacco: Unknown Alcohol Use Standard Drinks/Week Comments No 0 (1 standard drink = 0.6 oz pure alcoho l) Sex Assigned at Date Recorded Not on file documented as of this encounter Plan of Treatment Not on filedocumented as of this encounter Procedures Procedure Name Priority Date/Time Associated Comments Diagnosis MR BRAIN WITHOUT RAD - Routine 03/31/2022 2:34 [facility] Results for this AND WITH IV (most inpatients PM CDT (HCC) procedure a re in CONTRAST and all the results outpatients) section. documented in this encounter Results MR Brain without and [...] Fidel Stallings M.D., M.P.H. IMG MRI PROCEDURES documented in this encounter Visit Diagnoses Diagnosis Spells Neurological (HCC) documented in this encounter Administered Medications Inactive Administered Medications - up to 3 most recent administrations Medication Order MAR Action Action Date Dose Rate Site gadobutrol injection 0.01-30 mL Given 03/31/2022 2:30 PM CDT 7 m L (GADAVIST) 0.01-30 mL, intravenous, Once in imaging, contrast, Starting on Tue03/31/22 at 1354, For 1 dose, Imaging Protocol Orders, Dose per Radiant Medication Guidelines Intrathecal doses greater than 0.25 mL not recommended. documented in this encounter
--- OUTSIDE RECORDS SUMMARY | 2022-07-08 11:02 | XMS_ITS | Encounter Summary ---
:1990 Author Organization [facility] Address [address] [place] [address] Care Team Providers Name Role Phone Ernesto Castellano PA-C Primary Care Provider Reason for Visit Reason Comments Forms From [facility] Encounter Details Date Type Department Care Team Description 01/09/2020 Telephone [place] [id number] Family Ernesto Castellano F orms (From [id number] [place] [address]) [place], [place] [id number] [phone] Social History Tobacco Use Types Packs/Day Years Used Date Smoking Tobacco: Every Day Cigarettes 0.3 Smokeless Tobacco: Never Comments: working on quitting Alcohol Use Standard Drinks/Week Comments Not Currently 0 (1 standard drink = 0.6 oz pure alcoho l) sober [id number] Alcohol Habits Answer Date Recorded How often do you have a drink containing alcohol? Never 08/09/2019 How many drinks containing alcohol do you have on a typical Not asked day when you are drinking? How often do you have six or more drinks on one occasion? No t asked Sex Assigned at Date Recorded Not on file documented as of this encounter Nursing Notes Loretta Ching LPN - 01/10/2020 5:32 PM CDT Forms were signed by covering provider and faxed back as requested. Original sent to [facility]. Loretta Ching LPN - 01/10/2020 2:54 PM CDT Current medication list faxed to [facility] per provider, forms were placed back in providers folder for him to review and sign when he returns back to clinic next week. Ernesto Castellano PA-C - 01/10/2020 10:48 AM CDT Methadone was only on our list as a historic medication per patient, receiving through a Methadone clinic. I do not see any refills for Methadone through the [facility] website for [place] or [place] but can only go back a year. I don't know if Methadone clinics distribute Methadone without going through the [facility] and so this would have to be confirmed by the Methadone clinic she is/was seen at. Other medications would be current however she is currently being seen by psychiatry, I believe by Sergio Singh, that works for [facility] (from what I can see by searching). He has been the last to fill her medications per [facility] and so he may have changed her medications, other then the glycopyrrolate and Valacyclovir that we prescribe. I removed Methadone from her Medication list and can send current one we have on file. I am not ableto complete the paperwork probably until next week. Ana Krishna LPN - 01/09/2020 6:23 PM CDT Received faxed form from [facility] requesting updated medication list and states Jolynn is currently taking the Methadone. Per last visit with Mario Castellano 08-09-19 Jolynn was weaning off Methadone and was to stop taking. Per [facility] in [place], [place] Methadone has not been filled there or any [facility] the Pharmacist could see. I tried to call Jolynn and no answer. Will call the RN at [facility] at [phone] tomorrow. She works between 5:30 am-2:00PM to verify where Jolynn is taking the Methadone. Will Keep the form in Mario's folder on 2nd floor until have spoken with Erika. Will check with Mario also, please advise. documented in this encounter Plan of Treatment Not on filedocumented as of this encounter Visit Diagnoses Not on filedocumented in this encounter Care Teams Russian Language Professor Relationship Specialty Start Date End Date Ernesto Castellano PA-C PCP - General Physician Green[employer] Polisher Operator 05/30/19 [address] [place] [address] documented as of this encounter
--- OUTSIDE RECORDS SUMMARY | 2022-07-08 11:02 | XMS_ITS | Encounter Summary ---
:1990 Author Organization [facility] Address [address] [place] [address] Care Team Providers Name Role Phone Ernesto Castellano PA-C Primary Care Provider Reason for Visit Reason Comments Refill LORazepam (ATIVAN) 1 MG tabl et [Pharmacy Med Name: LORAZEPAM 1MG TABLETS] Encounter Details Date Type Department Care Team Description [facility]LOR[facility]epam Medicine [id number] (ATIVAN) 1 MG tablet [address] [place] [address] [Pharmacy Med Name: [place], [place] [phone] (Wo rk) LORAZEPAM 1MG TABLETS]) [id number] [phone] Social History Tobacco Use Types Packs/Day Years Used Date Smoking Tobacco: Every Day Cigarettes 0.3 Smokeless Tobacco: Never Comments: working on quitting Alcohol Use Standard Drinks/Week Comments Not Currently 0 (1 standard drink = 0.6 oz pure alcoho l) sober [id number] Alcohol Habits Answer Date Recorded How often [...] documented as of this encounter Nursing Notes Chelita Umaña - 03/31/2020 9:00 AM CDT Medication Refill - Overdue for Visit Called patient, was: Unable to reach patient 2nd call attempted. Unsuccessful in reaching patient. MAILBOX IS FULL, UNABLE TO REACH PT. Frontline: Route to clinician identified in nursing documentation below Clinician Action: Unsuccessful in reaching patient to schedule, requests refill. Recommend using Refuse All quick action in toolbar, to address request. Olivia Vasquez MD - 03/28/2020 9:54 AM CDT Refill completed and no further refills will be given prior to a visit. Interface, Out Surescripts Prov Query - 03/28/2020 9:19 AM CDT LORazepam (ATIVAN) 1 MG tablet [Pharmacy Med Name: LORAZEPAM 1MG TABLETS] Medication started: 02/08/2019 Last ordered by OLIVIA VASQUEZ: 09/13/2019 (197 days ago) QTY: 60, Refills: 0, Simg twice dailyas needed for anxiety (changed) -> The requested sig has changed from the last order. -> Medication cannot be delegated. -> A qualifying visit was not found within the last 2 years. Last qualifying visit: None (A recent visit (in Family Practice with ERNESTO CASTELLANO) was found) Next scheduled visit: None Powered by QuicklyChat, Reference: [id number], 03/28/2020 9:19:13 AM CDT, Pool: FARZANA REFILL ([id number]) Interface, Out MoveInSync Prov Query - 03/28/2020 9:19 AM CDT No Careplan note found by [employer]. documented in this encounter Plan of Treatment Not on filedocumented as of this encounter Visit Diagnoses Diagnosis Anxiety Anxiety state, unspecified documented in this encounter Care Teams Math Tutor Relationship Specialty Start Date End Date Ernesto Castellano PA-C PCP - General Physician Supervisor [employer]ing [employer] Pasting 05/30/19 [address] [place] [address] documented as of this encounter
--- OUTSIDE RECORDS SUMMARY | 2022-07-08 11:02 | XMS_ITS | Encounter Summary ---
:1990 Author Organization [facility] Address [address] [place] [address] Care Team Providers Name Role Phone Ernesto Castellano PA-C Primary Care Provider Reason for Visit Reason Comments MEDICATION CHECK Encounter Details Date Type Department Care Team Description 08/09/2019 Office Visit [facility] Ernesto Castellano, Anxiety (Primary Dx); [facility] Attention deficit hyperactivity disorder (ADHD), predominantly inattentive type; [address] [address] [facility] Persistent depressive disorder; [place], [place] Chronic pain syndrome [id number] [phone] Social History Tobacco Use Types Packs/Day Years Used Date Smoking Tobacco: Every Day Cigarettes 0.3 Smokeless Tobacco: Never Comments: working on quitting Alcohol Use Standard Drinks/Week Comments Not Currently 0 (1 standard drink = 0.6 oz pure alcoho l) sober [id number] Alcohol Habits Answer Date Recorded How often [...] Sign Reading Time Taken Comments Blood Pressure 106/74 08/09/2019 1:03 PM SENIOR IT SPECIALIST Pulse 77 08/09/2019 1:03 PM SENIOR IT SPECIALIST Temperature - - Respiratory Rate 16 08/09/2019 1:03 PM SENIOR IT SPECIALIST Oxygen Saturation - - Inhaled Oxygen Concentration - - Weight 67.1 kg (148 lb) 08/09/2019 1:03 PM SENIOR IT SPECIALIST Height 167 cm (5' 5.75) 08/09/2019 1:03 PM SENIOR IT SPECIALIST Body Mass Index 24.07 08/09/2019 1:03 PM SENIOR IT SPECIALIST documented in this encounter Patient Instructions Patient InstructionsErnesto Castellano PA-C - 08/09/2019 1:00 PM CST Plan: 1). Will resume Adderall 25mg XR daily. 2). For anxiety: Continue Wellbutrin 150mg XL. Will try adding Lexapro 20mg daily. (Start with 10mg (1/2 tablet) daily for first week and then increase to 20mg if well tolerated. 3). For Buspar: Will try weaning off. Go back to 1 tablet twice a day, for a few days, and then oncedaily for a few days, then can stop, while starting the Lexapro. 4). Will continue Lorazepam for now. 5). Continue to wean Methadone per pain clinic. 6). Follow up in 1-2 months to recheck response to Lexapro. 7). Follow up with any other acute issues or concerns. OR IT SPECIALIST documented in this encounter Progress Notes Ernesto Castellano PA-C - 08/09/2019 1:00 PM CST Chief Complaint Patient presents with ??? MEDICATION CHECK History of Present Illness: Jolynn Mcdonald is a 29 y.o. female, last seen 07/12/2019 with the followin). Anxiety: Currently taking Wellbutrin 150mg XL and Buspar 30mg twice daily however not really controlling anxiety and still using Lorazepam regularly for breakthrough anxiety. Discussed trial of adding additional SSRI, and weaning Buspar if not helping. Could consider trial of Propranolol for more symptomatic control. No suicidal thoughts. 2). ADHD: Was taking Adderall 25mg XR. At last visit wanted to try non-stimulant medication and so did Straterra, however did not feel Straterra was effective at all and so we will go back to Adderall 25mg XR. 3). Chronic pain: Continues to work with pain clinic to try to wean off Methadone. Review of Systems: Constitutional: No fevers, chills, fatigue CHEST: No cough or breathing difficulty HEART: No chest pain, no edema. ABD: No abdominal pain, nausea, vomiting or diarrhea. M/S: No back pain, joint pain or swelling, no muscle pain. NEURO: No headaches, dizziness, weakness SKIN: No rashes or itching, no worrisome skin lesions. PSYCH: Positive for anxiety, depression, concentration issues, some sleep difficulties. No current suicidal thoughts. Past Medical History: Reviewed and updated in medical record at visit Past Surgical History: Reviewed and updated in medical record at visit Family History: Reviewed and updated in medical record at visit Medications: Reviewed and reconciled in medical record at visit. Allergies: Reviewed and updated in medical record at visit. Physical Exam: Vitals: 08/09/19 1303 BP: 106/74 Pulse: 77 Resp: 16 GEN: Alert, oriented, well nourished/hydrated in NAD EYES: PEERL, EOMI CHEST: Normal effort, CTA. HEART: RRR, No audible murmur, rub or gallop. SKIN: Warm and dry without rash M/S: No joint swelling or redness. NEURO: CN 2-12 intact, non-focal exam PSYCH: Alert & oriented. Somewhat flat affect. Normal speech pattern, normal interaction. Insight good. Diagnosis: Encounter Diagnoses Name Primary? Anxiety (HRC) Yes ??? Attention deficit hyperactivity disorder (ADHD), predominantly inattentive type (HRC) ??? Persistent depressive disorder (HRC) Plan: 1). Will resume Adderall 25mg XR daily. 2). For anxiety: Continue Wellbutrin 150mg XL. Will try adding Lexapro 20mg daily. (Start with 10mg (1/2 tablet) daily for first week and then increase to 20mg if well tolerated. 3). For Buspar: Will try weaning off. Go back to 1 tablet twice a day, for a few days, and then oncedaily for a few days, then can stop, while starting the Lexapro. 4). Will continue Lorazepam for now. 5). Continue to wean Methadone per pain clinic. 6). Follow up in 1-2 months to recheck response to Lexapro. 7). Follow up with any other acute issues or concerns. Total time of visit: 15 minutes, 10 minutes spent in counseling. OR IT SPECIALIST documented in this encounter Plan of Treatment Not on filedocumented as of this encounter Visit Diagnoses Diagnosis Anxiety (HRC) - Primary Anxiety state, unspecified Attention deficit hyperactivity disorder (ADHD), predominantly inattentive type (HRC) Persistent depressive disorder (HRC) Chronic pain syndrome documented in this encounter Care Teams Quill Collector Relationship Specialty Start Date End Date Ernesto Castellano PA-C PCP - General Physician Payroll Manager 05/30/19 [address] [place] [address] documented as of this encounter
--- OUTSIDE RECORDS SUMMARY | 2022-07-08 11:02 | XMS_ITS | Encounter Summary ---
:1990 Author Organization [facility] Address [address] [place] [address] Care Team Providers Name Role Phone Ernesto Castellano PA-C Primary Care Provider Encounter Details Date Type Department Care Team Description 05/08/2020 Notes/Orders [place] [address] Family MatheusLewis MD [facility] [address] [facility] [address] [place] [address] [place] [address] [phone] Social History Tobacco Use Types Packs/Day Years Used Date Smoking Tobacco: Every Day Cigarettes 0.3 Smokeless Tobacco: Never Comments: working on quitting Alcohol Use Standard Drinks/Week Comments Not Currently 0 (1 standard drink = 0.6 oz pure alcoho l) sober [id number] Alcohol Habits Answer Date Recorded How often [...] on filedocumented in this encounter Care Teams Group Captain Relationship Specialty Start Date End Date Ernesto Castellano PA-C PCP - General Physician Engineering Officer 05/30/19 [address] [place], [place] [id number] documented as of this encounter
--- OUTSIDE RECORDS SUMMARY | 2022-07-08 11:02 | XMS_ITS | Encounter Summary ---
:1990 Author Organization [facility] Address [address], [place] [address] Care Team Providers Name Role Phone Ernesto Castellano PA-C Primary Care Provider Encounter Details Date Type Department Care Team Description 09/09/2021 Lab Requisition [facility] Jasper Larsen Encounter for screening for infections with a predominantly sexual mode of transmission; [address] Nathan MD Dizziness and giddiness; [place], [place] [address] COUNTRY Other g eneral symptoms and signs; [address] [facility] Abnormal weight loss [phone] [place] [address] Social History Tobacco Use Types Packs/Day Years Used Date Smoking Tobacco: Every Day Cigarettes 0.3 Smokeless Tobacco: Never Comments: working on quitting Alcohol Use Standard Drinks/Week Comments Not Currently 0 (1 standard drink = 0.6 oz pure alcoho l) sober [id number] Alcohol Habits Answer Date Recorded How often [...] Name Priority Date/Time Associated Diagnosis Comme nts CBC AND DIFFERENTIAL Routine 09/11/2021 3:19 Encounter for Res ults for this PANEL PM ORGANIC PREPARATION ANALYST screening for procedure are in infections with a the result s predominantly sexual section . mode of transmis dee Dizziness and giddiness Other general symptoms and sig ns Abnormal weight loss HEPATITIS PANEL ACUTE Routine 09/11/2021 3:19 Encounter for Re sults for this WITH REFLEX TO PM ORGANIC PREPARATION ANALYST screening for procedure ar e in CONFIRMATION infections with a the result s predominantly sexual section . mode of transmis dee Dizziness and giddiness Other general symptoms and sig ns Abnormal weight loss COMPLETE BLOOD Routine 09/11/2021 3:19 Encounter for Results f or this COUNT-W/DIFF PM ORGANIC PREPARATION ANALYST screening for procedure are in infections with a the result s predominantly sexual section . mode of transmis dee Dizziness and giddiness Other general symptoms and sig ns Abnormal weight loss COMP METABOLIC PANEL Routine 09/11/2021 3:19 Encounter for Res ults for this PM ORGANIC PREPARATION ANALYST screening for procedure are in infections with a the result s predominantly sexual section . mode of transmis dee Dizziness and giddiness Other general symptoms and sig ns Abnormal weight loss AMYLASE Routine 09/11/2021 3:19 Encounter for Results for this PM ORGANIC PREPARATION ANALYST screening for procedure are in infections with a the result s predominantly sexual section . mode of transmis dee Dizziness and giddiness Other general symptoms and sig ns Abnormal weight loss documented in this encounter Results (ABNORMAL) Complete Blood Count-W/Diff (09/11/2021 3:19 PM ORGANIC PREPARATION ANALYST) [facility] gist Method Time Signature WBC 11.1 (H) 3.5 - 10.5 09/11/2021 [facility] x10(9)/L 7:22 PM ORGANIC PREPARATION ANALYST LABORATORY RBC 5.09 (H) 3.90 - 09/11/2021 [facility] 5.03 7:22 PM ORGANIC PREPARATION ANALYST LABORATORY x10(12)/L Hemoglobin 15.9 (H) 12.0 - 09/11/2021 [facility] 15.5 g/dL 7:22 PM ORGANIC PREPARATION ANALYST LABORATORY HCT 47.7 (H) 34.9 - 09/11/2021 [facility] 44.5 % 7:22 PM ORGANIC PREPARATION ANALYST LABORATORY MCV 93.7 80.0 - 09/11/2021 [facility] 100.0 fL 7:22 PM ORGANIC PREPARATION ANALYST LABORATORY MCH 31.2 27.6 - 09/11/2021 [facility] 33.3 pg 7:22 PM ORGANIC PREPARATION ANALYST LABORATORY MCHC 33.3 31.5 - 09/11/2021 [facility] 35.2 g/dL 7:22 PM ORGANIC PREPARATION ANALYST LABORATORY RDW 13.2 11.9 - 09/11/2021 [facility] 15.5 % 7:22 PM ORGANIC PREPARATION ANALYST LABORATORY Platelets 382 150 - 450 09/11/2021 [facility] x10(9)/L 7:22 PM ORGANIC PREPARATION ANALYST LABORATORY Automated NRBC 0 <=0 /100 09/11/2021 [facility] WBC 7:22 PM ORGANIC PREPARATION ANALYST LABORATORY Neutrophil 7.4 (H) 1.7 - 7.0 09/11/2021 [facility] Absolute 10(9)/L 7:22 PM ORGANIC PREPARATION ANALYST LABORATORY Lymphocyte 2.9 1.0 - 4.8 09/11/2021 [facility] Absolute 10(9)/L 7:22 PM ORGANIC PREPARATION ANALYST LABORATORY Monocytes 0.8 0.2 - 0.9 09/11/2021 [facility] Absolute 10(9)/L 7:22 PM ORGANIC PREPARATION ANALYST LABORATORY Eosinophil 0.1 0.0 - 0.5 09/11/2021 [facility] Absolute 10(9)/L 7:22 PM ORGANIC PREPARATION ANALYST LABORATORY Basophil 0.0 0.0 - 0.3 09/11/2021 [facility] Absolute 10(9)/L 7:22 PM ORGANIC PREPARATION ANALYST LABORATORY Immature Gran % 0.4 0.0 - 0.5 09/11/2021 [facility] % 7:22 PM ORGANIC PREPARATION ANALYST LABORATORY Specimen Anatomical Collection Method / Collection Time Recei alka Time (Source) Location / Volume Laterality Blood Venipuncture / 09/11/2021 3:19 09/11/2021 7:02 Unknown PM ORGANIC PREPARATION ANALYST PM ORGANIC PREPARATION ANALYST Jasper Larsen MD LAB_1 Performing Organization Address City/State/ZIP Code Phon e Number [facility] [address] [place] [address] Acute Hepatitis Panel (with Reflex) (09/11/2021 3:19 PM ORGANIC PREPARATION ANALYST) [facility] Method Time Signature Hepatitis A Negative Negative 09/11/2021 [facility] Antibody, IgM (Non (Non 7:54 PM ORGANIC PREPARATION ANALYST LABORATORY Reactive) Reactive) Comment: IgM anti-HAV not detected. Does not exclude the possibility of exposure to or infection with HAV. Levels of IgM ant i-HAV may be below the cut-off in early infection. Hepatitis Bc Negative (Non Negative 09/11/2021 7:[address] Antibody,IgM Reactive) (Non-Reactive) PM ORGANIC PREPARATION ANALYST LABORATORY Comment: IgM anti-HBc not detected. Does not exclude the possibility of exposure to or infection with HBV. Hepatitis B Negative (Non Negative (Non 09/11/2021 7:54 [facility] Surface Antigen Reactive) Reactive) PM ORGANIC PREPARATION ANALYST LABORATORY Hepatitis C Negative (Non Negative (Non 09/11/2021 7:54 [facility] Antibody Reactive) Reactive) PM ORGANIC PREPARATION ANALYST LABORATORY Comment: Antibodies to HCV not detected. Does not exclude the possiblity of exposure to HCV. Specimen Anatomical Collection Method / Collection Time Recei alka Time (Source) Location / Volume Laterality Blood Venipuncture / 09/11/2021 3:19 09/11/2021 7:03 Unknown PM ORGANIC PREPARATION ANALYST PM ORGANIC PREPARATION ANALYST Jasper Larsen MD LAB_1 Performing Organization Address City/State/ZIP Code Phon e Number [facility] [address] [place] [address] (ABNORMAL) Comp Metabolic Panel (09/11/2021 3:19 PM ORGANIC PREPARATION ANALYST) [facility] Method Time Signature Sodium 140 136 - 145 09/11/2021 [facility] mmol/L 7:33 PM ORGANIC PREPARATION ANALYST LABORATORY Potassium 3.9 3.5 - 5.1 09/11/2021 [facility] mmol/L 7:33 PM ORGANIC PREPARATION ANALYST LABORATORY Chloride 101 98 - 109 09/11/2021 [facility] mmol/L 7:33 PM ORGANIC PREPARATION ANALYST LABORATORY CO2 27 20 - 29 09/11/2021 [facility] mmol/L 7:33 PM ORGANIC PREPARATION ANALYST LABORATORY Anion Gap 12 7 - 16 09/11/2021 [facility] mmol/L 7:33 PM ORGANIC PREPARATION ANALYST LABORATORY Calcium 9.5 8.4 - 10.4 09/11/2021 [facility] mg/dL 7:33 PM ORGANIC PREPARATION ANALYST LABORATORY BUN 6 (L) 7 - 26 09/11/2021 [facility] mg/dL 7:33 PM ORGANIC PREPARATION ANALYST LABORATORY Creatinine 0.69 0.55 - 09/11/2021 [facility] 1.02 mg/dL 7:33 PM ORGANIC PREPARATION ANALYST LABORATORY GFR, Estimated >60 >60 09/11/2021 [facility] mL/min/1.7 7:33 PM ORGANIC PREPARATION ANALYST LABORATORY 3m2 Alkaline 92 40 - 150 09/11/2021 [facility] Phosphatase U/L 7:33 PM ORGANIC PREPARATION ANALYST LABORATORY AST (SGOT) 12 10 - 40 09/11/2021 [facility] U/L 7:33 PM ORGANIC PREPARATION ANALYST LABORATORY ALT (SGPT) 14 0 - 55 U/L 09/11/2021 [facility] 7:33 PM ORGANIC PREPARATION ANALYST LABORATORY Bilirubin, Total 0.5 0.2 - 1.2 09/11/2021 [facility] mg/dL 7:33 PM ORGANIC PREPARATION ANALYST LABORATORY Protein, Total 8.1 6.4 - 8.3 09/11/2021 [facility] g/dL 7:33 PM ORGANIC PREPARATION ANALYST LABORATORY Albumin 4.5 3.5 - 5.0 09/11/2021 [facility] g/dL 7:33 PM ORGANIC PREPARATION ANALYST LABORATORY Glucose 101 (H) 70 - 100 09/11/2021 [facility] mg/dL 7:33 PM ORGANIC PREPARATION ANALYST LABORATORY Comment: The given reference range is fo r the fasting state. Non-fasting reference range for glucose is 70 - 180 mg/dL. Hours Fasting Unknown 09/11/2021 7:33 PM ORGANIC PREPARATION ANALYST [facility] Specimen Anatomical Collection Method / Collection Time Recei alka Time (Source) Location / Volume Laterality Blood Venipuncture / 09/11/2021 3:19 09/11/2021 7:03 Unknown PM ORGANIC PREPARATION ANALYST PM ORGANIC PREPARATION ANALYST Jasper Larsen MD LAB_1 Performing Organization Address City/[facility] Phon e Number [facility] [address] [place] [address] Amylase (09/11/2021 3:19 PM ORGANIC PREPARATION ANALYST) P athologist Signature Amylase 63 25 - 125 09/11/2021 [facility] U/L 7:33 PM ORGANIC PREPARATION ANALYST LABORATORY Specimen Anatomical Collection Method / Collection Time Recei alka Time (Source) Location / Volume Laterality Blood Venipuncture / 09/11/2021 3:19 09/11/2021 7:03 Unknown PM ORGANIC PREPARATION ANALYST PM ORGANIC PREPARATION ANALYST Jasper Larsen MD LAB_1 Performing Organization Address [facility] Phon e Number [facility] [address] [place] [address] documented in this encounter Visit Diagnoses Diagnosis Encounter for screening for infections w ith a predominantly sexual mode of transmission Dizziness and giddiness Other general symptoms and signs Abnormal weight loss Loss of weight documented in this encounter Care Teams Home Care Giver Relationship Specialty Start Date End Date Ernesto Castellano PA-C PCP - General Physician Retail Selling Specialist 05/30/19 [address] [place] [address] documented as of this encounter
--- OUTSIDE RECORDS SUMMARY | 2022-07-08 11:02 | XMS_ITS | Encounter Summary ---
:1990 Author Organization [facility] Address [address] [place] [address] Care Team Providers Name Role Phone Ernesto Castellano PA-C Primary Care Provider Reason for Visit Reason Comments Forms Encounter Details Date Type Department Care Team Description 05/08/2020 Telephone [place] [id number] [place] [address] Lewis Jarvis MD [facility] [address] [facility] [address] [place] [address] [place] [address] [phone] Social History Tobacco Use Types Packs/Day Years Used Date Smoking Tobacco: Every Day Cigarettes 0.3 Smokeless Tobacco: Never Comments: working on quitting Alcohol Use Standard Drinks/Week Comments Not Currently 0 (1 standard drink = 0.6 oz pure alcoho l) sober [id number] Alcohol Habits Answer Date Recorded How often [...] documented as of this encounter Nursing Notes Nasrin Contreras CMA - 05/09/2020 10:35 AM CDT Spoke with Leann, a nurse from [facility], and informed her of 's note. Leann will forward message on to the other nursing staff and have Jolynn follow up with her psychiatrist for medication questions and refills. No further questions at this time. Trey Jarvis MD - 05/08/2020 5:07 PM CDT Received paperwork from [facility]. It looks like she has been working with Dr Wyatt Singh. Most recent benzo rx for xanax (04/25) was sent in by that provider and adderall as well. The rest of the mental health prescriptions date back to 2018, with the except of seroquel, which was prescribed by Mario Castellano in October. She has not been in our clinic since July, so it's not clear if she is still taking that or what other medications her psychiatrist is prescribing. I would recommend they reach out to them for an updated medication list. I have updated her problem list. documented in this encounter Plan of Treatment Not on filedocumented as of this encounter Visit Diagnoses Not on filedocumented in this encounter Care Teams Swage Toolsetter Relationship Specialty Start Date End Date Ernesto Castellano PA-C PCP - General Physician Chief Writer 05/30/19 [address] [place] [address] documented as of this encounter
--- OUTSIDE RECORDS SUMMARY | 2022-07-08 11:02 | XMS_ITS | Encounter Summary ---
:1990 Author Organization [email or web address] Address [address] [place] [address] Care Team Providers Name Role Phone Ernesto Castellano PA-C Primary Care Provider Encounter Details Date Type Department Care Team Description 09/07/2021 Lab Requisition [facility] Jasper Larsen Encounter for screening for infections with a predominantly sexual mode of transmission; 6500 Surinder Nathan MD Unspecified abnormal findings in urine [place], [place] [address] [facility] [address] [facility] [phone] [place] [address] Social History Tobacco Use Types Packs/Day Years Used Date Smoking Tobacco: Every Day Cigarettes 0.3 Smokeless Tobacco: Never Comments: working on quitting Alcohol Use Standard Drinks/Week Comments Not Currently 0 (1 standard drink = 0.6 oz pure alcoho l) sober [id number] Alcohol Habits Answer Date Recorded How often [...] Name Priority Date/Time Associated Diagnosis Comme nts URINE CULTURE Routine 09/07/2021 6:15 AM Encounter for Results for this LINK TRAINER MAINTENANCE MAN screening for procedure are in infections with a the result s predominantly sexual section . mode of transmis dee Unspecified abnormal findings in urine TRICHOMONAS Routine 09/07/2021 6:15 AM Encounter for Results for this VAGINALIS, MOLECULAR LINK TRAINER MAINTENANCE MAN screening for proced ure are in DETECTION, infections with a the result s URINE/URETHRA predominantly sexual sectio n. mode of transmis dee Unspecified abnormal findings in urine CHLAMYDIA & GC, Routine 09/07/2021 6:15 AM Encounter for Resul ts for this URINE (14 YEARS AND LINK TRAINER MAINTENANCE MAN screening for procedu re are in OLDER) infections with a the result s predominantly sexual section . mode of transmis dee Unspecified abnormal findings in urine UA WITH MICROSCOPIC Routine 09/07/2021 6:15 AM Encounter for R esults for this LINK TRAINER MAINTENANCE MAN screening for procedure are in infections with a the result s predominantly sexual section . mode of transmis dee Unspecified abnormal findings in urine documented in this encounter Results (ABNORMAL) Urine Culture (09/07/2021 6:15 AM LINK TRAINER MAINTENANCE MAN) [facility] Signature Urine Culture Growth (A) 09/08/2021 [facility] 6:41 PM LINK TRAINER MAINTENANCE MAN [facility] Urine Culture <10,000 CFU/mL 09/08/2021 [facility] Multiple 6:41 PM LINK TRAINER MAINTENANCE [facility] Bacterial Morphotypes Specimen Anatomical Collection Method Collection Time Receive d Time (Source) Location / / Volume Laterality Urine URINE SPECIMEN Non-blood 09/07/2021 6:15 AM 021 8:23 COLLECTION, CLEAN Collection / LINK TRAINER MAINTENANCE MAN PM LINK TRAINER MAINTENANCE MAN CATCH / Unknown Unknown Jasper Larsen MD LAB_1 Performing Organization Address City/State/ZIP Code Phon e Number [address] [address] (ABNORMAL) UA with Microscopic: Clean Catch (09/07/2021 6:15 AM LINK TRAINER MAINTENANCE MAN) [facility] [employer] Method Time Signature Urine Color Emily (A) Straw-Yellow 09/07/2021 [facility] 10:03 PM LABORATORY LINK TRAINER MAINTENANCE MAN Urine Clarity Hazy (A) Clear 09/07/2021 [facility] 10:03 PM LABORATORY LINK TRAINER MAINTENANCE MAN Specific 1.025 1.005 - 09/07/2021 [facility] [place], Urine 1.030 10:03 PM LABORATORY LINK TRAINER MAINTENANCE MAN PH Urine 6.0 5.0 - 8.0 09/07/2021 [facility] 10:03 PM LABORATORY LINK TRAINER MAINTENANCE MAN Protein, Urine 30 (A) Negative 09/07/2021 [facility] Qual (mg/dL) 10:03 PM LABORATORY LINK TRAINER MAINTENANCE MAN Glucose Urine Negative Negative 09/07/2021 [facility] Qual (mg/dL) 10:03 PM LABORATORY LINK TRAINER MAINTENANCE MAN Ketones, Urine Trace (A) Negative 09/07/2021 [facility] (mg/dL) 10:03 PM LABORATORY LINK TRAINER MAINTENANCE MAN Urobilinogen, 2.0 (A) <2.0 09/07/2021 [facility] Urine (EU/dL) 10:03 PM LABORATORY LINK TRAINER MAINTENANCE MAN Bilirubin Negative Negative 09/07/2021 [facility] Urine 10:03 PM LABORATORY LINK TRAINER MAINTENANCE MAN Blood, Urine Negative Neg/Trace 09/07/2021 [facility] 10:03 PM LABORATORY LINK TRAINER MAINTENANCE MAN Nitrite Urine Negative Negative 09/07/2021 [facility] 10:03 PM LABORATORY LINK TRAINER MAINTENANCE MAN Leukocyte Est. Negative Negative 09/07/2021 [facility] 10:03 PM LABORATORY LINK TRAINER MAINTENANCE MAN Red Blood 4 (H) 0 - 3 /HPF 09/07/2021 [facility] Cells 10:03 PM LABORATORY LINK TRAINER MAINTENANCE MAN White Blood 8 (H) 0 - 5 /HPF 09/07/2021 [facility] Cells 10:03 PM LABORATORY LINK TRAINER MAINTENANCE MAN Bacteria Few (A) None Seen 09/07/2021 [facility] /HPF 10:03 PM LABORATORY LINK TRAINER MAINTENANCE MAN Squamous Occasional None Seen, 09/07/2021 [facility] Epithelial Occasional, 10:03 PM LABORATORY Cells Few /HPF LINK TRAINER MAINTENANCE MAN Mucus Present (A) None Seen 09/07/2021 [facility] /HPF 10:03 PM LABORATORY LINK TRAINER MAINTENANCE MAN Crystals, Present (A) None Seen 09/07/2021 [facility] Calcium 10:03 PM LABORATORY Oxalate LINK TRAINER MAINTENANCE MAN Urine Source Clean Catch 09/07/2021 [facility] 10:03 PM LABORATORY LINK TRAINER MAINTENANCE MAN Specimen Anatomical Collection Method Collection Time Receive d Time (Source) Location / / Volume Laterality Urine URINE SPECIMEN Non-blood 09/07/2021 6:15 AM 021 8:22 COLLECTION, CLEAN Collection / LINK TRAINER MAINTENANCE MAN PM LINK TRAINER MAINTENANCE MAN CATCH / Unknown Unknown Narrative [facility] - 09/07/2021 10:03 PM LINK TRAINER MAINTENANCE MAN Ascorbic acid detected in this urine mariposa ple, which may interfere with Glucose, Blood and Nitrite measurements. Jasper Larsen MD LAB_1 Performing Organization Address City/State/ZIP Code Phon e Number [facility] [address] [place] [address] Trichomonas vaginalis by Qual TMA (09/07/2021 6:15 AM LINK TRAINER MAINTENANCE MAN) [facility] Method Time Signature T. vaginalis Negative Negative 09/10/2021 [facility] by TMA 3:38 PM LINK TRAINER MAINTENANCE MAN LABORATORIES Comment: This test was developed and its performa nce characteristics determined by [facility]. It has not been cleared or approved by the U.S. Food and Drug Admin istration. This test was performed in a CLIA-certified laboratory and is intended for clinical purposes. Interpretive Information: Trichomonas va ginalis by TMA A negative result does not completely ru le out infection with T. vaginalis. Results should be interpreted in conjunc tion with other clinical data. This test has not been validated f or use with self-collected vaginal swab specimens from patients. This test is intended for medical purpos es only and is not valid for the evaluation of suspected sexual a buse or for other forensic purposes. Performed By: [facility] [address] [place] [id number] Fire Crew Worker: Litzy Mcrae MD [facility] Media Type Urine 09/10/2021 3:38 PM LINK TRAINER MAINTENANCE MAN [facility] Specimen Source Urine 09/10/2021 3:38 PM LINK TRAINER MAINTENANCE MAN [facility] Specimen Anatomical Collection Method Collection Time Receive d Time (Source) Location / / Volume Laterality Urine Non-blood 09/07/2021 6:15 AM 1 8:23 Collection / LINK TRAINER MAINTENANCE MAN PM LINK TRAINER MAINTENANCE MAN Unknown Jasper Larsen MD LAB_1 Performing Organization Address City/State/ZIP Code Phon e Number [address] [id number] Chlamydia & GC, Urine (14 Years and Older) (09/07/2021 6:15 AM LINK TRAINER MAINTENANCE MAN) [facility] Method Time Signature Chlamydia Not Not 09/08/2021 [facility] Trachomatis Detected Detected 1:30 PM LINK TRAINER MAINTENANCE MAN CEN[facility]AL [facility] STD N. gonorrhoeae Not Not 09/08/2021 [facility] STD Detected Detected 1:30 PM LINK TRAINER MAINTENANCE MAN CENTRAL LAB Specimen Anatomical Collection Method Collection Time Receive d Time (Source) Location / / Volume Laterality Urine STD Non-blood 09/07/2021 6:15 AM 1 8:34 Collection / LINK TRAINER MAINTENANCE MAN PM LINK TRAINER MAINTENANCE MAN Unknown Narrative [facility] - 09/08/2021 1:30 PM LINK TRAINER MAINTENANCE MAN Test performed by [employer] Mediated Amplification (TMA). Urine Volume submitted was greater than 30 ml. Excess collection volume may decrease test sensitivity. Jasper Larsen MD LAB_1 Performing Organization Address City/State/ZIP Code Phon e Number [facility] [address] [place] [phone] documented in this encounter Visit Diagnoses Diagnosis Encounter for screening for infections w ith a predominantly sexual mode of transmission Unspecified abnormal findings in urine documented in this encounter Care Teams Ui Engineer Relationship Specialty Start Date End Date Ernesto Castellano PA-C PCP - General Physician Pickle Maker 05/30/19 [address] [place] [address] documented as of this encounter
--- OUTSIDE RECORDS SUMMARY | 2022-07-08 11:02 | XMS_ITS | Clinical Summary ---
:1990 Author Organization [facility] Address [address] [address] Care Team Providers Name Role Phone Ernesto Castellano PA-C Primary Care Provider Source Comments You are receiving this document as you are listed as the primary care provider,follow-up provider, or the patient has been referred to you for consultation.This is in compliance with the Medicare and Medicaid EHR Incentive Program,which states Providers who transition their patient to another setting of careor provider of care or refers their patient to another provider of care shouldprovide summarycare record for each transition of care or referral. [employer] Allergies Active Allergy Reactions Severity Noted Date Comments Rison Anaphylaxis High 09/12/2016 Other reaction( s): Bleeding Bleeding from l esions in mouth Kiwi Extract Anaphylaxis High 09/12/2016 Other reaction( s): Bleeding Bleeding from l esion formations in m outh Latex Rash Low 04/20/2006 rash from glove s Shellfish-Derived Products High 09/13/2016 O ther reaction(s): Throat Swelling/Closin g Medications Medication Sig Dispensed Refills Start Date End Date Status busPIRone (BUSPAR) 15 Take 1 Tablet by 180 Tablet 3 04/02/2019 Active MG tabletIndications: mouth two times Anxiety (HRC) a day. valACYclovir (VALTREX) Take 1 Tablet by 60 Tablet 11 04/02/2019 Active 1 g tabletIndications: mouth two times Genital herpes simplex, a day. unspecified site (HRC) buPROPion (WELLBUTRIN Take 1 Tablet by 90 Tablet 3 05/31/2019 Active XL) 150 MG 24 hour mouth daily. release tabletIndications: Anxiety (HRC), Persistent depressive disorder (HRC) glycopyrrolate Take 1 Tablet by 180 Tablet 2 06/17/2019 Active (ROBINUL) 2 MG mouth two times tabletIndications: a day. Bromhidrosis escitalopram oxalate Take 1 Tablet by 30 Tablet 1 08/09/2019 Active (LEXAPRO) 20 MG mouth daily. tabletIndications: Anxiety (HRC) amphetamine-dextroamphe Take 1 Capsule 30 Capsule 0 09/13/2019 Active tamine (ADDERALL XR) 25 by mouth daily MG 24 hour release for 30 days. 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 Currently abusing benzodiazepines. Chronic post-traumatic stress disorder (PTSD) 09/13/20 16 Immunizations Name Administration Dates Next Due 4vHPV (Gardasil) 12/31/2008, 09/05/2007, 07/07/2007 HepA Adult (19+ yrs) 01/02/2010, 12/31/2008 HepB Ped/Adol (0-18 yrs) 04/29/1997, 11/26/1996, 10/29/1996 Family History Medical History Relation Name Comments High Cholesterol Father Hypertension Father Diabetes Mother Relation Name Status Comments Father Alive Mother Alive Social History Tobacco Use Types Packs/Day Years Used Date Smoking Tobacco: Every Day Cigarettes 0.3 Smokeless Tobacco: Never Comments: working on quitting Alcohol Use Standard Drinks/Week Comments Not Currently 0 (1 standard drink = 0.6 oz pure alcoho l) sober [id number] Alcohol Habits Answer Date Recorded How often [...] Comments Blood Pressure 106/74 08/09/2019 1:03 PM GLAZIER APPRENTICE Pulse 77 08/09/2019 1:03 PM GLAZIER APPRENTICE Temperature 37.2 ??C (99 ??F) 05/31/2019 8:05 AM CDT Respiratory Rate 16 08/09/2019 1:03 PM GLAZIER APPRENTICE Oxygen Saturation - - Inhaled Oxygen Concentration - - Weight 67.1 kg (148 lb) 08/09/2019 1:03 PM GLAZIER APPRENTICE Height 167 cm (5' 5.75) 08/09/2019 1:03 PM GLAZIER APPRENTICE Body Mass Index 24.07 08/09/2019 1:03 PM GLAZIER APPRENTICE Plan of Treatment Health Maintenance Due Date Last Done Comments COVID-19 Vaccine (#1) 1988 Pneumococcal (1 - PCV) 1994 HIV Screening (Preventive 2004 Services) DTaP/Tdap/Td (1 - Tdap) 2007 Adult Preventive Visit 02/08/2021 02/08/2019 Pap 12/18/2021 12/18/2018 (Completed), 06/21/2012 Influenza (#1) 2022 05/24/2018, 05/24/2018, 07/20/2017 Zoster/Shingles (1 of 2) 2038 HepB Completed 04/29/1997, 11/26/1996, 10/29/1996 HPV Vaccine Completed 12/31/2008, 09/05/2007, 07/07/2007 HepA Aged Out 01/02/2010, No longer eligib le based 12/31/2008 on patient's age to complete this to pic Hep C Screening (Preventive Completed 09/11/2021 Services) Hib Aged Out No longer eligib le based on patient's age to complete this to pic IPV (Polio) Aged Out No longer eligib le based on patient's age to complete this to pic MCV4 Aged Out No longer eligib le based on patient's age to complete this to pic Care Teams Mountain Guide Relationship Specialty Start Date End Date Ernesto Castellano PA-C PCP - General Physician Kettle Worker 05/30/19 [address] [place] [address]
--- OUTSIDE RECORDS SUMMARY | 2022-07-08 11:02 | XMS_ITS | Encounter Summary ---
:1990 Author Organization [facility] Address [address] [place] [address] Care Team Providers Name Role Phone Ernesto Castellano PA-C Primary Care Provider Reason for Visit Reason Comments Medication Questions Encounter Details Date Type Department Care Team Description 05/15/2020 Telephone [place] [address] Family Lewis Jarvis MD Medication Questions [facility] [address] [facility] [address] [place] [address] [place], [place] [phone] (Wo rk) [address] [phone] Social History Tobacco Use Types Packs/Day Years Used Date Smoking Tobacco: Every Day Cigarettes 0.3 Smokeless Tobacco: Never Comments: working on quitting Alcohol Use Standard Drinks/Week Comments Not Currently 0 (1 standard drink = 0.6 oz pure alcoho l) sober [id number] Alcohol Habits Answer Date Recorded How often [...] documented as of this encounter Nursing Notes Trey Jarvis MD - 05/15/2020 11:24 AM CDT I called and talked with Erika. Confirmed that I am no longer prescribing ativan for her and that any benzo rx's should go through mental health. Verbal report given, nothing further needs to be done. Leigha Chao RN - 05/15/2020 10:50 AM CDT Clinician Action: Medication question Clinician Next Step: Route to [facility] Nurse pool to follow up Specific Request(s): 1. Erika, nurse from Treatment Center calling to verify that PCP did prescribe Ativan on 03/28/20. She states they got a call back from PCP office on 05/[address] Jarvis didn't prescribe any of her mental health medications, however per RECOVERY AGENT, Dr. Jarvis did send rx for Ativan on 03/28/20. She would like Dr. Jarvis to be aware of this since they were told by clinic that he didn't prescribe any. She is requesting a copy of medication list to be faxed to them at [phone], needs to be signed by Dr. Jarvis. David Matthews - 05/15/2020 10:14 AM CDT Medications - Med Change / Question Is this a medication change or a general question? Med Question What is your question or concern? Nurse from treatment center calling for clarification on med. Was advised that provider did not prescribe it but shows that he did on 03/28/2020 What is the name and dose of the medication? LORazepam (ATIVAN) 1 MG tablet How often do you take it? Sig: ?TAKE 1 TABLET BY MOUTH TWICE DAILY NEEDED FOR ANXIETY Who prescribed it? Trey Jravis MD If a prescription is needed, patient would like it filled at the pharmacy listed in Meds & Orders. (Verify the pharmacy patient would like to use for this request is highlighted in blue in PharmacySelection under Meds & Orders) Is it okay to leave a detailed message on your voicemail? No (Advise caller that the PN call back number will end with [phone] or unknown) Please route to: Triage Pool documented in this encounter Plan of Treatment Not on filedocumented as of this encounter Visit Diagnoses Not on filedocumented in this encounter Care Teams Community Health Advisor Relationship Specialty Start Date End Date Gray, Ernesto J, PA-C PCP - General Physician Executive Consultant 05/30/19 [address] [place] [address] documented as of this encounter
--- OUTSIDE RECORDS SUMMARY | 2022-07-08 11:02 | XMS_ITS | Encounter Summary ---
:1990 Author Organization [facility] Address [address] [place] [address] Care Team Providers Name Role Phone Ernesto Castellano PA-C Primary Care Provider Reason for Visit Reason Comments Refill OUT of Lorazepam, (transferr ing to Triage per pt's request) Encounter Details Date Type Department Care Team Description 08/10/2019 Refill [facility] Ernesto Castellano, Refill (OUT of Medicine [facility] Lorazepam, (transferring [address] [address] [facility] to Triage per pt's [place], [place] [address] request)) [address] [phone] Social History Tobacco Use Types Packs/Day Years Used Date Smoking Tobacco: Every Day Cigarettes 0.3 Smokeless Tobacco: Never Comments: working on quitting Alcohol Use Standard Drinks/Week Comments Not Currently 0 (1 standard drink = 0.6 oz pure alcoho l) sober [id number] Alcohol Habits Answer Date Recorded How often [...] encounter Nursing Notes Loretta Ching LPN - 08/13/2019 9:12 AM CST Called and left pt a message with the information below. Ernesto Culp PA-C - 08/10/2019 4:56 PM CST I sent Lorazepam prescription to pharmacy Jennifer Driscoll RN - 08/10/2019 4:31 PM CST Patient calling back, was seen yesterday in clinic for anxiety f/u and completely forgot to ask for refill of Ativan. She is out at this time and concerned about going the weekend without. Calling to see if PCP received the request. Rx is pended for review. Maureen Amaya RN - 08/10/2019 4:25 PM CST Further Assistance Needed on Refill from Clinician RN reviewed. Signed order needed. Medication not on RN refill list Pt last seen in clinic on 08/09/19. Medication last refilled on 07/12/19 for #60 with no refills. Review pended order for accuracy and sign if appropriate and Patient is expecting call back Requested Prescriptions Pending Prescriptions Disp Refills ??? LORazepam (ATIVAN) 1 MG tablet 60 Tablet 0 Simg twice daily as needed for anxiety Problem list reviewed as related to this call. Marija Mares - 08/10/2019 4:17 PM CST Medications - Refill Request (able to re-order) Name of prescribing clinician: PATRICK Vega Additional comments (related to the above concern): OUT of med now- patient is concerned because it is late Tuesday afternoon - she is requesting to speak with a nurse For this refill, patient would like it filled at the pharmacy listed in Meds & Orders. (Verify the pharmacy patient would like to use for this request is highlighted in blue in Pharmacy Selection under Meds & Orders)- the pharmacy was verified today If there are questions regarding your request, is it okay to leave a detailed message on your voicemail? Yes (Advise caller that the PN call back number will end with [phone] or unknown) (Advise caller of turn around time is 2 business days for standard refills and 2 to 5 business days for controlled refills) MACY TECH documented in this encounter Plan of Treatment Not on filedocumented as of this encounter Visit Diagnoses Diagnosis Anxiety Anxiety state, unspecified documented in this encounter Care Teams Tallow Maker Relationship Specialty Start Date End Date Ernesto Castellano PA-C PCP - General Physician Piece Goods Clerk 05/30/19 [address] [place] [address] documented as of this encounter
--- OUTSIDE RECORDS SUMMARY | 2022-07-08 11:02 | XMS_ITS | Encounter Summary ---
:1990 Author Organization [facility] Address [address] [address] Care Team Providers Name Role Phone Ernesto Castellano PA-C Primary Care Provider Reason for Visit Reason Comments Refill LORazepam (ATIVAN) 1 MG tabl et; amphetamine-dextroamphetamine (ADDERALL XR) 25 MG 24 hour release capsule Encounter Details Date Type Department Care Team Description 09/11/2019 Refill [facility] Ernesto Castellano, Refill (LORazepam Medicine HARSH (ATIVAN) 1 MG tablet; [address] [address] [facility] amphetamine-dextroamphet [place], [place] [address] amine (ADDERALL XR) 25 [address] MG 24 hour release [phone] capsule) Social History Tobacco Use Types Packs/Day Years Used Date Smoking Tobacco: Every Day Cigarettes 0.3 Smokeless Tobacco: Never Comments: working on quitting Alcohol Use Standard Drinks/Week Comments Not Currently 0 (1 standard drink = 0.6 oz pure alcoho l) sober [id number] Alcohol Habits Answer Date Recorded How often [...] documented as of this encounter Nursing Notes Interface, Out Surescripts Prov Query - 09/11/2019 12:42 PM CST LORazepam (ATIVAN) 1 MG tablet Medication started: 02/08/2019 Last ordered by ERNESTO CASTELLANO: 08/10/2019 (32 days ago) QTY: 60, Refills: 0, Simg twice daily as needed for anxiety (unchanged) -> Medication cannot be delegated. Last qualifying visit: 08/09/2019 (with ERNESTO CASTELLANO) Next scheduled visit: None Powered by [employer], Reference: [id number], 09/11/2019 12:42:44 PM Jean ROGERS: RAFAEL REFILL WIZARD ADMIN ([id number]) amphetamine-dextroamphetamine (ADDERALL XR) 25 MG 24 hour release capsule Medication started: 03/06/2019 Last ordered by ERNESTO CASTELLANO: 08/09/2019 (33 days ago) QTY: 30, Refills: 0, Sig: take 1 capsule by mouth daily for 30 days. (unchanged) -> The most recent order on 09/08/2019. -> Medication cannot be delegated. Last qualifying visit: 08/09/2019 (with ERNESTO CASTELLANO) Next scheduled visit: None Powered by [employer], Reference: [id number], 09/11/2019 12:42:44 PM Jena ROGERS: RAFAEL REFILL WIZARD ADMIN ([id number]) OPERATOR Interface, Out I Am [employer]vertising Prov Query - 09/11/2019 12:42 PM CST No Careplan note found by [employer]. OPERATOR Astrid Moise - 09/11/2019 12:42 PM CST Medications - Refill Request (able to re-order) Name of prescribing clinician: Ernesto Castellano PA-C Additional comments (related to the above concern): For this refill, patient would like it filled at the pharmacy listed in Meds & Orders. (Verify the pharmacy patient would like to use for this request is highlighted in blue in Pharmacy Selection under Meds & Orders) If there are questions regarding your request, is it okay to leave a detailed message on your voicemail? Yes (Advise caller that the PN call back number will end with [phone] or unknown) (Advise caller of turn around time is 2 business days for standard refills and 2 to 5 business days for controlled refills) Please route to: Refill Pool (P [id number]) [place] [facility] [place] Patients ONLY (P [phone]) [facility] Arredondo ONLY (P [phone]) OPERATOR documented in this encounter Plan of Treatment Not on filedocumented as of this encounter Visit Diagnoses Diagnosis Anxiety Anxiety state, unspecified Attention deficit hyperactivity disorder (ADHD), predominantly inattentive type (HRC) documented in this encounter Care Teams Crisis Nurse Relationship Specialty Start Date End Date Ernesto Castellano PA-C PCP - General Physician Plate And Weld Inspector 05/30/19 [address] [place] [address] documented as of this encounter
--- OUTSIDE RECORDS SUMMARY | 2022-07-08 11:02 | XMS_ITS | Encounter Summary ---
:1990 Author Organization [facility] Address [address] [place] [address] Care Team Providers Name Role Phone Ernesto Mccollum PA-C Primary Care Provider Reason for Visit Reason Comments Refill QUEtiapine (SEROQUEL) 25 MG tablet [Pharmacy Med Name: QUETIAPINE 25MG TABLETS] Encounter Details Date Type Department Care Team Description 11/02/2019 Refill [facility] Ernesto Mccollum, Refill (QUEtiapine Medicine HARSH (SEROQUEL) 25 MG tablet [address] [address] [facility] [Pharmacy Med Name: [place], [place] [address] QUETIAPINE 25MG [id number] TABLETS]) [phone] Social History Tobacco Use Types Packs/Day Years Used Date Smoking Tobacco: Every Day Cigarettes 0.3 Smokeless Tobacco: Never Comments: working on quitting Alcohol Use Standard Drinks/Week Comments Not Currently 0 (1 standard drink = 0.6 oz pure alcoho l) sober [id number] Alcohol Habits Answer Date Recorded How often [...] documented as of this encounter Nursing Notes Ernesto Mccollum PA-C - 11/02/2019 8:38 AM CST Seroquel refill sent ICAL SUPPORT SPECIALIST Interface, Out [employer] Prov Query - 11/02/2019 8:03 AM CST QUEtiapine (SEROQUEL) 25 MG tablet [Pharmacy Med Name: QUETIAPINE 25MG TABLETS] Medication started: 04/02/2019 Last ordered by ERNESTO MCCOLLUM: 07/12/2019 (113 days ago) QTY: 30, Refills: 3, Sig: take 1 tablet by mouth daily at bedtime. (unchanged) -> Medication cannot be delegated. Last qualifying visit: 08/09/2019 (with ERNESTO MCCOLLUM) Next scheduled visit: None Powered by [employer], Reference: [id number], 11/02/2019 8:03:28 AM CLINICAL SUPPORT SPECIALIST, Jean: FARZANA REFILL ([id number]) ICAL SUPPORT SPECIALIST documented in this encounter Plan of Treatment Not on filedocumented as of this encounter Visit Diagnoses Diagnosis Persistent depressive disorder Chronic insomnia Insomnia, unspecified documented in this encounter Care Teams Organ Recovery Coordinator Relationship Specialty Start Date End Date Ernesto Mccollum PA-C PCP - General Physician Hydropress Operator 05/30/19 [address] [place] [address] documented as of this encounter
--- OUTSIDE RECORDS SUMMARY | 2022-07-08 11:02 | XMS_ITS | Encounter Summary ---
:1990 Author Organization [employer] [facility] Address [address] [place] [address] Care Team Providers Name Role Phone Ernesto Mccollum PA-C Primary Care Provider Reason for Visit Reason Onset Date Comments Refill Refill 09/11/2019 Encounter Details Date Type Department Care Team Description 09/08/2019 Refill [facility] Ernesto Mccollum PA-C Refill; Refill [address] [facility]. [address] [place] [address] [place], [place] [id number] (Wo rk) Social History Tobacco Use Types Packs/Day Years Used Date Smoking Tobacco: Every Day Cigarettes 0.3 Smokeless Tobacco: Never Comments: working on quitting Alcohol Use Standard Drinks/Week Comments Not Currently 0 (1 standard drink = 0.6 oz pure alcoho l) sober [id number] Alcohol Habits Answer Date Recorded How often [...] encounter Nursing Notes Ernesto Mccollum PA-C - 09/10/2019 7:17 AM CST Patient was switched back to Adderall at last visit. GER NICU Interface, Out Surescripts Prov Query - 09/08/2019 4:07 AM CST atomoxetine (STRATTERA) 60 MG capsule [Pharmacy Med Name: ATOMOXETINE 60MG CAPSULES] Medication started: 07/12/2019 Last ordered by ERNESTO MCCOLLUM: 07/12/2019 (58 days ago) QTY: 30, Refills: 1, Sig: take 1 capsule by mouth daily. (unchanged) -> This medication was discontinued on 08/09/2019 by ERNESTO MCCOLLUM. -> Medication cannot be delegated. Last qualifying visit: 08/09/2019 (with ERNESTO MCCOLLUM) Next scheduled visit: None Powered by [employer], Reference: [id number], 09/08/2019 4:07:51 AM KEN, Jean: FARZANA REFILL ([id number]) GER NICU documented in this encounter Plan of Treatment Not on filedocumented as of this encounter Visit Diagnoses Diagnosis Attention deficit hyperactivity disorder (ADHD), predominantly inattentive type documented in this encounter Care Teams Inspector Final Assembly Mechanical Relationship Specialty Start Date End Date Ernesto Mccollum PA-C PCP - General Physician Laundromat Worker 05/30/19 [address] [place] [address] documented as of this encounter
--- OUTSIDE RECORDS SUMMARY | 2022-07-08 11:03 | XMS_ITS | Encounter Summary ---
:1990 Author Organization [facility] Address [address] [address] Care Team Providers Name Role Phone Md KALEB Collazo Primary Care Provider Encounter Details Date Type Department Care Team Description 06/21/2012 Orders Only HP Claims MD Kendra Security Contact Bill [address] [place] [address] Mailstop [id number] [phone] (Wo rk) Social History Tobacco Use Types Packs/Day Years Used Date Smoking Tobacco: Never Assessed Alcohol Habits Answer Date Recorded How often [...] on filedocumented in this encounter Care Teams Small Animal Caretaker Relationship Specialty Start Date End Date Md Collazo MD PCP - General 07/26/12 02/05/19 [place], [place] [address] documented as of this encounter
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
--- OUTSIDE RECORDS SUMMARY | 2022-07-08 11:03 | XMS_ITS | Encounter Summary ---
:1990 Author [facility] Address [address] [place] [address] Care Team Providers Name Role Phone Chacha Bridges MD Primary Care Provider Reason for Visit Reason Onset Date Comments Refill 03/29/2019 LORazepam (ATIVAN) 1 MG tablet Encounter Details Date Type Department Care Team Description 03/29/2019 Refill [facility] Ernesto Castellano, Refill (LORazepam Medicine PA-C (ATIVAN) 1 MG tablet) [address] [address] [place], [place] [id number] [phone] Social History Tobacco Use Types Packs/Day Years Used Date Smoking Tobacco: Every Day Cigarettes 0.3 Smokeless Tobacco: Never Comments: working on quitting Alcohol Use Standard Drinks/Week Comments Not Currently 0 (1 standard drink = 0.6 oz pure alcoho l) sober [id number] Alcohol Habits Answer Date Recorded How often [...] documented as of this encounter Nursing Notes Gisela Turner RN - 03/30/2019 3:08 PM CDT DOES NOT MEET REQUIREMENTS FOR REFILL Requested medication not on approved RN Rx refill list. Last refilled 03/01/19 #60 Refills:0 Last seen by PCP: 03/01/19 Seen by Yin Perez 03/06 Appointment scheduled: No Deb Cali - 03/30/2019 2:43 PM CDT Pt is calling to check the status of the medication. She has an appt scheduled 04/02/19 with PCP dwight says she will be out of the medication tomorrow and would really like to pick it up today. Interface, Out SurescriWolonge Prov Query - 03/29/2019 11:20 AM CDT LORazepam (ATIVAN) 1 MG tablet Medication started: 02/08/2019 Last ordered by ERNESTO CASTELLANO: 03/01/2019 (28 days ago) QTY: 60, Refills: 0, Simg twice daily as needed for anxiety (unchanged) -> Medication cannot be delegated. Last qualifying visit: 03/01/2019 (with ERNESTO CASTELLANO) (A more recent visit (in Family Practice) was found) Next scheduled visit: 04/02/2019 (in Family Practice) Powered by [employer], Reference: [id number], 03/29/2019 11:20:44 AM CDT, Pool: PN REFILL WIZARD ADMIN ([id number]) Interface, Out Surescripts Prov Query - 03/29/2019 11:20 AM CDT No Careplan note found by [employer]. Keanu Zelaya - 03/29/2019 11:19 AM CDT Medications - Refill Request (able to re-order) Name of prescribing clinician: Avel Castellano Additional comments (related to the above concern): For this refill, patient would like it filled at the pharmacy listed in Meds & Orders. (Verify the pharmacy patient would like to use for this request is highlighted in blue in Pharmacy Selection under Meds & Orders) If there are questions regarding your request, is it okay to leave a detailed message on your voicemail? (Advise caller that the PN call back number will end with [phone] or unknown) (Advise caller of turn around time is 2 business days for standard refills and 2 to 5 business days for controlled refills) Please route to: Refill Pool (P [id number]) [facility] [place] Patients ONLY (P [phone]) [facility] Arredondo ONLY (P [phone]) documented in this encounter Plan of Treatment Not on filedocumented as of this encounter Visit Diagnoses Diagnosis Anxiety (HRC) Anxiety state, unspecified documented in this encounter Care Teams Pinion Polisher Relationship Specialty Start Date End Date Chacha Bridges MD PCP - General Internal Medicine 02/06/19 05/29/19 [id number] [place] [address] documented as of this encounter
--- OUTSIDE RECORDS SUMMARY | 2022-07-08 11:03 | XMS_ITS | Encounter Summary ---
:1990 Author Organization [facility] Address [address], [place] [address] Care Team Providers Name Role Phone Unavailable Primary Care Provider Unavailable Encounter Details Date Type Department Care Team Description 09/02/2006 Traveling Engineer Only CONVERSION CONVERSION Scooby Burgos Social History Tobacco Use Types Packs/Day Years [...] documented as of this encounter Progress Notes Scooby Burgos - 09/02/2006 12:01 AM CST Progress Notes signed by Scooby Burgos MD at 09/05/06 0817 Author: Scooby Burgos MD Service: (none) Author Type: Physician Filed: 01/08/11 1613 Note Time: 09/02/06 0001 Status: Signed Specialties Operator: Scooby Burgos MD (Physician) Pt did not show for f/u appointment today. Will send letter. Waive fee. OLOGIC TECHNOLOGIST MAMMOGRAM documented in this encounter Plan of Treatment Not on filedocumented as of this encounter Visit Diagnoses Not on filedocumented in this encounter
--- OUTSIDE RECORDS SUMMARY | 2022-07-08 11:03 | XMS_ITS | Encounter Summary ---
:1990 Author Organization [facility] Address [address] [place] [address] Care Team Providers Name Role Phone Ernesto Castellano PA-C Primary Care Provider Reason for Visit Reason Comments MEDICATION CHECK Encounter Details Date Type Department Care Team Description 07/12/2019 Office Visit [facility] Ernesto Castellano, Anxiety (Primary Dx); Medicine [facility] Attention deficit hyperactivity disorder (ADHD), predominantly inattentive type; [address]. [address] [facility] Chronic pain syndrome; [place], [place] Persistent de pressive disorder; [id number] Chronic insomnia [phone] Social History Tobacco Use Types Packs/Day Years Used Date Smoking Tobacco: Every Day Cigarettes 0.3 Smokeless Tobacco: Never Comments: working on quitting Alcohol Use Standard Drinks/Week Comments Not Currently 0 (1 standard drink = 0.6 oz pure alcoho l) sober [id number] Alcohol Habits Answer Date Recorded How often [...] Sign Reading Time Taken Comments Blood Pressure 104/86 07/12/2019 11:55 AM CDT Pulse 96 07/12/2019 11:55 AM CDT Temperature - - Respiratory Rate 16 07/12/2019 11:55 AM CDT Oxygen Saturation - - Inhaled Oxygen Concentration - - Weight 67.1 kg (148 lb) 07/12/2019 11:55 AM CDT Height 167 cm (5' 5.75) 07/12/2019 11:55 AM CDT Body Mass Index 24.07 07/12/2019 11:55 AM CDT documented in this encounter Patient Instructions Patient InstructionsErnesto Castellano PA-C - 07/12/2019 11:40 AM CDT Plan: 1). Will continue current regimen of Wellbutrin 150mg daily. Lorazepam #60 refilled to use twice daily as needed but will try to start weaning dose over the next couple of months once weaning off Methadone. 2). For Buspar, can try increasing to 30mg (2 tabs) twice daily. If not helping with anxiety then can probably stop and may consider adding different medication such as Lexapro or similar. 3). For ADHD: Will try switching Adderall to Staterra 60mg daily. 4). Continue working with pain management clinic for weaning Methadone. 5). Follow up with acute worsening of symptoms or any other concerns. documented in this encounter Progress Notes Ernesto Castellano PA-C - 07/12/2019 11:40 AM CDT Chief Complaint Patient presents with ??? MEDICATION CHECK History of Present Illness: Jolynn Mcdonald is a 29 y.o. female who presents for follow up for medication check for multiple medications. Patient has to undergo regular drug screens testing (+) recently for Methadone, Benzodiazepines, amphetamines and methamphetamines. She has the following issues: 1). Chronic pain: Is taking Methadone that is managed through outside pain management clinic. She has been trying to wean down on dose however had not been very aggressive until more recently now [id number] dose. 2). Anxiety/Depression: Had been doing better on regimen of Wellbutrin 150mg XL, and Buspar 15mg twice daily although is not sure if the Buspar is really helping much anymore. She wanted to possibly increase dose. In addition has been using Lorazepam 1mg twice daily, again with intent to wean off medication as much as possible however trying to get off Methadone first. 3). Insomnia: Was on a higher dose of Seroquel but admits is only using 50mg at night and would liketo try lower dose as she feels very sedated at higher doses. 4). ADHD: Currently using Adderall 25mg XR daily. She is wanting to possibly try non-stimulant medication such as Straterra as a way to manage focus/concentration instead of taking Adderall. NOTE: (+) drug screens ultimately related to medications she was taking as prescribed. [place] ORTHOPEDIC DESIGNER does not reveal any obvious concerning prescription issues. Review of Systems: Constitutional: No fevers, chills, fatigue CHEST: No cough or breathing difficulty HEART: No chest pain, no edema. ABD: No abdominal pain, nausea, vomiting or diarrhea. M/S: No back pain, joint pain or swelling, no muscle pain. NEURO: No headaches, dizziness, weakness SKIN: No rashes or itching, no worrisome skin lesions. PSYCH: Positive for anxiety, depression, some sleep difficulties and concentration difficulties. No suicidal thoughts. Past Medical History: Reviewed and updated in medical record at visit Past Surgical History: Reviewed and updated in medical record at visit Family History: Reviewed and updated in medical record at visit Medications: Reviewed and reconciled in medical record at visit. Allergies: Reviewed and updated in medical record at visit. Physical Exam: Vitals: 07/12/19 1155 BP: 104/86 Pulse: 96 Resp: 16 GEN: Alert, oriented, well nourished/hydrated in NAD EYES: PEERL, EOMI CHEST: Normal effort, CTA. HEART: RRR, No audible murmur, rub or gallop. SKIN: Warm and dry without rash M/S: No joint swelling or redness. NEURO: CN 2-12 intact, non-focal exam PSYCH: Alert & oriented. Somewhat flat affect. Normal speech pattern, normal interaction. Insight good. PHQ-9: 12, (See medical record for details). Diagnosis: Encounter Diagnoses Name Primary? Anxiety Yes ??? Attention deficit hyperactivity disorder (ADHD), predominantly inattentive type ??? Chronic pain syndrome ??? Persistent depressive disorder ??? Chronic insomnia Plan: 1). Will continue current regimen of Wellbutrin 150mg daily. Lorazepam #60 refilled to use twice daily as needed but will try to start weaning dose over the next couple of months once weaning off Methadone. 2). For Buspar, can try increasing to 30mg (2 tabs) twice daily. If not helping with anxiety then can probably stop and may consider adding different medication such as Lexapro or similar. 3). For ADHD: Will try switching Adderall to Staterra 60mg daily. 4). Continue working with pain management clinic for weaning Methadone. 5). Follow up with acute worsening of symptoms or any other concerns. Total time of visit: 25 minutes, 20 minutes spent in counseling. documented in this encounter Plan of Treatment Not on filedocumented as of this encounter Visit Diagnoses Diagnosis Anxiety - Primary Anxiety state, unspecified Attention deficit hyperactivity disorder (ADHD), predominantly inattentive type Chronic pain syndrome Persistent depressive disorder Chronic insomnia Insomnia, unspecified documented in this encounter Care Teams Floor Scrubber Relationship Specialty Start Date End Date Ernesto Castellano PA-C PCP - General Physician Interchange Agent 05/30/19 [address] [place] [address] documented as of this encounter
--- OUTSIDE RECORDS SUMMARY | 2022-07-08 11:03 | XMS_ITS | Encounter Summary ---
:1990 Author Organization [facility] Address [address] [place] [address] Care Team Providers Name Role Phone Ernesto Castellano PA-C Primary Care Provider Reason for Visit Reason Comments Medication Request Encounter Details Date Type Department Care Team Description 06/26/2019 Telephone [facility] Ernesto Castellano PA-C Medication Request Medicine [id number] [facility] [address] [place] [address] [place] [address] [phone] Social History Tobacco Use Types Packs/Day Years Used Date Smoking Tobacco: Every Day Cigarettes 0.3 Smokeless Tobacco: Never Comments: working on quitting Alcohol Use Standard Drinks/Week Comments Not Currently 0 (1 standard drink = 0.6 oz pure alcoho l) sober [id number] Alcohol Habits Answer Date Recorded How often [...] documented as of this encounter Nursing Notes Amparo Nieves RN - 06/26/2019 2:57 PM CDT Called Mom and gave her message below. Aryan Boo MD - 06/26/2019 2:16 PM CDT This is not something I am willing to prescribe to a patient I have never seen or given care to. I see no prescriptions for this in our system or any records of where this is prescribed. This needs to be managed by the fpc physicians. If she needs to be transferred to [place] in order to receive adequate treatment of her withdrawal or management of her methadone, then that needs to be the course ofaction, but I will not be prescribing this. Amparo Nieves RN - 06/26/2019 2:02 PM CDT Called Mom and gave message from Danny Perez. Will send to MD now. Callback Mom. Mely Perez PA-C - 06/26/2019 12:49 PM CDT I'm sorry but I've never prescribed this in my life and I don't think I can. Maybe route to MD? Or they will need to go to ER. Mely Galindo Amparo Nieves RN - 06/26/2019 11:55 AM CDT Clinician Action: New Order Medication--methadone Clinician Next Step: Patient IS expecting a call back from care team Specific Request(s): Mom of 29 yr old woman is calling to request 3 days of methadone for pt who is currently in [facility] fpc since last Tuesday. Has not had her methadone since then and is getting sick. She was told if she gets sicker, they would put her in main fpc at [place]. Pt was taking methadone 75 mg daily from [facility]--pt was driving there daily but on probation and not supposed to drive. Was going down 5 mg every couple weeks. Mom does not know if liquid or tabs but pt needs med before court on --needs 3 days worth. Meds need be brought to pt while in fpc. Presently has no meds. Please call 24 hour [facility] for details so correct meds can be ordered. [facility]: [phone]. Mom is at Martha (Mother) [phone] Please callback Mom Litzy Villalba - 06/26/2019 11:48 AM CDT Medications - New Medication What medication are you calling about (name or what do/did you take it for)? Methadone 75 MG tablets Why are you calling for this medication? Pt is in fpc at [facility] in [place], [facility] and will have to go to main [facility] if gets any sicker Have you taken this medication or type of medication before and if so, when was it last taken? Yes: everyday (If No, please help schedule an appointment) Additional comments (related to the above concern): Pt's mother calling to request 3 pills of the Methadone 75 MG tablets so pt can have some until her court date on 06/28 at 1 PM. Please advise. For this new medication, patient would like it filled at the pharmacy listed in Meds & Orders. (Verify the pharmacy patient would like to use for this request is highlighted in blue in Pharmacy Selection under Meds & Orders) Is it okay to leave a detailed message on your voicemail? Yes (Advise caller that the PN call back number will end with [phone] or unknown) Please route to: Triage Pool documented in this encounter Plan of Treatment Not on filedocumented as of this encounter Visit Diagnoses Not on filedocumented in this encounter Care Teams Basic Acoustic Analyst Relationship Specialty Start Date End Date Ernesto Castellano PA-C PCP - General Physician Printed Circuit Photographer 05/30/19 [address] [place] [address] documented as of this encounter
--- OUTSIDE RECORDS SUMMARY | 2022-07-08 11:03 | XMS_ITS | Encounter Summary ---
:1990 Author Organization [facility] Address [address] [place] [address] Care Team Providers Name Role Phone Ernesto Castellano PA-C Primary Care Provider Reason for Visit Reason Comments Medication Change Encounter Details Date Type Department Care Team Description 07/06/2019 Telephone [facility] Ernesto Corona PA-C Medication Change [address] [facility]. [address] [place] [address] [place] [address] [phone] (Wo rk) Social History Tobacco Use Types Packs/Day Years Used Date Smoking Tobacco: Every Day Cigarettes 0.3 Smokeless Tobacco: Never Comments: working on quitting Alcohol Use Standard Drinks/Week Comments Not Currently 0 (1 standard drink = 0.6 oz pure alcoho l) sober [id number] Alcohol Habits Answer Date Recorded How often [...] documented as of this encounter Nursing Notes Amanda Keating LPN - 07/06/2019 2:37 PM CDT Weaning down to 5 mg per week. Patient goes to a Methadone Clinic for this medication. Ernesto Castellano PA-C - 07/06/2019 11:53 AM CDT Methadone can only be prescribed by certain providers. I am not licensed to prescribe Methadone. Theprescription needs to come from the original clinic that prescribed it. Sabrina Mejia RN - 07/06/2019 9:45 AM CDT Clinician Action: See telephone request Clinician Next Step: Patient IS expecting a call back from care team Specific Request(s): 1. Methadone is listed as historical. Please advise patient regarding request. Medications - Med Change / Question Is this a medication change or a general question? Med Change ?? What is the name and dose of the current medication? methadone (DOLOPHINE) 10 MG/ML solution ?? Do you know what medication/dosage you would like to change to? (If yes, what is the medication name/dosage?) Yes: Patient is taking the methadone, but went from 80 MG to 35 MG as needed ?? Why do you need to change medication/dosage? She wants to stop taking the methadone ?? How often do you take it? Take 80 mg by mouth every 4 hours as needed. Must be dispensed in original container (30ml) ?? Who prescribed it? Ernesto Castellano PA-C See ED Visit 06/20/19 See note from [facility] Visit Care Everywhere 01/31/19 Severe benzodiazepine use disorder 01/31/2019 Overview: ?? see hospitalization at [facility] 08/31/19 intubation for benzodiazepine withdrawl Tapered and done with taper in Oct she chose to [facility] 12[facility]2018 I would not recommend any controlled substances?? Methadone use 01/31/2019 Overview: ?? [facility] in [place]?? ADHAT Rocio Lebron - 07/06/2019 9:35 AM CDT Medications - Med Change / Question Is this a medication change or a general question? Med Change What is the name and dose of the current medication? methadone (DOLOPHINE) 10 MG/ML solution Do you know what medication/dosage you would like to change to? (If yes, what is the medication name/dosage?) Yes: Patient is taking the methadone, but went from 80 MG to 35 MG as needed Why do you need to change medication/dosage? She wants to stop taking the methadone How often do you take it? Take 80 mg by mouth every 4 hours as needed. Must be dispensed in original container (30ml) Who prescribed it? Ernesto Castellano PA-C Additional comments (related to the above concern): For this medication, patient would like it filled at [...] on filedocumented in this encounter Care Teams Occupational Health Coordinator Relationship Specialty Start Date End Date Ernesto Castellano PA-C PCP - General Physician Brick Catcher 05/30/19 [address] [place] [address] documented as of this encounter
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
--- OUTSIDE RECORDS SUMMARY | 2022-07-08 11:03 | XMS_ITS | Encounter Summary ---
:1990 Author Organization [facility] Address [address] [place] [address] Care Team Providers Name Role Phone Chacha Bridges MD Primary Care Provider Reason for Visit Reason Onset Date Comments Refill 04/27/2019 LORazepam (ATIVAN) 1 MG tablet Encounter Details Date Type Department Care Team Description 04/27/2019 Refill [facility] Chacha Bridges, Refil l (LORazepam Medicine (ATIVAN) 1 MG tablet) [address] [address] [place] [address] [phone] Social History Tobacco Use Types Packs/Day Years Used Date Smoking Tobacco: Every Day Cigarettes 0.3 Smokeless Tobacco: Never Comments: working on quitting Alcohol Use Standard Drinks/Week Comments Not Currently 0 (1 standard drink = 0.6 oz pure alcoho l) sober [id number] Alcohol Habits Answer Date Recorded How often [...] Notes Interface, Out [employer] Prov Query - 04/27/2019 2:49 PM CDT LORazepam (ATIVAN) 1 MG tablet Medication started: 02/08/2019 Last ordered by OLIVIA VASQUEZ (28 days ago) QTY: 60, Refills: 0, Simg twice daily as needed for anxiety (unchanged) -> Medication cannot be delegated. -> A qualifying visit was not found within the last 2 years. Last qualifying visit: None (A recent visit (in Family Practice) was found) Next scheduled visit: None Powered by [employer], Reference: [id number], 04/27/2019 2:49:20 PM CDT, Pool: PN REFILL WIZARD ADMIN ([id number]) Interface, Out [employer] Prov Query - 04/27/2019 2:49 PM CDT No Careplan note found by [employer]. Rudolph Durham - 04/27/2019 2:47 PM CDT Medications - Refill Request (able to re-order) Name of prescribing clinician: Chacha Bridges MD Additional comments (related to the above concern): Pt calling for a refill on LORazepam (ATIVAN) 1 MG tablet For this refill, patient would like it filled at the pharmacy listed in [facility] [employer]. (Verify the pharmacy patient would like to [...] refills) Please route to: Refill Pool (P [id number]) [facility] Pool Outing Patients ONLY (P [id number]) [facility] Arredondo ONLY (P [id number]) documented in this encounter Plan of Treatment Not on filedocumented as of this encounter Visit Diagnoses Diagnosis Anxiety Anxiety state, unspecified documented in this encounter Care Teams Continuous Churn Buttermaker Relationship Specialty Start Date End Date Chahca Bridges MD PCP - General Internal Medicine 02/06/19 05/29/19 [id number] [place] [id number] documented as of this encounter
--- OUTSIDE RECORDS SUMMARY | 2022-07-08 11:03 | XMS_ITS | Encounter Summary ---
:1990 Author Organization [facility] Address [address] [place] [address] Care Team Providers Name Role Phone Unavailable Primary Care Provider Unavailable Encounter Details Date Type Department Care Team Description 07/07/2006 PN Conversion Only [facility] CONV [address] [place] [address] Social History Tobacco Use Types Packs/Day Years [...]
--- OUTSIDE RECORDS SUMMARY | 2022-07-08 11:03 | XMS_ITS | Encounter Summary ---
:1990 Author Organization [facility] Address [address] [place] [address] Care Team Providers Name Role Phone Chacha Bridges MD Primary Care Provider Reason for Visit Reason Comments EXCESSIVE SWEATING Encounter Details Date Type Department Care Team Description 03/01/2019 Office Visit [facility] Ernesto Castellano, Helga betancourt (Primary Dx); Medicine PA-C Anxiety; [address]. [address] [facility] [place] [address] [phone] Social History Tobacco Use Types Packs/Day Years Used Date Smoking Tobacco: Every Day Cigarettes 0.3 Smokeless Tobacco: Never Comments: working on quitting Alcohol Use Standard Drinks/Week Comments Not Currently 0 (1 standard drink = 0.6 oz pure alcoho l) sober [id number] Alcohol Habits Answer Date Recorded How often [...] Sign Reading Time Taken Comments Blood Pressure 109/73 03/01/2019 8:05 AM CDT Pulse 84 03/01/2019 8:05 AM CDT Temperature - - Respiratory Rate 16 03/01/2019 8:05 AM CDT Oxygen Saturation - - Inhaled Oxygen Concentration - - Weight 76.2 kg (168 lb) 03/01/2019 8:05 AM CDT Height 172.1 cm (5' 7.75) 03/01/2019 8:05 AM CDT Body Mass Index 25.73 03/01/2019 8:05 AM CDT documented in this encounter Patient Instructions Patient InstructionsErnesto Castellano PA-C - 03/01/2019 8:00 AM CDT Plan: 1). Will try resumption of Glycopyronate 2mg 1-2x daily for excessive sweating 2). Lorazepam refilled. Dose increased to 1mg and frequency decreased to twice daily. 3). Follow up with any other acute issues or concerns. documented in this encounter Progress Notes Ernesto Castellano PA-C - 03/01/2019 8:00 AM CDT Chief Complaint Patient presents with ??? EXCESSIVE SWEATING History of present illness: Jolynn Mcdonald is a 28 y.o. female who presents with the followin). Excessive sweating: Patient has had a long history of issues with excessive generalized sweatingwith any activity. It has been somewhat of a social difficulty for her when she is the only one who sweats. She is most concerned because she has a big family democrat this weekend and does not want to sweat as much. Historically she was prescribe what I believe is glycopyronate for her symptoms which she said worked very effectively for her. She has had several lab work-ups in the past. 2). Anxiety/agoraphobia: Patient is trying to wean off of controlled substances She is on Buspar andEffexor which is working fairly well however still taking Lorazepam 0.5mg 3x daily. She was wanting to try increasing dose to 1mg dose but only taking twice daily with the hopes she can wean this down better over time. She continues to take Methadone for chronic pain/opiate issues and is drying to aggressively wean off this as well. She continues to do regular counseling which has been good. No suicidal thoughts. Review of Systems: Constitutional: No fevers, chills, fatigue. Positive for excessive sweating Eyes: No eye pain, drainage, visual changes CHEST: No cough or breathing difficulty HEART: No chest pain, no edema. ABD: No abdominal pain, nausea, vomiting or diarrhea. M/S: Positive for chronic generalized pain. No acute joint pain/swelling. NEURO: No headaches, dizziness, weakness SKIN: No rashes or itching, no worrisome skin lesions. PSYCH: Positive for anxiety/depression. No suicidal thoughts. Past Medical History: Reviewed and updated in medical record at visit Past Surgical History: Reviewed and updated in medical record at visit Family History: Reviewed and updated in medical record at visit Medications: Reviewed and reconciled in medical record at visit. Allergies: Reviewed and updated in medical record at visit. Physical Exam: Vitals: 03/01/19 0805 BP: 109/73 Pulse: 84 Resp: 16 GEN: Alert, oriented, well nourished/hydrated in NAD EYES: PEERL, EOMI NECK: Supple, trachea midline, no LAD CHEST: Normal effort, CTA. HEART: RRR, No audible murmur, rub or gallop. SKIN: Warm and dry without rash M/S: No joint swelling or redness. NEURO: CN 2-12 intact, non-focal exam PSYCH: Alert and oriented. Normal affect, and interaction. Fairly good insight. Diagnosis: Encounter Diagnoses Name Primary? Bromhidrosis Yes ??? Anxiety ??? Agoraphobia Plan: 1). Will try resumption of Glycopyronate 2mg 1-2x daily for excessive sweating 2). Lorazepam refilled. Dose increased to 1mg and frequency decreased to twice daily. 3). Follow up with any other acute issues or concerns. 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
--- OUTSIDE RECORDS SUMMARY | 2022-07-08 11:03 | XMS_ITS | Encounter Summary ---
:1990 Author Organization [facility] Address [address] [place] [address] Care Team Providers Name Role Phone Ernesto Castellano PA-C Primary Care Provider Reason for Visit Reason Onset Date Comments Refill 06/15/2019 glycopyrrolate (SHARON NUL) 2 MG tablet Encounter Details Date Type Department Care Team Description 06/15/2019 Refill [facility] Ernesto Castellano, Refill (glycopyrrolate Medicine HAR[facility] (ROBINUL) 2 MG tablet) [address]. [address] [place], [place] [address] [phone] Social History Tobacco Use Types Packs/Day Years Used Date Smoking Tobacco: Every Day Cigarettes 0.3 Smokeless Tobacco: Never Comments: working on quitting Alcohol Use Standard Drinks/Week Comments Not Currently 0 (1 standard drink = 0.6 oz pure alcoho l) sober [id number] Alcohol Habits Answer Date Recorded How often [...] as of this encounter Nursing Notes Ernesto Castellano PA-C - 06/17/2019 12:01 PM CDT Glycopyrrolate refilled Interface, Out LoHaria Query - 06/15/2019 4:16 PM CDT glycopyrrolate (ROBINUL) 2 MG tablet Medication started: 03/01/2019 Last ordered by ERNESTO CASTELLANO: 03/01/2019 (106 days ago) QTY: 60, Refills: 3, Sig: take 1 tablet by mouth two times a day. (unchanged) -> Medication cannot be delegated. Last qualifying visit: 05/31/2019 (with ERNESTO CASTELLANO) Next scheduled visit: None Powered by [employer], Reference: [id number], 06/15/2019 4:16:25 PM CDT, Pool: PN REFILL WIZARD ADMIN ([id number]) Mickey Dash - 06/15/2019 4:15 PM CDT Medications - Refill Request (able [...] refills) Please route to: Refill Pool (P [id number]) [place] FP Pool [place] Patients ONLY (P [id number]) [facility] Arredondo ONLY (P [id number]) documented in this encounter Plan of Treatment Not on filedocumented as of this encounter Visit Diagnoses Diagnosis Bromhidrosis Other specified disorder of sweat glands documented in this encounter Care Teams Stretching Machine Tender Frame Relationship Specialty Start Date End Date Ernesto Castellano PA-C PCP - General Physician Submarine Diver 05/30/19 [address] [place] [address] documented as of this encounter
--- OUTSIDE RECORDS SUMMARY | 2022-07-08 11:03 | XMS_ITS | Encounter Summary ---
:1990 Author Organization [facility] Address [address] [place] [address] Care Team Providers Name Role Phone Ernesto Castellano PA-C Primary Care Provider Reason for Visit Reason Comments Dysuria urinary frequency x4d Encounter Details Date Type Department Care Team Description 05/31/2019 Office Visit [facility] Ernesto Castellano, Dysuria (Primary Dx); Medicine [facility] [address] [facility] [address] [facility] [place] [address] [phone] Social History Tobacco Use Types Packs/Day Years Used Date Smoking Tobacco: Every Day Cigarettes 0.3 Smokeless Tobacco: Never Comments: working on quitting Alcohol Use Standard Drinks/Week Comments Not Currently 0 (1 standard drink = 0.6 oz pure alcoho l) sober [id number] Alcohol Habits Answer Date Recorded How often [...] Sign Reading Time Taken Comments Blood Pressure 108/75 05/31/2019 8:05 AM CDT Pulse 113 05/31/2019 8:05 AM CDT Temperature 37.2 ??C (99 ??F) 05/31/2019 8:05 AM CDT Respiratory Rate 16 05/31/2019 8:05 AM CDT Oxygen Saturation - - Inhaled Oxygen Concentration - - Weight 71.2 kg (157 lb) 05/31/2019 8:05 AM CDT Height 168.9 cm (5' 6.5) 05/31/2019 8:05 AM CDT Body Mass Index 24.96 05/31/2019 8:05 AM CDT documented in this encounter Patient Instructions Patient InstructionsErnesto Castellano PA-C - 05/31/2019 8:00 AM CDT Plan: 1). Keflex 500 3x daily for 5 days pending urine culture. 2). Will follow up on urine culture and adjust treatment if needed per results and/or response to treatment. 3). Symptomatic care with fluids, rest, Ibuprofen/Tylenol for pain and fevers. 4). For anxiety/depression: Can try switching Effexor back to Wellbutrin 150mg XL daily. Continue Buspar twice daily. 5). Follow up with acute worsening of symptoms, feeling sicker, or any other concerns. documented in this encounter Progress Notes Ernesto Castellano PA-C - 05/31/2019 8:00 AM CDT Chief Complaint Patient presents with ??? Dysuria urinary frequency x4d History of present illness: Jolynn Mcdonald is a 28 y.o. female who presents with the followin). Concern for UTI. Has had a 4 day history of burning with urination/dysuria, increased urinary frequency, and urgency. No hematuria. No vaginal discharge or other vaginal symptoms. No suprapubic discomfort. No other abdominal pain. No fevers, back pain, nausea or vomiting. No significant history ofUTIs. Has had recent (-) testing with concern for STI exposure. Has not taken anything for current symptoms. No other acute issues or concerns. 2). Anxiety/depression/ADHD: Patient has persistent issues with anxiety, depression and ADHD. Had been doing better on Effexor 150mg XR and Buspar 15mg twice daily. She expresses concerns that she heard that Effexor can cause some intermediate memory loss. She also states that she had been on Wellbutrin and really felt that she did better on it. Discussed that we could certainly try switching back to the Wellbutrin. Is still using Lorazepam 1mg twice daily and Adderrall 25mg XR daily. Is having some issues with sleep due to current family situation however already takes Seroquel and with all of her other medications would not likely add anything else. Review of Systems: Constitutional: No fevers, chills, fatigue CHEST: No cough or breathing difficulty. HEART: No chest pain, no edema. ABD: No abdominal pain, nausea, vomiting or diarrhea. : Positive for dysuria, increased frequency, and urgency. No vaginal discharge, or irritation. M/S: No back pain, joint pain or swelling, no muscle pain. NEURO: No headaches, dizziness, weakness SKIN: No rashes or itching, no worrisome skin lesions. PSYCH: Positive for anxiety and depression, sleep issues. Past Medical History: Reviewed and updated in medical record at visit Past Surgical History: Reviewed and updated in medical record at visit Family History: Reviewed and updated in medical record at visit Medications: Reviewed and reconciled in medical record at visit. Allergies: Reviewed and updated in medical record at visit. Physical Exam: Vitals: 05/31/19 0805 BP: 108/75 Pulse: (!) 113 Resp: 16 Temp: 99 ??F (37.2 ??C) GEN: Alert, oriented, well nourished/hydrated in NAD EYES: PEERL, EOMI CHEST: Normal effort, CTA. HEART: RRR, No audible murmur, rub or gallop. ABD: No supra-pubic tenderness. No other focal tenderness, rebound, or guarding. No CVAT Vaginal exam deferred. SKIN: Warm and dry without rash M/S: No joint swelling or redness. NEURO: CN 2-12 intact, non-focal exam PSYCH: Alert and oriented. Overall normal interaction, affect somewhat flat. Lab Results Component Value Date Urine Clarity Clear 05/31/2019 Bilirubin Urine Negative 05/31/2019 Blood, Urine Moderate (A) 05/31/2019 Glucose Urine Qual (mg/dL) Negative 05/31/2019 Ketones, Urine (mg/dL) Negative 05/31/2019 Leukocyte Est. Large (A) 05/31/2019 PH Urine 7.0 05/31/2019 Protein, Urine Qual (mg/dL) 30 (A) 05/31/2019 Specific [place], Urine 1.020 05/31/2019 Urobilinogen, Urine (EU/dL) 0.2 05/31/2019 Diagnosis: Encounter Diagnoses Name Primary? Dysuria Yes ??? Anxiety ??? Persistent depressive disorder Plan: 1). Keflex 500 3x daily for 5 days pending urine culture. 2). Will follow up on urine culture and adjust treatment if needed per results and/or response to treatment. 3). Symptomatic care with fluids, rest, Ibuprofen/Tylenol for pain and fevers. 4). For anxiety/depression: Can try switching Effexor back to Wellbutrin 150mg XL daily. Continue Buspar twice daily. 5). Follow up with acute worsening of symptoms, feeling sicker, or any other concerns. documented in this encounter Plan of Treatment Not on filedocumented as of this encounter Results Urine Culture (05/31/2019 8:14 AM CDT) Skinny Mom Method Time Signature Urine Culture Urogenital 06/01/2019 [facility] [place] 2:05 PM CDT HOSPITAL Specimen Anatomical Collection Method Collection Time Receive d Time (Source) Location / / Volume Laterality Urine URINE SPECIMEN Non-blood 05/31/2019 8:14 AM 019 8:17 COLLECTION, CLEAN Collection / CDT AM CDT CATCH / Unknown Unknown Ernesto Castellano PA-C LAB_1 Performing Organization Address City/State/ZIP Code Phon e Number [address] [address] (ABNORMAL) Urine Dipstick NPT (05/31/2019 8:14 AM CDT) Skinny Mom Method Time Signature Glucose Urine Negative Negative 05/31/2019 [facility] Qual (mg/dL) 8:20 AM CDT LAB Bilirubin Negative Negative 05/31/2019 [facility] Urine 8:20 AM CDT LAB Ketones, Negative Negative 05/31/2019 [facility] Urine (mg/dL) 8:20 AM CDT LAB Specific 1.020 1.005 - 05/31/2019 [facility] [place], 1.030 8:20 AM CDT LAB Urine Blood, Urine Moderate (A) Neg/Trace 05/31/2019 [facility] 8:20 AM CDT LAB PH Urine 7.0 5.0 - 8.0 05/31/2019 [facility] 8:20 AM CDT LAB Protein, 30 (A) Neg/Trace 05/31/2019 [facility] Urine Qual 8:20 AM CDT LAB (mg/dL) Urobilinogen, 0.2 <2.0 05/31/2019 [facility] Urine (EU/dL) 8:20 AM CDT LAB Nitrite Urine Negative Negative 05/31/2019 [facility] 8:20 AM CDT LAB Leukocyte Large (A) Negative 05/31/2019 [facility] Est. 8:20 AM CDT LAB Urine Color Yellow Straw-Yellow 05/31/2019 [facility] 8:20 AM CDT LAB Urine Clarity Clear Clear 05/31/2019 [facility] 8:20 AM CDT LAB Specimen Anatomical Collection Method Collection Time Receive d Time (Source) Location / / Volume Laterality Urine URINE SPECIMEN Non-blood 05/31/2019 8:14 AM 019 8:17 COLLECTION, CLEAN Collection / CDT AM CDT CATCH / Unknown Unknown Ernesto Castellano PA-C LAB_1 Performing Organization Address City/State/ZIP Code Phon e Number [facility] [address] [place] [phone] [facility] [address] [place] [address], [facility] [place] documented in this encounter Visit Diagnoses Diagnosis Dysuria - Primary Anxiety Anxiety state, unspecified Persistent depressive disorder documented in this encounter Care Teams Surface Hydrologist Relationship Specialty Start Date End Date Ernesto Castellano PA-C PCP - General Physician Layaway Clerk 05/30/19 [address] [place] [address] documented as of this encounter
--- OUTSIDE RECORDS SUMMARY | 2022-07-08 11:03 | XMS_ITS | Encounter Summary ---
:1990 Author Organization [facility] Address [address] [place] [address] Care Team Providers Name Role Phone Md KALEB Collazo Primary Care Provider Reason for Visit Reason Comments ERRONEOUS ENTRY Encounter Details Date Type Department Care Team Description 08/02/2012 Office Visit Petrona Garcia PT ERRONEOUS ENTRY Therapy [address] (Primary Dx) [address] [place], [place] [address] [phone] (Wo rk) Social History Tobacco Use Types [...] as of this encounter Progress Notes Meri Munoz PT - 11/18/2015 4:26 PM CST A user error has taken place: encounter opened in error, closed for administrative reasons. L DRILLING MACHINE OPERATOR documented in this encounter Plan of Treatment Not on filedocumented as of this encounter Visit Diagnoses Diagnosis ERRONEOUS ENTRY - Primary documented in this encounter Care Teams Housing Manager Relationship Specialty Start Date End Date Md Collazo MD PCP - General 07/26/12 02/05/19 [place] [address] documented as of this encounter
--- OUTSIDE RECORDS SUMMARY | 2022-07-08 11:03 | XMS_ITS | Encounter Summary ---
:1990 Author Organization [facility] Address [address] [place] [address] Care Team Providers Name Role Phone Unavailable Primary Care Provider Unavailable Encounter Details Date Type Department Care Team Description 08/02/2006 PN Conversion Only [facility] CONV [address] [place] [address] Social History Tobacco Use Types Packs/Day Years [...]
--- OUTSIDE RECORDS SUMMARY | 2022-07-08 11:03 | XMS_ITS | Encounter Summary ---
:1990 Author Organization [facility] Address [address], [place] [address] Care Team Providers Name Role Phone Md KALEB Collazo Primary Care Provider Encounter Details Date Type Department Care Team Description 10/24/2013 Orders Only [facility] Claims MD Kendra Security Contact Bill [address] [place] [address] Mailstop [id number] [phone] (Wo rk) Social History Tobacco Use Types [...] on filedocumented in this encounter Care Teams Gasoline Power Shovel Operator Relationship Specialty Start Date End Date Md Collazo MD PCP - General 07/26/12 02/05/19 [place], [place] [address] documented as of this encounter
--- OUTSIDE RECORDS SUMMARY | 2022-07-08 11:03 | XMS_ITS | Encounter Summary ---
:1990 Author Organization [facility] Address [address] [place] [address] Care Team Providers Name Role Phone Ernesto Castellano PA-C Primary Care Provider Reason for Visit Reason Onset Date Comments Refill 07/06/2019 LORazepam (ATIVAN) 1 MG tablet Encounter Details Date Type Department Care Team Description 07/06/2019 Refill [facility] Ernesto Castellano, Refill (LORazepam Medicine [facility] (ATIVAN) 1 MG tablet) [address] [address] [place], [place] [id number] [phone] Social History Tobacco Use Types Packs/Day Years Used Date Smoking Tobacco: Every Day Cigarettes 0.3 Smokeless Tobacco: Never Comments: working on quitting Alcohol Use Standard Drinks/Week Comments Not Currently 0 (1 standard drink = 0.6 oz pure alcoho l) sober [id number] Alcohol Habits Answer Date Recorded How often [...] encounter Nursing Notes Loretta Ching LPN - 07/06/2019 1:47 PM CDT Called pt and left her a detailed message with the information below. Clinic number was provided forpt to call and schedule an appt at her earliest convenience Ernesto Castellano PA-C - 07/06/2019 12:58 PM CDT I sent a prescription for #14 Lorazepam. She needs to follow up with me next week when I am back in clinic. Interface, Out Daily Sales Exchange Prov Query - 07/06/2019 12:09 PM CDT LORazepam (ATIVAN) 1 MG tablet Medication started: 02/08/2019 Last ordered by ERNESTO CASTELLANO: 05/31/2019 (36 days ago) QTY: 60, Refills: 0, Simg twice daily as needed for anxiety (unchanged) -> Medication cannot be delegated. Last qualifying visit: 05/31/2019 (with ERNESTO CASTELLANO) Next scheduled visit: None Powered by [employer], Reference: [id number], 07/06/2019 12:09:33 PM CDT, Pool: PN REFILL WIZARD ADMIN ([id number]) Interface, Out Daily Sales Exchange Prov Query - 07/06/2019 12:09 PM CDT No Careplan note found by [facility]. Leigha Chao RN - 07/06/2019 12:09 PM CDT Routing to refill pool Rocio Lebron - 07/06/2019 9:33 AM CDT Medications - Refill Request (able to re-order) Name of prescribing clinician: Ernesto Castellano PA-C Additional comments (related to the above concern): Patient is out of the medication For this refill, patient would like it [...] refills) Please route to: Refill Pool (P [id number]) [place] FP Pool [place] Patients ONLY (P [id number]) [facility] [place] ONLY (P [id number]) documented in this encounter Plan of Treatment Not on filedocumented as of this encounter Visit Diagnoses Diagnosis Anxiety Anxiety state, unspecified documented in this encounter Care Teams Refrigerator Glazier Relationship Specialty Start Date End Date Ernesto Castellano PA-C PCP - General Physician Public Health Informatician 05/30/19 [address] [place] [address] documented as of this encounter
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
--- OUTSIDE RECORDS SUMMARY | 2022-07-08 11:03 | XMS_ITS | Encounter Summary ---
:1988 Author Organization [facility] Address [address] [place] [address] Care Team Providers Name Role Phone Unavailable Primary Care Provider Unavailable Encounter Details Date Type Department Care Team Description 01/20/2011 PN Conversion Only CONVERSION CONVERSION Scooby Burgos Social History [...]
--- OUTSIDE RECORDS SUMMARY | 2022-07-08 11:03 | XMS_ITS | Encounter Summary ---
:1990 Author Organization [facility] Address [address], [place] [address] Care Team Providers Name Role Phone Md KALEB Collazo Primary Care Provider Encounter Details Date Type Department Care Team Description 06/03/2010 Orders Only HP Claims MD Kendra Security Contact Bill [address] [place] [address] Mailstop [id number] [phone] (Wo rk) Social History Tobacco Use Types [...] on filedocumented in this encounter Care Teams Clinic Specialist Relationship Specialty Start Date End Date Md Collazo MD PCP - General 07/26/12 02/05/19 [place], [place] [id number] documented as of this encounter
--- OUTSIDE RECORDS SUMMARY | 2022-07-08 11:03 | XMS_ITS | Encounter Summary ---
:1990 Author Organization [facility] Address [address] [place] [address] Care Team Providers Name Role Phone Chacha Bridges MD Primary Care Provider Reason for Visit Reason Comments Clinician Finder Team Encounter Details Date Type Department Care Team Description 02/06/2019 Telephone [facility] [address] Chacha Bridges Cli nician Finder Team Family Medicine [address] [facility] [address] [place] [id number] [phone] Social History Tobacco Use Types Packs/Day Years [...] on filedocumented in this encounter Care Teams Machining Department Supervisor Relationship Specialty Start Date End Date Chacha Bridges MD PCP - General Internal Medicine 02/06/19 05/29/19 [id number] BIJU COLLINS [address] documented as of this encounter
--- OUTSIDE RECORDS SUMMARY | 2022-07-08 11:03 | XMS_ITS | Encounter Summary ---
:1990 Author Organization [facility] Address [address] [place] [address] Care Team Providers Name Role Phone Ernesto Castellano PA-C Primary Care Provider Encounter Details Date Type Department Care Team Description 05/31/2019 Lab Visit [facility] [address] [place] [address] Social History Tobacco Use Types Packs/Day Years Used Date Smoking Tobacco: Every Day Cigarettes 0.3 Smokeless Tobacco: Never Comments: working on quitting Alcohol Use Standard Drinks/Week Comments Not Currently 0 (1 standard drink = 0.6 oz pure alcoho l) sober [id number] Alcohol Habits Answer Date Recorded How often [...] Procedure Name Priority Date/Time Associated Comments Diagnosis URINE CULTURE Routine 05/31/2019 8:14 AM Dysuria Results for this CDT procedure are i n the results section. AUTOMATED URINALYSIS Routine 05/31/2019 8:14 AM Dysuria R esults for this DIPSTICK POCT CDT procedure are in the results section. documented in this encounter Results Urine Culture (05/31/2019 8:14 AM CDT) Patholo gist Method Time Signature Urine Culture Urogenital 06/01/2019 [facility] 2:05 PM CDT HOSPITAL Specimen Anatomical Collection Method Collection Time Receive d Time (Source) Location / / Volume Laterality Urine URINE SPECIMEN Non-blood 05/31/2019 8:14 AM 019 8:17 COLLECTION, CLEAN Collection / CDT AM CDT CATCH / Unknown Unknown Ernesto Castellano PA-C LAB_1 Performing Organization Address City/State/ZIP Code Phon e Number [address] [address] (ABNORMAL) Urine Dipstick NPT (05/31/2019 8:14 AM CDT) [facility] Method Time Signature Glucose Urine Negative Negative 05/31/2019 [facility] Qual (mg/dL) 8:20 AM CDT LAB Bilirubin Negative Negative 05/31/2019 [facility] Urine 8:20 AM CDT LAB Ketones, Negative Negative 05/31/2019 [facility] Urine (mg/dL) 8:20 AM CDT LAB Specific 1.020 1.005 - 05/31/2019 [facility] [place], 1.030 8:20 AM CDT LAB Urine Blood, Urine Moderate (A) Neg/Trace 05/31/2019 [facility] 8:20 AM CDT LAB PH Urine 7.0 5.0 - 8.0 05/31/2019 [facility] 8:20 AM CDT LAB Protein, 30 (A) Neg/Trace 05/31/2019 [facility] Urine Qual 8:20 AM CDT LAB (mg/dL) Urobilinogen, 0.2 <2.0 05/31/2019 [facility] Urine (EU/dL) 8:20 AM CDT LAB Nitrite Urine Negative Negative 05/31/2019 [facility] 8:20 AM CDT LAB Leukocyte Large (A) Negative 05/31/2019 [facility] Est. 8:20 AM CDT LAB Urine Color Yellow Straw-Yellow 05/31/2019 [facility] 8:20 AM CDT LAB Urine Clarity Clear Clear 05/31/2019 [facility] 8:20 AM CDT LAB Specimen Anatomical Collection Method Collection Time Receive d Time (Source) Location / / Volume Laterality Urine URINE SPECIMEN Non-blood 05/31/2019 8:14 AM 019 8:17 COLLECTION, CLEAN Collection / CDT AM CDT CATCH / Unknown Unknown Ernesto Castellano PA-C LAB_1 Performing Organization Address City/State/ZIP Code Phon e Number [facility] [address] [place] [address] [facility] [address] [place] [address], [facility] documented in this encounter Visit Diagnoses Diagnosis Dysuria documented in this encounter Care Teams Environmental Advisor Relationship Specialty Start Date End Date Ernesto Castellano PA-C PCP - General Physician Room Cleaner 05/30/19 [address] [place] [address] documented as of this encounter
--- OUTSIDE RECORDS SUMMARY | 2022-07-08 11:03 | XMS_ITS | Encounter Summary ---
:1990 Author Organization [facility] Address [address] [place] [address] Care Team Providers Name Role Phone Ernesto Castellano PA-C Primary Care Provider Reason for Visit Reason Onset Date Comments Refill 06/29/2019 LORazepam (ATIVAN) 1 MG tablet Encounter Details Date Type Department Care Team Description 06/29/2019 Refill [facility] Ernesto Castellano, Refill (LORazepam Medicine HAR[facility] (ATIVAN) 1 MG tablet) [address] [address] [place], [place] [phone] Social History Tobacco Use Types Packs/Day Years Used Date Smoking Tobacco: Every Day Cigarettes 0.3 Smokeless Tobacco: Never Comments: working on quitting Alcohol Use Standard Drinks/Week Comments Not Currently 0 (1 standard drink = 0.6 oz pure alcoho l) sober [id number] Alcohol Habits Answer Date Recorded How often [...] encounter Nursing Notes Amanda Keating LPN - 07/04/2019 9:20 AM CDT LM for patient that she needs to schedule a med check prior to any refills being given. Ernesto Castellano PA-C - 07/03/2019 6:47 PM CDT Patient is going to have to do a follow up visit with me prior to being able to refill Lorazepam. Interface, Out Phizzle Prov Query - 06/29/2019 11:39 AM CDT LORazepam (ATIVAN) 1 MG tablet Medication started: 02/08/2019 Last ordered by ERNESTO CASTELLANO: 05/31/2019 (29 days ago) QTY: 60, Refills: 0, Simg twice daily as needed for anxiety (unchanged) -> Medication cannot be delegated. Last qualifying visit: 05/31/2019 (with ERNESTO CASTELLANO) Next scheduled visit: None Powered by [employer], Reference: [id number], 06/29/2019 11:39:38 AM CDT, Pool: PN REFILL WIZARD ADMIN ([id number]) Interface, Out Phizzle Prov Query - 06/29/2019 11:39 AM CDT No Careplan note found by [employer]. Rocio Lebron R - 06/29/2019 11:38 AM CDT Medications - Refill Request (able [...] refills) Please route to: Refill Pool (P [id number]) [place] FP Pool [place] Patients ONLY (P [id number]) [facility] ONLY (P [id number]) documented in this encounter Plan of Treatment Not on filedocumented as of this encounter Visit Diagnoses Diagnosis Anxiety Anxiety state, unspecified documented in this encounter Care Teams Newspaper Columnist Relationship Specialty Start Date End Date Ernesto Castellano PA-C PCP - General Physician Clinical Unit Educator 05/30/19 [address] [place] [address] documented as of this encounter
--- OUTSIDE RECORDS SUMMARY | 2022-07-08 11:03 | XMS_ITS | Encounter Summary ---
:1990 Author Organization [employer] Address [address] [place] [address] Care Team Providers Name Role Phone Chacha Bridges MD Primary Care Provider Reason for Visit Reason Comments Annual Exam Encounter Details Date Type Department Care Team Description 02/08/2019 Office Visit [facility] Ernetso Castellano Well ad ult exam (Primary Dx); Medicine PA-C Anxiety; [address] [address] [facility] Persistent depressive disorder; [place], [place] Other insomni a [address] [phone] Social History Tobacco Use Types Packs/Day Years Used Date Smoking Tobacco: Every Day Cigarettes 0.3 Smokeless Tobacco: Never Comments: working on quitting Alcohol Use Standard Drinks/Week Comments Not Currently 0 (1 standard drink = 0.6 oz pure alcoho l) sober [id number] Alcohol Habits Answer Date Recorded How often [...] Sign Reading Time Taken Comments Blood Pressure 120/85 02/08/2019 4:31 PM CDT Pulse 78 02/08/2019 4:31 PM CDT Temperature - - Respiratory Rate 16 02/08/2019 4:31 PM CDT Oxygen Saturation - - Inhaled Oxygen Concentration - - Weight 76.2 kg (168 lb) 02/08/2019 4:31 PM CDT Height 172.1 cm (5' 7.75) 02/08/2019 4:31 PM CDT Body Mass Index 25.73 02/08/2019 4:31 PM CDT documented in this encounter Patient Instructions Patient InstructionsErnesto Castellano PA-C - 02/08/2019 4:20 PM CDT Plan: 1). Will follow up on labs when done and address any concerns 2). Will follow up on medication refills as needed. 3). Follow up with any other acute concerns documented in this encounter Progress Notes Ernesto Castellano PA-C - 02/08/2019 4:20 PM CDT Subjective: Jolynn Mcdonald is a 28 y.o. female and is here for a comprehensive physical exam. Other issues addressed: 1). Anxiety/Chronic pain syndrome: Patient has issues with anxiety, insomnia, as well as chronic pain. She is currently being managed by pain clinic and taking Methadone 80mg which has been gradually being weaned down with the hopes of getting completely off. Her anxiety is somewhat difficult to control, currently on Venlafaxine 150mg daily, Buspar 15mg twice daily and using Lorazepam 0.5mg twice daily. Taking Seroquel 100mg at night for sleep. As she weans down the Methadone she is having increasedissues with anxiety. She was hoping to increase Lorazepam to 1mg tabs. Historically she had been on 2mg tablets but wants to ultimately get off all controlled substances. Denies any current suicidal tho ughts. She does not currently have a psychiatrist. Health Maintenance: Last PAP: 09/13/2018 Abnormal PAPs: No Last Mammogram: Not due for (No family history of breast cancer). Children: No Control: [employer] HABITS Smokin-3 cig every 2-3 (Trying to wean). Alcohol use: None Drug use: No Exercise: No regular (Discussed importance of continued and increased exercise regimen). Marital Status: Single Employment: Not currently working. Significant Family Hx CAD/HTN/Hyperlidemia: Dad with hyperlipidemia DM: Mom with diabetes Colon cancer: No Other: None Colonoscopy: No (Not due for) Do you take any herbs or supplements that were not prescribed by a doctor? No Are you taking calcium supplements? No Are you taking aspirin daily? No Review of Systems Do you have pain that bothers you in your daily life? No Pertinent items are noted in HPI. Comprehensive ROS otherwise negative. Objective: General Appearance: Alert, cooperative, no distress, appears stated age Head: Normocephalic, without obvious abnormality, atraumatic Eyes: PERRL, conjunctiva/corneas clear, EOM's intact, fundi benign, both eyes Ears: Normal TM's and external ear canals, both ears Nose: Nares normal, septum midline, mucosa normal, no drainage or sinus tenderness Throat: Lips, mucosa, and tongue normal; teeth and gums normal Neck: Supple, symmetrical, trachea midline, no adenopathy; thyroid: no enlargement/tenderness/nodules; no carotid bruit or JVD Back: Symmetric, no curvature, ROM normal, no CVA tenderness Lungs: Clear to auscultation bilaterally, respirations unlabored Chest Wall: No tenderness or deformity Heart: Regular rate and rhythm, S1 and S2 normal, no murmur, rub or gallop Breast Exam: No tenderness, masses, or nipple abnormality Abdomen: Soft, non-tender, bowel sounds active all four quadrants, no masses, no organomegaly Genitalia: Deferred Rectal: Deferred Extremities: Extremities normal, atraumatic, no cyanosis or edema Pulses: 2+ and symmetric all extremities Skin: Skin color, texture, turgor normal, no rashes or lesions Lymph nodes: Cervical, supraclavicular, and axillary nodes normal Neurologic: CNII-XII intact, normal strength, sensation and reflexes throughout Assessment: Jolynn was seen today for annual exam. Diagnoses and all orders for this visit: Well adult exam - Lipid Panel - LDLD If Trig High; Future - Glucose; Future - TSH with Free T4 (if TSH Abnormal); Future Anxiety (HRC) Persistent depressive disorder (HRC) Other insomnia Plan: 1). Will follow up on labs when done and address any concerns 2). Will follow up on medication refills as needed. 3). Follow up with any other acute concerns Patient Counseling: --Nutrition: Stressed importance of moderation in sodium/caffeine intake, saturated fat and cholesterol, caloric balance, sufficient intake of fresh fruits, vegetables, fiber, calcium, iron, and 1 mg of folate supplement per day (for females capable of ). --Discussed the issue of estrogen replacement, calcium supplement, and the daily use of baby aspirin. --Exercise: Stressed the importance of regular exercise. --Substance Abuse: Discussed cessation/primary prevention of tobacco, alcohol, or other drug use; driving or other dangerous activities under the influence; availability of treatment for abuse. --Sexuality: Discussed sexually transmitted diseases, partner selection, use of condoms, avoidance of unintended and contraceptive alternatives. --Injury prevention: Discussed safety belts, safety helmets, smoke detector, smoking near bedding orupholstery. --Dental health: Discussed importance of regular tooth brushing, flossing, and dental visits. --Immunizations reviewed. --Discussed benefits of screening colonoscopy. --After hours service discussed with patient Follow up as needed for acute illness or in 1 year for follow up physical documented in this encounter Plan of Treatment Not on filedocumented as of this encounter Visit Diagnoses Diagnosis Well adult exam - Primary Routine general medical examination at a health care facility Anxiety (HRC) Anxiety state, unspecified Persistent depressive disorder (HRC) Other insomnia documented in this encounter Care Teams Roasterman Relationship Specialty Start Date End Date Chacha Bridges MD PCP - General Internal Medicine 02/06/19 05/29/19 [id number] BIJU COLLINS [id number] documented as of this encounter
--- OUTSIDE RECORDS SUMMARY | 2022-07-08 11:04 | XMS_ITS | Clinical Summary ---
:1990 Author Organization [facility] [place] [address] Care Team Providers Name Role Phone Chacha Bridges MD Primary Care Provider Allergies Active Allergy Reactions Severity Noted Date Comments [place] Derived Anaphylaxis, High 09/12/2016 Bleeding from Bleeding lesions in mout h [place] Anaphylaxis, High 09/12/2016 Bleeding from Bleeding lesion formatio ns in mouth Latex Rash Low 04/20/2006 rash from glove s Medroxyprogesterone Other - Describe 01/18/2018 my circulation in In Comment Field my legs kj nged. Shellfish Containing Throat High 09/13/2016 Products Swelling/Closing Medications Medication Sig Dispensed Refills Start Date End Date Status nicotine (NICORETTE) 2 Take 1 Each by 110 Each 0 09/19/2016 Active mg gumIndications: mouth every hour Tobacco use disorder if needed for Nicotine Craving. valACYclovir (VALTREX) TAKE 1 TABLET BY 1 08/16/2018 Active 500 mg tablet MOUTH DAILY FOR SUPPRESSIVE THERAPIES. polyethylene glycoL Take 17 g by mouth 1 jar 11 09/13/2018 Active (MIRALAX) 17 gram/dose once daily if powderIndications: needed for Constipation, Constipation. unspecified constipation type etonogestrel-ethinyl 1 ring every 4 3 ring 2 09/27/2018 Active estradiol (NUVARING) weeks. Insert 1 vaginal ring vaginally and ringIndications: leave in place for Encounter for 3 consecutive contraceptive weeks, then remove management, for 1 week. Repeat unspecified type with new ring. BOOST 0.04 gram- 1 ONE BOTTLE PER DAY 99 10/17/2018 Active kcal/mL liqd acetaminophen (TYLENOL Take 2 tablets by 0 9 Active EXTRA STRGTH) 500 mg mouth every 6 tablet hours if needed. Max acetaminophen dose: 4000mg in 24 hrs. prazosin (MINIPRESS) 2 Take 3 capsules by 60 capsule 0 019 Active mg capsuleIndications: mouth once daily. Nightmares, at bedtime Depression, recurrent (HC), Generalized anxiety disorder gabapentin (NEURONTIN) Take 1 capsule by 30 Each 0 9 Active 300 mg mouth 3 times capsuleIndications: daily. Severe benzodiazepine use disorder (HC) venlafaxine (EFFEXOR TAKE 1 CAPSULE BY 30 capsule 0 01/17/2019 Active XR) 150 mg MOUTH ONCE DAILY Extended-Release WITH A MEAL. capsuleIndications: PTSD (post-traumatic stress disorder) ranitidine (ZANTAC) Take 1 tablet by 60 tablet 5 01/24/2019 Active 150 mg mouth 2 times tabletIndications: daily. 30 min ac Gastroesophageal reflux disease, esophagitis presence not specified nicotine (NICORETTE) 2 Place 1 Lozenge in 60 Lozenge 2 019 Active mg lozengeIndications: mouth, between Tobacco dependence cheek & gum every hour while awake as needed for Nicotine Craving. methadone CONCENTRATE Dose per pt report 0 9 Active (DOLOPHINE) 10 mg/mL 80 mg daily solutionIndications: Other chronic pain Active Problems Problem Noted Date Severe benzodiazepine use disorder 01/31/2019 Overview: see hospitalization at [facility] 08/31/19 int ubation for benzodiazepine withdrawl Tapered and done with taper in Oct she chose to return to a provider that g ave her ativan 12/2018 I would not recommend any controlled sub stances Methadone use 01/31/2019 Overview: [facility] in [place] Other chronic pain 10/30/2018 Chronic post-traumatic stress disorder (PTSD) 09/01/20 18 Sedative, 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 Currently abusing benzodiazepines. Mild intermittent asthma 01/18/2018 Rheumatoid arthritis 01/18/2018 Overview: may have been diagnosed 2014 but RF afte r that in 2016 was negative so [facility] in [place] thought is was not rheumatoid arthritis according to note in 2016 Anxiety 09/13/2016 Arthritis 09/13/2016 Dyspepsia 09/13/2016 Migraine 09/13/2016 Severe episode of recurrent major depressive disorder, without psychotic 09/13/2016 features PTSD (post-traumatic stress disorder) 09/13/2016 Generalized anxiety disorder 09/13/2016 OCD (obsessive compulsive disorder) 09/13/2016 History of ADHD 09/13/2016 Panic disorder 09/13/2016 Agoraphobia 09/13/2016 Tobacco use disorder 09/13/2016 Immunizations Name Administration Dates Next Due Hepatitis A (Adult) 01/02/2010, 12/31/2008 Hepatitis B (Peds) 04/29/1997, 11/26/1996, 10/29/1996 Human Papilloma Virus Vaccine 12/31/2008, 09/05/2007, 2006 Influenza, IIV3 (Age >=3 years) 05/24/2018 Influenza, IIV4 (=>6mos) MDV 07/20/2017 Family History Medical History Relation Name Comments Glaucoma Father Diabetes type II Mother Relation Name Status Comments Father Alive Mother Alive Social History Tobacco Use Types Packs/Day Years Used Date Current Every Day Smoker Cigarettes 1.5 Smokeless Tobacco: Never Used Tobacco Cessation: Ready to Quit: Yes; C ounseling Given: Yes Comments: would like to discuss Alcohol Use Standard Drinks/Week Comments No 0 (1 standard drink = 0.6 oz pure alcoho l) Sex Assigned at Date Recorded Not on file Obstetrics History Para Term AB IAB SAB Ectopic Multiple Living Live Births 0 0 0 0 0 0 0 0 0 0 0 Last Filed Vital Signs Vital Sign Reading Time Taken Comments Blood Pressure 113/76 06/20/2019 4:02 PM CDT Pulse 63 06/20/2019 4:02 PM CDT Temperature 36.6 ??C (97.8 ??F) 06/20/2019 4:02 PM CDT Respiratory Rate 16 06/20/2019 4:02 PM CDT Oxygen Saturation 100% 06/20/2019 4:02 PM CDT Inhaled Oxygen Concentration - - Weight 78.9 kg (173 lb 14.4 oz) 01/24/2019 8:43 AM CDT Height 167 cm (5' 5.75) 01/24/2019 8:43 AM CDT Body Mass Index 28.28 01/24/2019 8:43 AM CDT Plan of Treatment Health Maintenance Due Date Last Done Comments COVID-19 vaccine series (#1) 1988 Tdap 1999 Hepatitis C screening for age 1006/25/2006 18-79 Tetanus booster 2008 BMI (ht and wt on same day) for 01/25/2020 01/24/2019, 04/0 10/2018, age 18+ 11/15/2018, Additional history exists Depression screening for age 12+ 01/25/2020 01/24/2019, 04/2019, 12/19/2018, Additional history exists Pap test for age 21-65 09/13/2021 09/13/2018 Influenza for age 9-49 05/20/2022 05/24/2018, 07/20/2017 Results Not on filefrom Last 3 Months Insurance Payer Benefit Plan / Subscriber ID Effective Dates Phone Addre ss Type Group [employer] [place] [id number] 2018-Present [address] [place] [address] Advance Directives Latest Code Status on File Code Status Date Activated Date Inactivated Comments Full Code 09/12/2016 6:27 PM 09/19/2016 6:48 PM Care Teams Commercial Airplane Pilot Relationship Specialty Start Date End Date Chacha Bridges MD PCP - General Internal Medicine 02/01/[address] [place] [id number]
--- OUTSIDE RECORDS SUMMARY | 2022-07-08 11:04 | XMS_ITS | Encounter Summary ---
:1990 Author Organization [facility] Address [address], [place] [address] Care Team Providers Name Role Phone Unavailable Primary Care Provider Unavailable Encounter Details Date Type Department Care Team Description 12/14/2005 Insert Cutter Only CONVERSION CONVERSION Serjio Araya RN [address] [place] [address] Social History Tobacco Use Types Packs/Day Years [...] documented as of this encounter Progress Notes Cha Araya RN - 12/14/2005 12:01 AM CST Progress Notes signed by Cha Araya RN at 12/14/05 1502 Author: Cha Araya RN Service: (none) Author Type: Registered Nurse Filed: 01/08/11 1103 Note Time: 12/14/05 0001 Status: Signed Shredded Filler Cigar Maker Machine: Cha Araya RN (Registered Nurse) Patients control has changed from the patch to depoprovara shor and they wanted to know if this was ok with her other meds. Per Dr. Burgos this is fine this information was passed on to the patients Mother Martha she made the original call. GIOUS EDUCATION DIRECTOR documented in this encounter Plan of Treatment Not on filedocumented as of this encounter Visit Diagnoses Not on filedocumented in this encounter
--- OUTSIDE RECORDS SUMMARY | 2022-07-08 11:04 | XMS_ITS | Encounter Summary ---
:1990 [facility] Address [address] [address] Care Team Providers Name Role Phone Unavailable Primary Care Provider Unavailable Encounter Details Date Type Department Care Team Description 08/24/2005 Commercial Real Estate Sales Manager Only CONVERSION CONVERSION Scooby Burgos Social History [...] this encounter Progress Notes Scooby Burgos - 08/24/2005 12:01 AM CST Progress Notes signed by Scooby Burgos MD at 08/24/05 1409 Author: Scooby Burgos MD Service: (none) Author Type: Physician Filed: 01/08/11 0845 Note Time: 08/24/052018 Status: Signed Bilingual Instructor: Scooby Burgos MD (Physician) Pt was scheduled for appointment today but did not show. Will send letter. Waive fee. LIZING SUPERVISOR documented in this encounter Plan of Treatment Not on filedocumented as of this encounter Visit Diagnoses Not on filedocumented in this encounter
--- OUTSIDE RECORDS SUMMARY | 2022-07-08 11:04 | XMS_ITS | Encounter Summary ---
:1990 [facility] Address [address] [address] Care Team Providers Name Role Phone Unavailable Primary Care Provider Unavailable Encounter Details Date Type Department Care Team Description 01/07/2005 PN Conversion Only CONV BANK Social History Tobacco Use Types Packs/Day Years [...] this encounter Progress Notes Scooby Burgos - 09/17/2005 12:01 AM CST Progress Notes signed by Scooby Burgos MD at 09/17/05 1753 Author: Scooby Burgos MD Service: (none) Author Type: Physician Filed: 01/08/11 0915 Note Time: 09/17/05 0001 Status: Signed Book Binder: Scooby Burgos MD (Physician) Agustín called indicating the abilify is causing extreme restlessness and she has not been able to sleep for a couple of days. I tried to reach her the cell phone number she left but was not able to reach her. I left a message for her to stop abilify. If sleep continues to be a problem then she could try some otc benadryl for sleep. Call next week if continues to be a problem. OR ADVISORY Rosana Dickson RN - 08/20/2005 12:01 AM CST Phone Note signed by Rosana Dickson RN at 08/24/05 1152 Author: Rosana Dickson RN Service: (none) Author Type: Registered Nurse Filed: 01/07/05 0000 Note Time: 08/20/05 0001 Status: Signed Book Binder: Rosana Dickson RN (Registered Nurse) NAME: AGUSTÍN FOSTER MR: [id number] ACCT: DICTATING CLINICIAN: ROSANA DICKSON RN,[facility] JOB: [id number] MENTAL HEALTH ONLINE PHONE CALL DATE: 08/20/05. : 1990. Chart No.: [id number]. Please review Dr. Burgos's note of 08/13 for specifics. Received a call from the patient's mother, her name is Martha. Her work number is [phone]. She calls because, according to the mother, there have really been no changes in the patient's life or what is going on, but since the addition of the Celexa 10 mg, which was just started on 08/13, she has had increased anxiety, she is isolating more at school, in fact the father had to pick her up at school today due to an anxiety attack. The school psychologist, whose name is Cathy, is concerned about school and with her missing classes. They are thinking about possibly homebound schooling. We discussed whether or not this would be the best thing for Agustín based on the fact she is already isolating. This is something to discuss with Dr. Burgos at the next appointment. Also Yuli, who is the [facility], discussed the fact that they suggested more testing. When I asked the mother what they were specifically requesting, what kind of testing, she was going to get back to the therapist, Yuli, and find out. The patient is currently at [employer]. ASSESSMENT: Update, medication adjustment. PLAN: The primary question is, due to the increased anxiety on the Celexa, they were wondering what to do. Per Dr. Scooby Burgos, recommend stopping the Celexa for now. She is on just 10 mg and has been on it just a few days since 08/13. We have scheduled a followup appointment 09/09. Mother will be bringing her and specifically requested that mother write down the specific questions they need answered because the appointments do go by rather quickly. Also, if necessary, we will work her in sooner into Dr. Burgos's schedule. Mother does have a call out and will follow up with the therapist, Yuli, regarding any testing they were thinking about from [facility]. They will call as needed. CRK:[id number] C: 08/20/05 15:17 DOCUMENT: [id number] OR ADVISORY documented in this encounter Plan of Treatment Not on filedocumented as of this encounter Visit Diagnoses Not on filedocumented in this encounter
--- OUTSIDE RECORDS SUMMARY | 2022-07-08 11:04 | XMS_ITS | Encounter Summary ---
:1990 Author Organization [facility] Address [address], [place] [address] Care Team Providers Name Role Phone Unavailable Primary Care Provider Unavailable Encounter Details Date Type Department Care Team Description 10/12/2005 Electromechanical Assembler Only CONVERSION CONVERSION Serjio Araya RN [address] [place] [address] Social History Tobacco Use Types Packs/Day Years [...] encounter Progress Notes Cha Araya RN - 10/12/2005 12:01 AM CST Progress Notes signed by Cha Araya RN at 10/12/05 1044 Author: Cha Araya RN Service: (none) Author Type: Registered Nurse Filed: 01/08/11 0944 Note Time: 10/12/05 0001 Status: Signed Fire Coordinator: Cha Araya RN (Registered Nurse) Received a call from the patients therapist she saw her today Cathy Epstein [phone]. Report is the patient stopped her Wellbutrin 1 week ago did not like how it made her feel.She continues to take the Propanolol. She is not eatting much at all and not sleeping. The depression continues the therapist reports at this time not suicidal. She is scheduled to see the therapist odin and has a call out for the Father to schedule an appointment as well. Encouraged the therapist to have the patient call and we will work her into to Dr. Burgos's schedule SHAHEEN. K TOTALER documented in this encounter Plan of Treatment Not on filedocumented as of this encounter Visit Diagnoses Not on filedocumented in this encounter
--- OUTSIDE RECORDS SUMMARY | 2022-07-08 11:04 | XMS_ITS | Encounter Summary ---
:1990 Author Organization [facility] Address [address], [place] [address] Care Team Providers Name Role Phone Unavailable Primary Care Provider Unavailable Encounter Details Date Type Department Care Team Description 11/01/2005 Chemical Process Analyst Only CONVERSION CONVERSION Serjio Araya RN [address] [place], [place] [address] Social History Tobacco Use Types Packs/Day Years [...] encounter Progress Notes Cha Araya RN - 11/01/2005 12:01 AM CST Progress Notes signed by Cha Araya RN at 11/01/05 1033 Author: Cha Araya RN Service: (none) Author Type: Registered Nurse Filed: 01/08/11 1009 Note Time: 11/01/05 0001 Status: Signed Conservation Planner: Cha Araya RN (Registered Nurse) Received a call from the patients Father Deo he gave a work # that was incorrect, a message was left at the home # [phone] to call. The question was, that the patient wanted to go to the hospital and he wanted some advice. Dr. Burgos is aware.Will wait for return call and direct them to the nearest emergency room to be assessed for hospitalization. HARDENER documented in this encounter Plan of Treatment Not on filedocumented as of this encounter Visit Diagnoses Not on filedocumented in this encounter
--- OUTSIDE RECORDS SUMMARY | 2022-07-08 11:04 | XMS_ITS | Encounter Summary ---
:1990 Author Organization [facility] Address [address], [place] [address] Care Team Providers Name Role Phone Unavailable Primary Care Provider Unavailable Encounter Details Date Type Department Care Team Description 11/01/2005 Pulp Making Plant Operator Only CONVERSION CONVERSION Serjio Araya RN [address] [place] [address] Social History Tobacco Use Types Packs/Day Years [...] signed by Cha Araya RN at 11/01/05 1120 Author: Cha Araya RN Service: (none) Author Type: Registered Nurse Filed: 01/08/11 1009 Note Time: 11/01/05 0001 Status: Signed Reservations Specialist: Cha Araya RN (Registered Nurse) PATIENTS FATHER CALLED BACK REPORTS THAT THE PATIENT IS WANTING TO GO TO THE HOSPITAL. WE DISCUSSED THE NEED TO TAKE HER TO THE NEAREST ER FOR ASSESSMENT FOR HOSPITALIZATION. SHE IS SAFE WITH HER PARENTS.IT APPEARS THE PLAN IS TO TAKE HER TO [facility] ER FOR ASSESSMENT. THEY WILL CALL NEEDED. DYE HAND documented in this encounter Plan of Treatment Not on filedocumented as of this encounter Visit Diagnoses Not on filedocumented in this encounter
--- OUTSIDE RECORDS SUMMARY | 2022-07-08 11:04 | XMS_ITS | Encounter Summary ---
:1990 Author Organization [facility] Address [address] [place] [address] Care Team Providers Name Role Phone Unavailable Primary Care Provider Unavailable Encounter Details Date Type Department Care Team Description 05/09/[address] [facility] CONV [address] [place] [id number] Social History Tobacco Use Types Packs/Day Years [...]
--- OUTSIDE RECORDS SUMMARY | 2022-07-08 11:04 | XMS_ITS | Encounter Summary ---
:1990 [facility] Address [address] [place] [address] Care Team Providers Name Role Phone Unavailable Primary Care Provider Unavailable Encounter Details Date Type Department Care Team Description 05/01/2006 PN Conversion Only CONV BANK Social History [...]
--- OUTSIDE RECORDS SUMMARY | 2022-07-08 11:04 | XMS_ITS | Encounter Summary ---
:1990 Author Organization [facility] Address [address] [place] [address] Care Team Providers Name Role Phone Unavailable Primary Care Provider Unavailable Encounter Details Date Type Department Care Team Description 04/12/2006 PN Conversion Only [facility] CONV [address] [place] [address] Social History Tobacco Use Types Packs/Day Years [...]
== END 2022-07-07 14:51 | disposition left against medical advice (07) ==
PROVIDERS: Emergency Provider Family Medicine
DX: U07.1 COVID-19 (principal); Z53.01 Procedure and treatment not carried out due to patient smoking
CPT/HCPCS: 82565; 99282; 99283

== ENCOUNTER 2023-06-25 01:58 | Outpatient (CLI) | payer BC, SELFPAY ==
[2023-06-25] VITALS (7 sets, daily range): BP systolic 119–151; BP diastolic 64–83; PULSE 86–100; RESP 16; TEMP 36.8; O2SAT 97
--- NOTE | 2023-06-25 03:50 | CRLHL7_ITS ---
For Patients: As a result of the Century Cures Act, medical imaging exams and procedure reports are released immediately into your electronic medical record. You may view this report before your referring provider. If you have questions, please contact your health care provider. INDICATION: Third trimester growth check. TECHNIQUE: Ultrasound OB pelvis transabdominal. Real-time wagner-scale imaging of the fetus was performed as well as color Doppler and spectral Doppler analysis of the umbilical artery. COMPARISON: None. FINDINGS: Intrauterine gestation: Present. cardiac activity: 144 BPM. Presentation: Cephalic. Amniotic fluid volume: Normal with the deepest pocket of 4 cm. Placenta: Posterior. Cervix: Not measured. The following biometric measurements were obtained: Biparietal diameter: 41st percentile. Head circumference: 51st percentile. Abdominal circumference: 75th percentile. Femur length: 22nd percentile. weight: 2342 grams, 54th percentile. Estimated ultrasound age: 34 weeks 1 day. Estimated due date: August 05, 2023. IMPRESSION.: Viable intrauterine . No abnormalities seen. Dictated by Arvind Krishnan MD @ 06/25/2023 6:01:40 AM (Electronically Signed)
[2023-06-25 04:05] LABS: Hematocrit 28.9 % (33.0-51.0); Hemoglobin* 9.5 gm/dL (12.0-16.0); Mean Corpuscular HGB Conc 33 gm/dL (32-36); Mean Corpuscular Hemoglobin 29 pg (26-34); Mean Corpuscular Volume 89 fL (80-100); Platelet Count* 432 K/uL (140-440); Red Blood Count 3.24 m/uL (4.00-5.20); White Blood Count* 17.43 K/uL (4.50-11.00)
[2023-06-25 04:09] LABS: Slide Review Reflex No
[2023-06-25 04:17] LABS: Amphetamine Screen Urine POSITIVE (Negative); Barbiturate Screen Urine Negative (Negative); Benzodiazepines Screen Urine POSITIVE (Negative); Cannabinoid Screen Urine Negative (Negative); Cocaine Screen Urine Negative (Negative); Methadone Screen Urine Negative (Negative); Methamphetamines Screen Urine Negative (Negative); Opiate Screen Urine Negative (Negative); Oxycodone Screen Urine Negative (Negative); Phencyclidine Screen Urine Negative (Negative); Tricyclic Antidepressant Urine Negative (Negative)
[2023-06-25 04:18] LABS: Aspartate Amino Transferase* 23 U/L (12-35); Creatinine* 0.4 mg/dL (0.5-1.5); Estimated Glomerular Filt Rate 132 ml/min
[2023-06-25 04:19] LABS: Alanine Aminotransferase* 20 U/L (4-35); Blood Urea Nitrogen* 11 mg/dL (5-24); Uric Acid* 2.7 mg/dL (2.2-8.4)
[2023-06-25 04:24] LABS: Total Protein Urine 11 mg/dL
[2023-06-25 04:25] LABS: Creatinine Urine 24.2 mg/dL
[2023-06-25 04:27] LABS: INR 0.94 (0.91-1.10); Prothrombin Time 13.1 Seconds
[2023-06-25 04:28] LABS: Fibrinogen* 498 mg/dL (200-450); Partial Thromboplastin Time* 28 Seconds (23-33)
--- NOTE | 2023-06-25 05:44 | PC.OBNST ---
NST Note NST Note Start: 06/25/23 02:09 Freq: ONCE Status: Active Protocol: Document 06/25/23 05:41 ELLYN (Rec: 06/25/23 05:44 AAP [id number]) NST Note 3 Para (# of births) 0 EDC 08/08/23 Gestational Age In Weeks & Days 33 Weeks & 5 Days High Risk Factors Advanced Maternal Age Patient Presented with Complaint(s) of Other Other Complaints Patient came in with bilateral lower back and abdominal pain and had one elevated blood pressure. Patient sent home with home blood pressure cuff per Dr. Pereira. Reactive Yes Appropriate for Gestational Age Yes ARNALDO Mota, ARNALDO Date 06/25/23 Reactive Yes Appropriate for Gestational Age Yes ARNALDO Sandoval RN Date 06/25/23 OB NST charge Yes Complete NST Note via Write Note Yes The provider's electronic signature indicates the NST is reactive/appropriate for gestational age. *Note to provider: If an addendum is required, open the patient's chart and click on the note under the Nurse/Allied Health tab.
== END 2023-06-25 05:25 | disposition home or self-care (01) ==
LOC: OB OUT 01:59 → OB 02:01
PROVIDERS: Visit Provider Obstetrics & Gynecology
DX: Z34.93 Encounter for supervision of normal pregnancy, unspecified, third trimester (principal)
CPT/HCPCS: 36415; 59025; 76815; 80306; 82565; 82570; 84156; 84450; 84460; 84520; 84550; 85027; 85384; 85610; 85730; 99213

== ENCOUNTER 2023-06-28 13:18 | Outpatient (CLI) | payer BC, SELFPAY | END 2023-06-28 13:19 | disposition home or self-care (01) | PROVIDERS: Visit Provider Registered Nurse | DX: Z34.93 Encounter for supervision of normal pregnancy, unspecified, third trimester (principal); Z3A.34 34 weeks gestation of pregnancy | CPT/HCPCS: 81240; 86592; 86787; 86803 ==

== ENCOUNTER 2023-07-12 12:12 | Outpatient (CLI) | payer BC, SELFPAY ==
--- NOTE | 2023-07-12 12:15 | CRLHL7_ITS ---
For Patients: As a result of the Century Cures Act, medical imaging exams and procedure reports are released immediately into your electronic medical record. You may view this report before your referring provider. If you have questions, please contact your health care provider. INDICATION: MGD, AMA COMPARISON: 06.25.23 TECHNIQUE: Real time wagner scale imaging of the fetus was performed. Without non-stress testing. FINDINGS: Sonographic imaging demonstrates a single living intrauterine gestation. Fetus demonstrates a regular cardiac rate of 150 beats per minute. Fetus has a vertex position. The amniotic fluid volume appears normal and there is a single deepest pocket measurement of 5.3 cm. The fetus was active and demonstrated normal breathing movements. There was normal flexion and extension of the trunk and extremities. IMPRESSION: Normal biophysical profile score of 8 out of 8. Dictated by Trey Abdul MD @ 07/12/2023 12:59:31 PM (Electronically Signed)
== END 2023-07-12 12:13 | disposition home or self-care (01) ==
LOC: US 12:12
PROVIDERS: Visit Provider Obstetrics & Gynecology
DX: O09.529 Supervision of elderly multigravida, unspecified trimester (principal)
CPT/HCPCS: 76819; 82565; 82570; 84156; 84450; 84460; 84520

== ENCOUNTER 2023-07-12 13:20 | Outpatient (CLI) | payer BC, SELFPAY ==
[2023-07-13 16:42] LABS: Strep B DNA Probe Negative (Negative)
[2023-07-15 01:11] LABS: Strep B Susceptibility Needed? No
== END 2023-07-12 13:21 | disposition home or self-care (01) ==
PROVIDERS: Visit Provider Obstetrics & Gynecology
DX: Z34.93 Encounter for supervision of normal pregnancy, unspecified, third trimester (principal); O16.3 Unspecified maternal hypertension, third trimester; Z3A.36 36 weeks gestation of pregnancy
CPT/HCPCS: 82565; 82570; 84156; 84450; 84460; 84520; 87081; 87653

== ENCOUNTER 2023-07-14 14:52 | Outpatient (CLI) | payer BC, SELFPAY ==
[2023-07-14] VITALS (10 sets, daily range): BP systolic 124–155; BP diastolic 75–87; PULSE 85–103; RESP 18; TEMP 36.6; O2SAT 96–97
--- NOTE | 2023-07-14 18:05 | PC.OBNST ---
NST Note NST Note Start: 07/14/23 15:06 Freq: ONCE Status: Active Protocol: Document 07/14/23 17:15 VANESSA (Rec: 07/14/23 18:05 VANESSA [id number]) NST Note 4 Para (# of births) 0 EDC 08/08/23 Gestational Age In Weeks & Days 36 Weeks & 3 Days High Risk Factors High Blood Pressure - Gestational,Advanced Maternal Age Patient Presented with Complaint(s) of Other Other Complaints elevated BP Reactive Yes Appropriate for Gestational Age Yes RN Flor Benson RN Date 07/14/23 ARNALOD Cordero RN Date 07/14/23 OB NST charge Yes Complete NST Note via Write Note Yes The provider's electronic signature indicates the NST is reactive/appropriate for gestational age. *Note to provider: If an addendum is required, open the patient's chart and click on the note under the Nurse/Allied Health tab.
== END 2023-07-14 17:20 | disposition home or self-care (01) ==
LOC: OB OUT 14:54 → OB 14:57
PROVIDERS: Visit Provider Obstetrics & Gynecology
DX: O16.3 Unspecified maternal hypertension, third trimester (principal); Z3A.36 36 weeks gestation of pregnancy
CPT/HCPCS: 59025; 82565; 82570; 84156; 84450; 84460; 84520; 99213

== ENCOUNTER 2023-07-15 17:53 | Outpatient (CLI) | payer BC, SELFPAY ==
[2023-07-15 18:05] VITALS: PULSE 101; O2SAT 97
[2023-07-15 18:09] VITALS: RESP 18; TEMP 37.3
[2023-07-15 18:10] VITALS: BP 115/66; PULSE 90
[2023-07-15 18:26] VITALS: BP 126/75; PULSE 94
[2023-07-15 18:40] VITALS: BP 121/71; PULSE 92
[2023-07-15 18:56] VITALS: BP 135/81; PULSE 90
[2023-07-15 18:57] LABS: Amnisure Rom* Negative
[2023-07-15] MEDS: ACETAMINOPHEN 500 MG TABLET 1000 MG PO (19:10)
[2023-07-15] MEDS: METOCLOPRAMIDE 10 MG TABLET PO (19:11)
[2023-07-15 19:26] LABS: Appearance Urine Clear (Clear); Bilirubin Urine Negative (Negative); Blood Urine Trace-intact (Negative); Color Urine Yellow (Yellow); Glucose Urine Negative (Negative); Ketones Urine Negative (Negative); Leukocyte Esterase Urine Negative (Negative); Nitrite Urine Negative (Negative); Protein Urine 1+ (Negative); Specific Gravity Urine >= 1.030 (1.000-1.030); Urobilinogen Urine 0.2 (0.2-1.0); pH Urine 5.5 (5.0-8.5)
[2023-07-15 19:30] LABS: Bacteria Urine Few; RBC Urine 0-2 (0-2); Squamous Epithelial Cell Urine Few (None-Few); WBC Urine 0-2 (0-5)
--- NOTE | 2023-07-15 21:00 | PC.OBNST ---
NST Note NST Note Start: 07/15/23 18:08 Freq: ONCE Status: Discharge Protocol: Document 07/15/23 20:58 SHASTA (Rec: 07/15/23 20:59 SHASTA [id number]) NST Note 4 Para (# of births) 0 EDC 08/08/23 Gestational Age In Weeks & Days 36 Weeks & 4 Days High Risk Factors High Blood Pressure - Gestational,Advanced Maternal Age Patient Presented with Complaint(s) of Nausea and vomiting,Other Other Complaints Elevated BP at home Reactive Yes Appropriate for Gestational Age Yes ARNALDO Almeida RN Date 07/15/23 Reactive Yes Appropriate for Gestational Age Yes ARNALDO Lackey RN Date 07/15/23 OB NST charge Yes Complete NST Note via Write Note Yes The provider's electronic signature indicates the NST is reactive/appropriate for gestational age. *Note to provider: If an addendum is required, open the patient's chart and click on the note under the Nurse/Allied Health tab.
== END 2023-07-15 20:16 | disposition home or self-care (01) ==
LOC: OB OUT 17:53 → OB 17:53
PROVIDERS: Visit Provider Obstetrics & Gynecology
DX: O16.3 Unspecified maternal hypertension, third trimester (principal); Z3A.36 36 weeks gestation of pregnancy
CPT/HCPCS: 59025; 81003; 81015; 84112; 87086; 99213; A9270

== ENCOUNTER 2023-07-18 11:29 | Inpatient (IN) | payer BC, SELFPAY ==
[2023-07-18] VITALS (29 sets, daily range): BP systolic 115–135; BP diastolic 70–82; PULSE 67–96; RESP 14–18; TEMP 36.4–36.9; O2SAT 93–100; BMI 29.0
[2023-07-18] MEDS: LACTATED RINGERS 1000 ML 1,000 ML IV (12:08)
[2023-07-18] MEDS: LACTATED RINGERS 1000 ML 1,000 ML 500 ML IV ×2 (12:57→13:44)
[2023-07-18 13:09] LABS: Hematocrit 30.9 % (33.0-51.0); Hemoglobin* 9.7 gm/dL (12.0-16.0); Mean Corpuscular HGB Conc 31 gm/dL (32-36); Mean Corpuscular Hemoglobin 27 pg (26-34); Mean Corpuscular Volume 87 fL (80-100); Platelet Count* 407 K/uL (140-440); Red Blood Count 3.54 m/uL (4.00-5.20); White Blood Count* 14.82 K/uL (4.50-11.00)
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
[2023-07-18 13:29] LABS: Alanine Aminotransferase* 16 U/L (4-35); Aspartate Amino Transferase* 39 U/L (12-35); Creatinine* 0.5 mg/dL (0.5-1.5); Est. Creatinine Clearance* 158.42; Estimated Glomerular Filt Rate 125 ml/min
[2023-07-18] MEDS: CEFAZOLIN 2 GM INJ IVP (13:40)
[2023-07-18 14:00] LABS: Slide Review Reflex Yes
[2023-07-18 14:04] LABS: Slide Review Acceptable Review (Acceptable)
[2023-07-18] MEDS: KETOROLAC 30 MG/ML inj IVP (14:14)
--- NOTE | 2023-07-18 14:34 | W.ANESCHARGE ---
Anesthesia Charges Start Date/Time Anesthesia Start Date: 07/18/23 Anesthesia Start Time: 13:30 Stop Date/Time Anesthesia Stop Date: 07/18/23 Anesthesia Stop Time: 14:33
--- NOTE | 2023-07-18 15:27 | W.PM.NB ---
Nerve Block Nerve Block Time Seen by Provider: 14:24 Date Seen: 07/18/23 Type of block requested by surgeon for post-operative analgesia: TAP Side: bilateral Time out performed: Yes Verification of patient name: Yes Verification of date of : Yes Site marking: site marked Name of person performing procedure: Ganesh Continuous monitoring Was continuous monitoring of O2 sat, B/P, private inquiry agent, recorded every 15 minutes?: Yes Procedure Checklist: sterile prep, needles and gloves Ultrasound guided. Images saved: Yes Medications given in 5ml increments after negative aspiration: Marcaine %: 0.25 mL: 30 Needle gauge: 20 and Exparel mL: 10 Patient tolerated procedure well: Yes Additional comments: Needle noted adjacent to nerve Block Charges Block Charge (with Pro Fee): TAP Bilateral Use of Ultrasound Machine for Block: Yes- US Guidance/pain block
--- NOTE | 2023-07-18 15:28 | W.ANESCHARGE ---
Anesthesia Charges Start Date/Time Anesthesia Start Date: 07/18/23 Anesthesia Start Time: 13:30 Stop Date/Time Anesthesia Stop Date: 07/18/23 Anesthesia Stop Time: 14:33
[2023-07-18] MEDS: hydrOXYzine pamoate 25 MG CAPSULE PO (17:00)
[2023-07-18] MEDS: diphenhydrAMINE 50 MG/ML inj 12.5 MG IVP ×2 (17:41→22:06)
--- NOTE | 2023-07-18 18:53 | P.OBPRC_ITS ---
Procedure Time Seen by Provider: 13:00 Date of procedure: 07/18/23 Pre-op diagnosis: Delivery at 37 weeks due to gestational hypertension. Primary delivery due to maternal request. Post-op diagnosis: same Procedure Done: Global Will [facility] bill your pro fee for this procedure?: Yes Blood Loss Measurement Type: QBL Bakri Used: No Urine Output (mL): 100 Anesthesia Type: Spinal Procedure Description: DELIVERY BY SECTION Date of Service: 07/18/2023 Delivery time: 13 50 Summary: Admitted for schedule delivery at 37 weeks 0 days, Primary Lower uterine transverse section, Pfannenstiel, Closed with sutures, QBL 910 cc, no complications, Findings: Arcuate uterus, normal bilateral ovaries and tubes 8/9, weight 3010 g. Primary Indication: Medically indicated delivery at 37 weeks due to gestational hypertension Primary delivery per maternal request/severe anxiety Procedures: Primary Lower uterine transverse section Specimens Removed: Placenta Surgeon: Radha Hodge MD Patient Care Associate Surgeon: None Anesthesia: Spinal, TAP Report: Prophylactic antibiotic, 2 g of Ancef was given before patient was taken to OR. After arrival to the operating room patient was placed in the supine position with left lateral tilt after administration of spinal anesthesia. Laparotomy A pfannenstiel incision was made through the anterior abdominal wall with #10 scalpel approximately 2 cm above the pubic symphysis. The incision was extended sharply with the #10 scalpel through the subcutaneous tissue to the level of fascia. The fascia was entered sharply with a #10 scalpel (Pfannenstiel) in the midline and extended in semi-elliptical fashion bluntly with digits. The rectus muscles were in the midline bluntly with digits. The peritoneum was then entered bluntly. The peritoneal incision was then extended superiorly and inferiorly under direct visualization with care being taken to avoid bladder and bowel. No adhesions were noted. The peritoneal incision was enlarged bluntly by lateral traction from the surgeon's and assistant professor of german's hand. Travon retractor was inserted into the abdomen. Delivery A bladder flap was not developed as bladder is low off the lower uterine segment. A low transverse hysterotomy was made then with #10 scalpel and extended laterally and cephalad with fingers in a low transverse fashion with Manu Fry technique with care being taken to avoid injury to the fetus. The amniotic cavity (membrane) was then entered with spontaneous rupture of membrane, and the amniotic fluid was noted to be clear, fetus was delivered cephalic. With delivery of the baby, no extension was noted. Placenta was delivered spontaneously with steady traction on cord and manual separation of placenta from uterine wall. Closure Uterine cavity was cleaned after placental delivery with lap sponge x 2. The hysterotomy was closed in one layer with stitches using 0 vicryl with continuous locking stitches. A 2nd imbricating layer was placed with 0 Monocryl. Hemostasis was achieved as needed with electrocautery. The ovaries/tubes/uterine surface were evaluated. They were found to be normal. Travon retractor removed and hemostasis was confirmed again. Fascia was closed with running stitches using 0 vicryl. Subcutaneous layer was irrigated. Hemostasis was checked for and found to be adequate. The subcutaneous layer was not placed as her subcutaneous layer was less than 2 cm. The skin was closed with 4-0 vicryl subcuticular sutures. The incision was cleaned and Exofin and Mepilex dressing was applied. Intraoperative Complications: None QBL: 910 cc Uterotonics: 10 u of pitocin bolus per protocol Disposition: The patient tolerated the procedure well. She was recovered in Obstetric PACU for close monitoring in stable condition, with a contracted uterus and normal transvaginal bleeding. The infant was sent to mother?s bedside/PACU. The placenta was sent to pathology. Debrief with OR team performed at the conclusion of the procedure. Pathology: specimen obtained, sent to pathology (Placenta sent to pathology due to gestational hypertension and polypharmacy) Surgery Debrief Performed: Yes Condition: stable Disposition: PACU [place] total score - 1 minute: 8 total score - 5 minute: 9
[2023-07-18] MEDS: lamoTRIgine 100 MG TABLET 200 MG PO (22:30)
[2023-07-18] MEDS: ALPRAZolam 1 MG TABLET 0.5 MG PO (23:30)
[2023-07-19] VITALS (19 sets, daily range): BP systolic 111–144; BP diastolic 62–87; PULSE 70–90; RESP 16–18; TEMP 36.4–37.1; O2SAT 96–98
[2023-07-19] MEDS: KETOROLAC 30 MG/ML inj IVP ×5 (00:07→23:43)
[2023-07-19] MEDS: SODIUM CHLORIDE 0.9 % (FLUSH) 10 ML SYRINGE IVF ×3 (00:07→17:23)
[2023-07-19 07:26] LABS: Hemoglobin* 9.4 gm/dL (12.0-16.0)
--- NOTE | 2023-07-19 07:35 | P.OBPN_ITS ---
OB - PN:Subj Subjective Date Seen: 07/19/23 Patient comments OB post-: no complaints and pain well controlled [place] infant status: bottle feeding status: exclusively bottle feeding Narrative: Jolynn is a 33 y.o. who was admitted to [facility] for a section.? She had an uncomplicated primary .? ? The patient feels well.? The pain is well controlled with current medications.? She has no new complaints.? She is bottle feeding and reports things are going well.? the patient has done well.? Vitals have been stable.? She has remained afebrile.? Has a good appetite, is tolerating a general diet.? She is voiding without difficulty.? She is passing gas and has not had a bowel movement.? She is ambulating and denies any dizziness.? Has Small amount of rubra lochia.? OB - PN: Obj Exam Physical Exam: Vital signs: Temp Pulse Resp BP Pulse Ox O2 Del Method 98.6 F 76 18 111/64 96 Room Air 07/19/23 04:59 07/19/23 04:59 07/19/23 05:29 07/19/23 04:59 07/19/23 04:59 07/19/23 04:59 Narrative: GENERAL APPEARANCE:? normal affect, alert, no distress MOOD:? appropriate CHEST:? clear to auscultation HEART:? regular rate and rhythm ABDOMEN:? soft, non-tender the uterine fundus is 1 cm below Umbilicus, Midline and is appropriate for the stage of recovery. EXTREMITIES:? normal and no edema Incision: dressing remains intact with small amount of old drainage, marked. Urinary Catheter Management: chung: Cath placed during this visit: yes Urethral indwelling: No Reason for continuing: surgical procedure Insertion date: 07/18/23 Insertion time: 14:00 OB - PN: Obj Data Labs Labs: Laboratory Results - last 24 hr 07/18/23 12:03 WBC 14.82 H RBC 3.54 L Hgb 9.7 L Hct 30.9 L MCV 87 MCH 27 MCHC 31 L Plt Count 407 Diff Slide Review Acceptable Review Creatinine 0.5 Estimated Creat Clear 158.42 Estimated GFR 125 AST 39 H ALT 16 Blood Type A Positive Antibody Screen NEGATIVE OB - PN: A/P Delivery Assessment and Plan (1) care and examination immediately after delivery: Status: Acute (2) History of herpes genitalis: Status: Acute (3) Gestational hypertension: Status: Acute (4) Fibromyalgia: Status: Acute (5) Chronic fatigue: Status: Acute (6) Narcolepsy: Status: Acute (7) Tobacco use: Status: Acute (8) Agoraphobia: Status: Acute (9) Seizure disorder: Problem details: On lamotrigine. Last seizure October 2021. Advised 1 mg folic acid. Status: Acute (10) Elevated glucose: Status: Acute (11) Family history of blood clots: Problem details: mom and grandmother with factor 2 prothrombin mutations and blood clots. Status: Acute (12) PTSD (post-traumatic stress disorder): Status: Chronic (13) History of substance abuse: Problem details: IV Heroin, benzodiazepines, EtOH. Status: Acute (14) ADHD (attention deficit hyperactivity disorder): Status: Chronic (15) GERD (gastroesophageal reflux disease): Status: Chronic (16) Anxiety and depression: Status: Chronic (17) Rheumatoid arthritis: Status: Acute (18) Anemia affecting : Status: Acute Plan day: 1 Plan: routine care Comments: Assessment/Plan?G 4 P 1 status post uncomplicated primary .? ?? 1.? Continue route PP cares?? 2.? Anticipate discharge home tomorrow or the following day per pt preference? 3.? Anemia in .? Iron supplement ordered. 4. Gestational HTN. Monitor BP's per routine.
[2023-07-19] MEDS: FERROUS SULFATE 325 MG TABLET PO (09:23)
[2023-07-19] MEDS: DOCUSATE SODIUM 100 MG CAPSULE PO (09:23)
[2023-07-19] MEDS: ENOXAPARIN 40 MG/0.4 ML INJ SUBCUT (09:23)
[2023-07-19] MEDS: lamoTRIgine 100 MG TABLET 200 MG PO (09:25)
[2023-07-19] MEDS: ACETAMINOPHEN 500 MG TABLET 1000 MG PO ×2 (14:05→19:44)
[2023-07-19] MEDS: LABETALOL HCL 100 MG TABLET PO (17:45)
[2023-07-19 17:56] LABS: Hematocrit 26.4 % (33.0-51.0); Hemoglobin* 8.4 gm/dL (12.0-16.0); Mean Corpuscular HGB Conc 32 gm/dL (32-36); Mean Corpuscular Hemoglobin 28 pg (26-34); Mean Corpuscular Volume 87 fL (80-100); Platelet Count* 408 K/uL (140-440); Red Blood Count 3.03 m/uL (4.00-5.20); White Blood Count* 15.83 K/uL (4.50-11.00)
[2023-07-19 17:59] LABS: Slide Review Reflex No
[2023-07-19 18:50] LABS: Creatinine* 0.8 mg/dL (0.5-1.5); Est. Creatinine Clearance* 99.01; Estimated Glomerular Filt Rate 98 ml/min
[2023-07-19 18:51] LABS: Blood Urea Nitrogen* 16 mg/dL (5-24)
[2023-07-19 20:05] LABS: Alanine Aminotransferase* 17 U/L (4-35); Aspartate Amino Transferase* 35 U/L (12-35)
[2023-07-19] MEDS: ALPRAZolam 1 MG TABLET 0.5 MG PO (23:49)
[2023-07-20] MEDS: ACETAMINOPHEN 500 MG TABLET 1000 MG PO (06:04)
[2023-07-20] MEDS: ENOXAPARIN 40 MG/0.4 ML INJ SUBCUT (06:05)
[2023-07-20 06:10] VITALS: BP 129/85; PULSE 69; RESP 16; TEMP 36.4; O2SAT 97
[2023-07-20 09:30] VITALS: BP 139/85; PULSE 91; RESP 18; TEMP 36.6; O2SAT 97
--- NOTE | 2023-07-20 09:37 | P.DS_ITS ---
DS: Providers Provider Date Seen: 07/20/23 Date of admission: 07/18/23 11:29 Primary care physician: Not a Local Provider Admitting Clinician: Radha Hodge MD Attending Physician on discharge: Radha Hodge MD Date of Discharge: 07/20/23 DS: Diagnosis Discharge Diagnosis (1) care following delivery: Status: Acute (2) Anemia affecting : Status: Acute (3) Tobacco use: Status: Acute (4) Seizure disorder: Status: Acute Problem details: On lamotrigine. Last seizure October 2021. Advised 1 mg folic acid. (5) Family history of blood clots: Status: Acute Problem details: mom and grandmother with factor 2 prothrombin mutations and blood clots. (6) PTSD (post-traumatic stress disorder): Status: Chronic (7) ADHD (attention deficit hyperactivity disorder): Status: Chronic (8) Anxiety and depression: Status: Chronic (9) Fibromyalgia: Status: Acute (10) Rheumatoid arthritis: Status: Acute (11) Chronic fatigue: Status: Acute (12) Narcolepsy: Status: Acute (13) Agoraphobia: Status: Acute (14) Gestational hypertension: Status: Acute Exam Narrative: Exam Narrative: GENERAL APPEARANCE:? normal affect, alert, no distress? MOOD:? appropriate? CHEST:? clear to auscultation and percussion? HEART:? regular rate and rhythm? ABDOMEN:? soft, non-tender the uterine fundus is 2 cm Below Umbilicus, Midline and is appropriate for the stage of recovery. Incision well approximated without edema, redness, warmth, or drainage. Glue closure intact.? EXTREMITIES:? normal and no edema? Patient has no complaints? No active bleeding?? Doing well? She is requesting discharge home.? Const: Vital Signs, click to edit/add: Vital Signs - 24 hr 07/19/23 10:10 07/19/23 11:10 07/19/23 12:03 Temperature 98.8 F Pulse Rate [Blood Pressure Cuff] 71 Respiratory Rate 16 16 18 Blood Pressure [Ri ght Arm] 144/84 H Pulse Oximetry 96 Oxygen Delivery Me thod Room Air 07/19/23 12:10 07/19/23 13:10 07/19/23 15:42 Temperature 98.4 F Pulse Rate [Blood Pressure Cuff] 90 Respiratory Rate 18 18 18 Blood Pressure [Ri ght Arm] 140/84 H Pulse Oximetry 96 Oxygen Delivery Me thod Room Air 07/19/23 21:25 07/19/23 23:50 07/20/23 06:10 Temperature 97.6 F 98.1 F 97.6 F Pulse Rate [Blood Pressure Cuff] 80 79 69 Respiratory Rate 16 18 16 Blood Pressure [Ri ght Arm] 135/87 138/77 129/85 Pulse Oximetry 97 96 97 Oxygen Delivery Me thod Room Air Room Air Room Air Documenting provider has reviewed patient's vital signs: yes OB - DS: Summary Hospital Course Hospital Course: The patient is a 33 year old G 4 P 1 at 37.0 weeks gestation that was admitted to the [facility] on 07/18/23 for elective primary section. She had an uncomplicated delivery. She delivered a viable female . She is bottle feeding. the patient has done well. She is ambulating without difficulty and pain is well controlled. She is passing gas but has not had a bowel movement. She is planning to resume NuvaRing for PP control. She is requesting to start medication for depression. She has previously been on Wellbutrin and that has worked well for her. Her dog recently so she is very worried that will negatively impact her . She is also planning in having a 1 week appointment for an incision check and to check on her mood. She is anemic so will be continued on PO iron supplement EOD. Peripartum Data Infant delivery method: Primary C/S; Non-Labored Procedures: Procedures Operation Date: 07/18/23 13:15 Actual Procedure Side Surgeon p Primary Section Radha Hodge MD complications: none Infant Gender: Female Infant Discharge Plan: Home Status at Discharge Functional status at discharge: independent ambulation Overall status at discharge: patient is progressing back to baseline Time Spent with Patient Time attestation: Total time spent providing and/or coordinating discharge services: Discharge Plan Discharge Disposition: Home, Self-Care Date of Admission: 07/18/23 11:29 Attending Provider on Discharge: Adelia Warner Primary Care Provider: Provider,Not a Local Condition: Stable Anticipated Discharge Date/Time: 07/20/23 13:00 Discharge Medications: New docusate sodium 100 mg Capsule 100 mg PO DAILY Qty: 100 0RF Rx Instructions: Take 1-2 tablets daily as needed for constipation. ferrous sulfate 325 mg (65 mg iron) Tablet 325 mg PO Q OTHER DAY Qty: 90 0RF Rx Instructions: Take every other day or on Mondays, Wednesdays, and Fridays. ibuprofen 600 mg Tablet 600 mg PO Q6H PRN (Reason: Pain) Qty: 90 0RF bupropion HCl [Wellbutrin XL] 150 mg tablet extended release 24 hr 150 mg PO QAM Qty: 90 3RF oxycodone 5 mg Tablet 5 - 10 mg PO Q4H PRN (Reason: Pain) Qty: 7 0RF Continued DHA 200 mg capsule 200 mg PO DAILY acetaminophen [Tylenol Extra Strength] 500 mg tablet 1,000 mg PO Q6H PRN lamotrigine [Lamictal] 200 mg tablet 200 mg PO QDAY alprazolam 1 mg tablet 0.5 - 1 mg PO 3XD PRN (Reason: anxiety) Discontinued acyclovir 400 mg tablet 400 mg PO TID 30 Days Qty: 90 0RF Discharge Orders: Discharge Order (Routine); Ordered 07/20/23 Ordered By: Adelia Warner Patient Education: OB /Bottle Feeding Additional Instructions: Discharge instructions were reviewed with the patient including signs and s ymptoms of infection and home going medications? ?? Activity restrictions:? Lifting Restrictions: 20 pounds for 6 weeks? No high-impact or core exercises for 6 weeks.?? No not submerge incision under water X 2 weeks?? Nothing vaginally for 6 weeks: no tampons or intercourse? Do not drive while taking narcotic pain medication(s)? Off Work or School for 8 weeks? ?? Symptoms to report to doctor:? -Bleeding that saturates more than one pad per hour? -Passing clots larger than the size of a golf ball? -Pain not relieved by prescribed medication? -Fever above 100.4 degrees Fahrenheit? -A foul vaginal odor? -Difficulty in emotions, mood and functions? -Thoughts of hurting yourself and/or ? -Painful, reddened area in your breast? -Any drainage, redness or tenderness in your IV/epidural site? -Severe headache that doesn't improve after taking medications? -Changes in vision, including temporary loss of vision, blurred vision, and/or light sensitivity? -Upper abdominal pain (usually under ribs on the right side)? -Decrease in urination or painful, frequent urinating? -Chest pain? -Shortness of breath? -Tenderness or pain with redness and/swelling in the calf(s) of your leg? Follow up visits:?? 1. 1 week visit:? incision check and mental health check in.? 2. 2-week visit: discuss feeding/care concerns, review control options and screen for anxiety/depression.? 3. 6-week visit for an annual exam.? ?? consultation services are available to all mothers and babies for the first year after delivery.? To make an appointment, please call [phone].? Activity Level: Other Activity Detail: See Above Discharge Diet: Regular Follow Up Appointments: [facility] [Provider Group] Provider,Not a Local [Primary Care Provider] - Forms: Ling[employer] Info Instructions
[2023-07-20] MEDS: lamoTRIgine 100 MG TABLET 200 MG PO (10:02)
[2023-07-20] MEDS: DOCUSATE SODIUM 100 MG CAPSULE PO (10:06)
[2023-07-20] MEDS: LABETALOL HCL 100 MG TABLET PO (10:06)
[2023-07-20] MEDS: FERROUS SULFATE 325 MG TABLET PO (10:07)
[2023-07-20] MEDS: IBUPROFEN 600 MG TABLET PO (10:08)
== END 2023-07-20 12:50 | disposition home or self-care (01) | DRG 540 ==
PROVIDERS: Obstetrics & Gynecology; Admitting Provider Obstetrics & Gynecology; Visit Provider Obstetrics & Gynecology
PROC: 10D00Z1 Extraction of Products of Conception, Low, Open Approach (ICD-10-PCS; CPT 59514; principal; 2023-07-18 13:00)
DX: O13.4 Gestational [pregnancy-induced] hypertension without significant proteinuria, complicating childbirth (principal); O99.344 Other mental disorders complicating childbirth; F41.9 Anxiety disorder, unspecified; F32.A Depression, unspecified; F40.00 Agoraphobia, unspecified; F11.21 Opioid dependence, in remission; F13.21 Sedative, hypnotic or anxiolytic dependence, in remission; F43.12 Post-traumatic stress disorder, chronic; F10.21 Alcohol dependence, in remission; F90.9 Attention-deficit hyperactivity disorder, unspecified type; Z62.810 Personal history of physical and sexual abuse in childhood; G40.909 Epilepsy, unspecified, not intractable, without status epilepticus; O99.354 Diseases of the nervous system complicating childbirth; G47.419 Narcolepsy without cataplexy; M79.7 Fibromyalgia; R53.82 Chronic fatigue, unspecified; K21.9 Gastro-esophageal reflux disease without esophagitis; M06.9 Rheumatoid arthritis, unspecified; O98.32 Other infections with a predominantly sexual mode of transmission complicating childbirth; A60.00 Herpesviral infection of urogenital system, unspecified; O99.02 Anemia complicating childbirth; D64.9 Anemia, unspecified; G89.18 Other acute postprocedural pain; Z83.2 Family history of diseases of the blood and blood-forming organs and certain disorders involving the immune mechanism; Z3A.37 37 weeks gestation of pregnancy; Z37.0 Single live birth
CPT/HCPCS: 01961; 36415; 64488; 76942; 82565; 84450; 84460; 84520; 85018; 85027; 86850; 86900; 86901; 88307; A9270; C9290; J0665; J0690; J1100; J1200; J1650; J1885; J2250; J2274; J2371; J2405; J2590; J3010; J7120

== ENCOUNTER 2024-10-29 14:02 | Outpatient (CLI) | payer BC, SELFPAY | END 2024-10-29 14:03 | disposition home or self-care (01) | LOC: US 14:03 | PROVIDERS: Visit Provider Physician Assistant | DX: O20.9 Hemorrhage in early pregnancy, unspecified (principal); Z3A.08 8 weeks gestation of pregnancy; N89.8 Other specified noninflammatory disorders of vagina | CPT/HCPCS: 76817; 83021; 86592; 86703; 86704; 86706; 86762; 86787; 86803; 86850; 86900; 86901; 87086; 87340; 87491; 87591 ==

== ENCOUNTER 2024-10-29 15:24 | Outpatient (CLI) | payer BC, SELFPAY ==
[2024-10-29 20:42] LABS: Chlamydia DNA Amplified* NOT DETECTED (No Detected); GC DNA Amplified* NOT DETECTED (No Detected)
== END 2024-10-29 15:25 | disposition home or self-care (01) ==
PROVIDERS: Visit Provider Physician Assistant
DX: Z34.91 Encounter for supervision of normal pregnancy, unspecified, first trimester (principal); N89.8 Other specified noninflammatory disorders of vagina; Z3A.08 8 weeks gestation of pregnancy
CPT/HCPCS: 83020; 83021; 85660; 86592; 86703; 86704; 86706; 86762; 86787; 86803; 86850; 86900; 86901; 87086; 87340; 87491; 87591

== ENCOUNTER 2024-11-29 15:55 | Outpatient (CLI) | payer BC, SELFPAY | END 2024-11-29 15:56 | disposition home or self-care (01) | PROVIDERS: Visit Provider Advanced Practice Midwife | DX: Z34.81 Encounter for supervision of other normal pregnancy, first trimester (principal) | CPT/HCPCS: 82565; 82570; 84156; 84450; 84460; 84520; 84550 ==

== ENCOUNTER 2025-01-09 11:26 | Outpatient (CLI) | payer BC, SELFPAY | END 2025-01-09 11:27 | disposition home or self-care (01) | LOC: US 11:26 | PROVIDERS: Visit Provider Advanced Practice Midwife | DX: O09.522 Supervision of elderly multigravida, second trimester (principal); O99.352 Diseases of the nervous system complicating pregnancy, second trimester; G40.909 Epilepsy, unspecified, not intractable, without status epilepticus; O35.03X0 Maternal care for (suspected) central nervous system malformation or damage in fetus, choroid plexus cysts, not applicable or unspecified; Z3A.18 18 weeks gestation of pregnancy | CPT/HCPCS: 76811 ==

== ENCOUNTER 2025-02-13 09:54 | Outpatient (CLI) | payer BC, SELFPAY | END 2025-02-13 09:55 | disposition home or self-care (01) | LOC: NFLDREF 09:55 | PROVIDERS: Visit Provider Obstetrics & Gynecology | DX: F19.11 Other psychoactive substance abuse, in remission (principal); M06.9 Rheumatoid arthritis, unspecified | CPT/HCPCS: 80306; 86235 ==

== ENCOUNTER 2025-03-13 12:29 | Outpatient (CLI) | payer BC, SELFPAY | END 2025-03-13 12:30 | disposition home or self-care (01) | LOC: NFLDREF 03-15 10:29 | PROVIDERS: Visit Provider Obstetrics & Gynecology | DX: Z34.82 Encounter for supervision of other normal pregnancy, second trimester (principal) | CPT/HCPCS: 86592 ==

== ENCOUNTER 2025-03-16 14:06 | Outpatient (CLI) | payer BC, SELFPAY | END 2025-03-16 14:07 | disposition home or self-care (01) | LOC: NFLDUCREF 14:07 | PROVIDERS: Visit Provider Nurse Practitioner Family | DX: O23.42 Unspecified infection of urinary tract in pregnancy, second trimester (principal); N39.0 Urinary tract infection, site not specified; R30.0 Dysuria; Z3A.27 27 weeks gestation of pregnancy | CPT/HCPCS: 87086 ==

== ENCOUNTER 2025-04-16 13:02 | Outpatient (CLI) | payer BC, SELFPAY ==
--- NOTE | 2025-04-16 13:00 | CRLHL7_ITS ---
For Patients: As a result of the Century Cures Act, medical imaging exams and procedure reports are released immediately into your electronic medical record. You may view this report before your referring provider. If you have questions, please contact your health care provider. OB ULTRASOUND FOLLOW-UP/LIMITED, 04/16/2025 CLINICAL HISTORY: Growth, Adderall use. TECHNIQUE: Real time wagner scale imaging of the fetus was performed. Transabdominal imaging performed. FINDINGS: MICHAEL by LMP: 06/09/2025. GA: 32 weeks 2 days. Gestation: Single. Cervix: Not visualized. Positioning: Vertex. Amniotic Fluid: 4.2 cm SDP. Placenta: Technique: TA. Placenta Position: Posterior. Dopplers: Heart Rate: 159 bpm. BIOMETRY: BPD: 8.4 cm, 33 weeks 5 days. 82% HC: 30.3 cm, 33 weeks 5 days. 51% AC: 28.8 cm, 32 weeks 6 days. 66% FL: 6.0 cm, 31 weeks 3 days. 16% FL/AC Ratio: 20.92% HC/AC Ratio: 1.05. EFW: 2003 grams, 4 lb 7 oz. age by this US: 33 weeks 0 days. MICHAEL by this US: 06/04/2025. Percentile by MICHAEL: 49% IMPRESSION: 1. Sonographic gestational age 33 weeks 0 days and sonographic due date 06/04/2025. Sonographic age is 5 days ahead of the clinical age. 2. Estimated weight 49th percentile. Abdominal circumference 66th percentile. 3. No evidence of choroid plexus cyst. Trey Abdul M.D. Diagnostic Radiologist [email or web address] Transcribed: 9:13 am DW/Dictated by: Trey Abdul MD @ 04/21/2025 9:00:00 PM (Electronically Signed)
== END 2025-04-16 13:03 | disposition home or self-care (01) ==
LOC: US 13:02
PROVIDERS: Visit Provider Obstetrics & Gynecology
DX: O99.323 Drug use complicating pregnancy, third trimester (principal); F15.10 Other stimulant abuse, uncomplicated; F90.9 Attention-deficit hyperactivity disorder, unspecified type; Z3A.32 32 weeks gestation of pregnancy
CPT/HCPCS: 76816

== ENCOUNTER 2025-05-13 12:50 | Outpatient (CLI) | payer BC, SELFPAY ==
[2025-05-13 13:32] LABS: Cannabinoid Screen Urine Negative (Negative); Methamphetamines Screen Urine Negative (Negative); Tricyclic Antidepressant Urine Negative (Negative)
== END 2025-05-13 12:51 | disposition home or self-care (01) ==
LOC: NPINS 12:51
PROVIDERS: Visit Provider Physician Assistant
DX: Z51.81 Encounter for therapeutic drug level monitoring (principal)
CPT/HCPCS: 80306; 82728; 87081; 87653

== ENCOUNTER 2025-05-20 20:51 | Outpatient (CLI) | payer BC, SELFPAY ==
[2025-05-20 21:35] VITALS: BP 139/83; PULSE 77
[2025-05-20 21:36] VITALS: PULSE 81; O2SAT 97
[2025-05-20 21:38] VITALS: RESP 16; TEMP 37
[2025-05-20] MEDS: LACTATED RINGERS 1000 ML 1,000 ML 999 ML IV (22:30)
[2025-05-21] MEDS: LACTATED RINGERS 1000 ML 1,000 ML 500 ML IV (00:29)
--- NOTE | 2025-05-21 02:54 | CRLHL7_ITS ---
For Patients: As a result of the Century Cures Act, medical imaging exams and procedure reports are released immediately into your electronic medical record. You may view this report before your referring provider. If you have questions, please contact your health care provider. Indication: Rule out placental abruption Technique: Limited transabdominal pelvic ultrasound with evaluation of the placenta. Grayscale and color Doppler imaging utilized. This examination does not serve as a comprehensive examination. Comparison: Ob ultrasound performed 04/16/2025 Findings: Single live intrauterine gestation noted. heart rate measures 127 bpm. Fetus is in vertex positioning. Cervix not visualized. Single deepest amniotic fluid pocket 4.8 cm. Placenta appears on the posterior/fundal wall without obvious evidence of abruption. Impression: Single live intrauterine gestation noted with parameters as above. No obvious sonographic evidence of placental abruption. Dictated by Jacinto Anne MD @ 05/21/2025 3:50:32 AM (Electronically Signed)
[2025-05-21] MEDS: TERBUTALINE 1 MG/ML INJ 0.25 MG SUBCUT (03:05)
[2025-05-21 03:35] LABS: Appearance Urine Clear (Clear)
--- NOTE | 2025-05-21 06:20 | PC.OBNST ---
NST Note NST Note Start: 05/20/25 21:12 Freq: ONCE Status: Active Protocol: Document 05/21/25 05:27 CUONGStanley (Rec: 05/21/25 06:20 ROSENDA Bahena) NST Note 5 Para (# of births) 1 EDC 06/10/25 Gestational Age In 37 Weeks & 1 Days Weeks & Days Patient Presented Contractions/cramping with Complaint(s) of Reactive Yes Appropriate for Yes Gestational Age RN Jewels Hunt RN Date 05/21/25 Reactive Yes Appropriate for Yes Gestational Age ARNALDO Cuevas RN Date 05/21/25 OB NST charge Yes Complete NST Note Yes via Write Note The provider's electronic signature indicates the NST is reactive/appropriate for gestational age. *Note to provider: If an addendum is required, open the patient's chart and click on the note under the Nurse/Allied Health tab.
== END 2025-05-21 04:25 | disposition home or self-care (01) ==
LOC: OB OUT 20:52 → OB 20:53
PROVIDERS: Visit Provider Obstetrics & Gynecology
DX: O47.1 False labor at or after 37 completed weeks of gestation (principal); Z3A.37 37 weeks gestation of pregnancy
CPT/HCPCS: 59025; 76815; 81001; 87086; G0463; A9270; J2270; J3105; J7120

== ENCOUNTER 2025-05-23 09:09 | Outpatient (CLI) | payer BC, SELFPAY ==
--- NOTE | 2025-05-23 09:15 | CRLHL7_ITS ---
For Patients: As a result of the Cures Act, medical imaging exams and procedure reports are released immediately into your electronic medical record. You may view this report before your referring provider. If you have questions, please contact your health care provider. OBSTETRICAL ULTRASOUND ??? FOLLOW-UP, 05/23/2025 INDICATION: Gestational diabetes mellitus. CLINICAL HISTORY: LMP: 09/02/2024 MICHAEL by LMP: 06/09/2025 Gestational Age: 37 weeks 4 days COMPARISON: 05/21/2025, 04/16/2025, 01/09/2025. TECHNIQUE: Real-time wagner-scale transabdominal imaging of the fetus was performed. FINDINGS: Fetus: Single Cervix: Not visualized positioning: Vertex Amniotic Fluid: 4.5 cm SDP Placenta technique: Transabdominal Placenta position: Left wall heart rate: 133 bpm BIOMETRY: BPD: 9.2 cm, 37 weeks 3 days, 68.1% HC: 33.6 cm, 38 weeks 3 days, 47.7% AC: 35.9 cm, 39 weeks 6 days, >97% FL: 6.9 cm, 35 weeks 5 days, 11.3% FL/AC Ratio: 19.4% HC/AC ratio: 0.9 EFW: 3519 grams; 7 lbs. 12 oz. age by this ultrasound: 37 weeks 6 days MICHAEL by this ultrasound: 05/28/2025 Percentile by MICHAEL: 82.3% IMPRESSION: 1. Sonographic gestational age is 37 weeks 6 days and sonographic due date is 06/07/2025. Good correlation with dates. Normal interval growth. 2. Estimated weight is 82nd percentile. Abdominal circumference is greater than 97th percentile. TREY FREITAS M.D. Diagnostic Radiologist [email or web address] Transcribed: 11:[address]/Dictated by: Trey Freitas MD @ 05/23/2025 10:55:00 AM (Electronically Signed)
== END 2025-05-23 09:10 | disposition home or self-care (01) ==
LOC: US 09:09
PROVIDERS: Visit Provider Obstetrics & Gynecology
DX: O24.419 Gestational diabetes mellitus in pregnancy, unspecified control (principal); Z3A.37 37 weeks gestation of pregnancy
CPT/HCPCS: 76816

== ENCOUNTER 2025-05-24 06:33 | Outpatient (CLI) | payer BC, SELFPAY ==
[2025-05-24 06:53] VITALS: BP 128/74; PULSE 30; PULSE 88; O2SAT 81
[2025-05-24 06:54] VITALS: PULSE 88; O2SAT 97
[2025-05-24 07:38] LABS: Appearance Urine Clear (Clear)
[2025-05-24 09:14] LABS: Trichomonas No Trichomonas Seen (None Seen)
[2025-05-24 09:19] LABS: Amnisure Rom* Negative
--- NOTE | 2025-05-24 09:38 | PC.OBNST ---
NST Note NST Note Start: 05/24/25 06:36 Freq: ONCE Status: Active Protocol: Document 05/24/25 09:36 JANA (Rec: 05/24/25 09:37 JANA Jorgektmelissa) NST Note 5 Para (# of births) 1 EDC 06/09/25 Gestational Age In 37 Weeks & 5 Days Weeks & Days High Risk Factors Diabetes - Gestational Diet Controlled Patient Presented Contractions/cramping with Complaint(s) of Reactive Yes Appropriate for Yes Gestational Age ARNALDO Stroud Date 05/24/25 Reactive Yes Appropriate for Yes Gestational Age ARNALDO Colon Date 05/24/25 OB NST charge Yes Complete NST Note Yes via Write Note The provider's electronic signature indicates the NST is reactive/appropriate for gestational age. *Note to provider: If an addendum is required, open the patient's chart and click on the note under the Nurse/Allied Health tab.
== END 2025-05-24 09:30 | disposition home or self-care (01) ==
LOC: OB OUT 06:36 → OB 06:36
PROVIDERS: Obstetrics & Gynecology; Visit Provider Obstetrics & Gynecology
DX: O24.419 Gestational diabetes mellitus in pregnancy, unspecified control (principal); O47.1 False labor at or after 37 completed weeks of gestation; Z3A.37 37 weeks gestation of pregnancy
CPT/HCPCS: 59025; 81001; 81003; 84112; 87210; G0463

== ENCOUNTER 2025-05-28 09:41 | Inpatient (IN) | payer BC, SELFPAY ==
[2025-05-28] VITALS (18 sets, daily range): BP systolic 117–146; BP diastolic 74–89; PULSE 63–98; RESP 14–18; TEMP 36.4–37.1; O2SAT 96–100
[2025-05-28] MEDS: CEFAZOLIN 2 GM INJ IVP (09:42)
[2025-05-28 09:45] LABS: Hematocrit 31.7 % (33.0-51.0); Hemoglobin* 10.2 gm/dL (12.0-16.0); Immature Granulocytes Pct Auto 2.3 %; Mean Corpuscular HGB Conc 32 gm/dL (32-36); Mean Corpuscular Hemoglobin 27 pg (26-34); Mean Corpuscular Volume 84 fL (80-100); RDW Coefficient of Variation % 16.8 % (11.5-15.5); Red Blood Count 3.77 m/uL (4.00-5.20); White Blood Count* 14.98 K/uL (4.50-11.00)
[2025-05-28 09:46] LABS: Immature Granulocytes Abs Auto 0.30 K/uL (0.00-0.30); Lymphocytes Absolute Auto 2.30 K/uL (0.90-2.90); Slide Review Reflex No
[2025-05-28] MEDS: AZITHROMYCIN 500 MG in 0.9 % SODIUM CHLORIDE 250 ml 250 ML 255 MG IVPB (10:09)
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
--- NOTE | 2025-05-28 10:48 | SUR.OPER ---
Due to emergency code white there was no consent signed prior to procedure for repeat . After baby was out and surgeon began closing uterus it was noted in the chart that patient had discussed bilateral salpingectomy in the clinic. Dr. Danielle was notified of this note in the patient's chart right away. Surgeon spoke with patient and patient's mother during procedure and patient was fine with not doing bilateral salpingectomy at this time due to the emergency situation of baby being born.
--- NOTE | 2025-05-28 10:59 | P.ANES_ITS ---
Anesthesia Charges Start Date/Time Anesthesia Start Date: 05/28/25 Anesthesia Start Time: 09:32 Stop Date/Time Anesthesia Stop Date: 05/28/25 Anesthesia Stop Time: 10:53 Summary Emergency: DIRECTOR IMMUNOLOGY Coding CPT Codes CPT Codes: ANESTH CS DELIVERY - 95669 ([id number]) QK - BASKET PERSON 2-4 CNCRNT ANES PROC, QX - DIRECTOR IMMUNOLOGY SVC W/ MD MED DIRECTION, P2 - PATIENT W/MILD SYST DISEASE Additional Codes: Summary - Emergency: DIRECTOR IMMUNOLOGY ([id number])
--- NOTE | 2025-05-28 10:59 | W.ANESCHARGE ---
Anesthesia Charges Start Date/Time Anesthesia Start Date: 05/28/25 Anesthesia Start Time: 09:32 Stop Date/Time Anesthesia Stop Date: 05/28/25 Anesthesia Stop Time: 10:53 Summary Emergency: CONTINUOUS IMPROVEMENT SPECIALIST Coding CPT Codes CPT Codes: ANESTH CS DELIVERY - 22309 ([id number]) QK - CARPENTER AND JOINER 2-4 CNCRNT ANES PROC, QX - CONTINUOUS IMPROVEMENT SPECIALIST SVC W/ MD MED DIRECTION, P2 - PATIENT W/MILD SYST DISEASE Additional Codes: Summary - Emergency: CONTINUOUS IMPROVEMENT SPECIALIST ([id number])
--- NOTE | 2025-05-28 11:04 | W.ANESCHARGE ---
Anesthesia Charges Start Date/Time Anesthesia Start Date: 05/28/25 Anesthesia Start Time: 09:32 Stop Date/Time Anesthesia Stop Date: 05/28/25 Anesthesia Stop Time: 10:53 Summary Emergency: RAJ Coding CPT Codes CPT Codes: ANESTH CS DELIVERY - 52602 ([id number]) QK - STRATEGIC INTELLIGENCE OFFICER 2-4 CNCRNT ANES PROC, QX - SHIELD OPERATOR SVC W/ MD MED DIRECTION, P3 - PATIENT W/SEVERE SYS DISEASE Additional Codes: Summary - Emergency: RAJ ([id number])
--- NOTE | 2025-05-28 11:04 | P.ANES_ITS ---
Anesthesia Charges Start Date/Time Anesthesia Start Date: 05/28/25 Anesthesia Start Time: 09:32 Stop Date/Time Anesthesia Stop Date: 05/28/25 Anesthesia Stop Time: 10:53 Summary Emergency: RAJ Coding CPT Codes CPT Codes: ANESTH CS DELIVERY - 18886 ([id number]) QK - BOWLING ALLEY OPERATOR 2-4 CNCRNT ANES PROC, QX - COMMUNITY THEATER ACTOR SVC W/ MD MED DIRECTION, P3 - PATIENT W/SEVERE SYS DISEASE Additional Codes: Summary - Emergency: RAJ ([id number])
--- NOTE | 2025-05-28 11:04 | P.OBPRC_ITS ---
Procedure Date of procedure: 05/28/25 Pre-op diagnosis: 1. Sinusoidal heart rate pattern concerning for distress. 2. Emergent repeat low transverse section. Post-op diagnosis: same Procedure Done: Global Will [facility] bill your pro fee for this procedure?: Yes Blood Loss Measurement Type: QBL (455 mL) Bakri Used: No IV fluids (mL): 1,000 Urine Output (mL): 100 Surgeon: Zully Danielle MD Anesthesia Type: Spinal and TAP Block Findings: Moderate adhesions from prior section. Live-born female , cephalic presentation, direct occiput posterior position, light meconium staining of the amniotic fluid, Apgars 9 and 9 at 1 and 5 minutes respectively. Normal-appearing uterus, tubes, and ovaries bilaterally. Procedure Name: Emergent repeat low transverse section. Procedure Description: After obtaining informed consent, the patient was taken to the operating room with IV running. Spinal anesthesia was quickly obtained and found to be adequate. She was prepared and draped in the normal sterile fashion in the dorsal supine position with a leftward tilt. A Pfannenstiel skin incision was made with a scalpel along the line of the patient's previous Pfannenstiel scar. This incision was carried down to the underlying layer of fascia with the Bovie. The fascia was incised in the midline and the incision extended laterally. The superior and inferior aspects of the fascial incision were grasped with Rachana clamps, elevated and the underlying rectus muscles dissected off sharply and with electrocautery. The rectus muscles were then in the midline. The adhesions between the bladder and lower uterine segment were taken down sharply with Metzenbaum scissors. The Travon O retractor was then placed into the incision. The lower uterine segment was then incised in a transverse fashion with the scalpel. Upon entry into the uterus, meconium-stained amniotic fluid was noted. The uterine incision was extended laterally with blunt finger fractionation. The infant's head was rotated, the neck flexed, and the head delivered atraumatically, followed by the remainder of the 's body. The nose and mouth were suctioned with the bulb suction. The cord was doubly clamped and cut, and the infant was handed off the field Syeda Richards NP for evaluation. A section of cord was also doubly clamped in order to obtain cord gases. The placenta was delivered manually. The uterus was cleared of all clots and debris. The uterine incision was reapproximated in a running locking fashion with a 0 chromic suture. A 2nd layer of the same suture was used to imbricate in horizontal fashion. The gutters were irrigated and suctioned. All instruments and retractors were r emoved. The anterior peritoneum was reapproximated in a running fashion with a 3-0 Vicryl suture. The subfascial tissues were carefully inspected and hemostasis assured. The fascia was reapproximated in a running fashion with a looped 0 Maxon suture. The subcutaneous tissues were copiously irrigated. Hemostasis was assured. The skin was closed in a subcuticular fashion with 4-0 Vicryl. Surgical glue and dressing were applied. A TAP block was then performed by Anesthesia. The patient tolerated the procedure well. Sponge, lap, needle, and instrument counts were reported as correct x2. The patient was taken to the recovery room, awake, and in stable condition. She did receive two grams of IV Ancef preoperatively and 500 mg azithromycin at the conclusion of the procedure. Cord gas: 7.35, BE 0. Complications: None. Pathology: specimen obtained, sent to pathology (Placenta.) Surgery Debrief Performed: Yes Surgery Debrief Comment: Cord gases were obtained by a Center RN. Placenta observed to be in the specimen container. Condition: stable Disposition: floor
--- NOTE | 2025-05-28 11:05 | P.NB_ITS ---
Nerve Block Nerve Block Time Seen by Provider: 10:45 Date Seen: 05/28/25 Type of block requested by surgeon for post-operative analgesia: TAP Side: bilateral Time out performed: Yes Verification of patient name: Yes Verification of date of : Yes Site marking: site marked Name of person performing procedure: Ganesh Continuous monitoring Was continuous monitoring of O2 sat, B/P, traffic monitor specialist, recorded every 15 minutes?: Yes Procedure Checklist: sterile prep, needles and gloves Ultrasound guided. Images saved: Yes Medications given in 5ml increments after negative aspiration: Marcaine %: 0.25 mL: 30 Needle gauge: 20 and Exparel mL: 10 Patient tolerated procedure well: Yes Additional comments: Needle noted between internal oblique and transversus abdominus. Local spread visualized Block Charges Block Charge (with Pro Fee): TAP Bilateral Use of Ultrasound Machine for Block: Yes- US Guidance/pain block
[2025-05-29] VITALS (8 sets, daily range): BP systolic 121–149; BP diastolic 73–88; PULSE 67–90; RESP 16–22; TEMP 36.6–37; O2SAT 96–98
[2025-05-29] MEDS: ACETAMINOPHEN 500 MG TABLET 1000 MG PO (01:49)
[2025-05-29 02:12] LABS: Hematocrit 29.4 % (33.0-51.0); Hemoglobin* 9.5 gm/dL (12.0-16.0); Mean Corpuscular HGB Conc 32 gm/dL (32-36); Mean Corpuscular Hemoglobin 28 pg (26-34); Mean Corpuscular Volume 86 fL (80-100); Red Blood Count 3.43 m/uL (4.00-5.20); White Blood Count* 20.51 K/uL (4.50-11.00)
[2025-05-29 02:16] LABS: Slide Review Reflex No
[2025-05-29 02:28] LABS: Alanine Aminotransferase* 37 U/L (4-35); Aspartate Amino Transferase* 47 U/L (12-35); Blood Urea Nitrogen* 16 mg/dL (5-24); Creatinine* 0.6 mg/dL (0.5-1.5); Estimated Glomerular Filt Rate 119 ml/min
[2025-05-29 06:14] LABS: Hematocrit 29.8 % (33.0-51.0); Hemoglobin* 9.6 gm/dL (12.0-16.0); Mean Corpuscular HGB Conc 32 gm/dL (32-36); Mean Corpuscular Hemoglobin 28 pg (26-34); Mean Corpuscular Volume 85 fL (80-100); Red Blood Count 3.49 m/uL (4.00-5.20); White Blood Count* 18.66 K/uL (4.50-11.00)
[2025-05-29 06:21] LABS: Slide Review Reflex No
[2025-05-29 06:28] LABS: Alanine Aminotransferase* 37 U/L (4-35); Aspartate Amino Transferase* 43 U/L (12-35); Blood Urea Nitrogen* 13 mg/dL (5-24); Creatinine* 0.6 mg/dL (0.5-1.5); Estimated Glomerular Filt Rate 119 ml/min; Glucose* 91 mg/dL (60-115)
--- NOTE | 2025-05-29 08:49 | PM.OBPNVD1 ---
OB - PN:Subj Subjective Time Seen by Provider: 08:40 Date Seen: 05/29/25 Patient comments OB post-: pain well controlled, tolerating diet and flatus present status: bottle Narrative: In bed with nurse at bedside. Baby sleeping in bassinet and partner sleeping under blankets in chair. Bottle feeding formula for baby. Pain is well controlled. Patient able to ambulate and is voiding without problem. Has passed gas no bowel movement yet. She is very nervous about bowel movement and says she had a rectal prolapse 1 month ago also says she has hemorrhoids. No notes about this found. Mid section is still pretty numb so this is not currently causing her any trouble and declined assessment at this time. She does think all parts are internal as they should be now. Recommended stool softener which she will use. Patient also requested hemorrhoid cream which we can order if they become symptomatic. She had gestational diabetes with this and is agreeable to do the 2 hr GTT tomorrow AM while inpatient. Hgb still low at 9.6 today. She did get an iron transfusion 05/23. Plan to start oral iron supplement 1 week after IV iron on 05/30. Continue to monitor blood pressure. Developed gestational hypertension and started on Nifedipine. Continue and will adjust as needed. Verifying all home meds with patient's [facility] and will order for here. SOCO [facility] Lamotrigine was listed in med list as 200mg daily but per her report and her [facility] she is currently taking 150mg BID. Adderall ER was listed as 30mg daily but she states she takes 60mg daily. Confirmed this as well with her [facility]. Will order these medications as she has stated and verified by the pharmacy [facility]. Noted in her records that a provider was going to request records from her psychologist who prescribes these medications but none was found in review of her records. RN to update medication list to reflect these changes. IAdelia APRN, CNM, was present for visit and have reviewed and agree with documentation by the Certified Nurse Midwifery Student.? OB - PN: Obj Exam Physical Exam: Vital signs: Temp Pulse Resp BP Pulse Ox O2 Del Method 97.8 F 90 22 130/84 96 Room Air 05/29/25 08:28 05/29/25 08:28 05/29/25 04:57 05/29/25 08:28 05/29/25 08:28 05/29/25 08:28 Narrative: Constitutional: no acute distress, calm and cooperative Psych: alert and oriented Cardiac: regular heart rate and rhythm, BP WNL at this time Respiratory: regular breathing effort, lung sounds clear to auscultation Extremities: +1 edema in BLE, bruising noted on anterior of right foot Fundus: firm @ U, appropriate for this stage of healing Incision: low transverse incision covered with CDI 24hr mepilex. CDI ABD pad removed at this time. OB - PN: Obj Data Labs Labs: Laboratory Results - last 24 hr 05/28/25 05/29/25 05/29/25 09:30 02:05 05:57 WBC 14.98 H 20.51 H 18.66 H RBC 3.77 L 3.43 L 3.49 L Hgb 10.2 L 9.5 L 9.6 L Hct 31.7 L 29.4 L 29.8 L MCV 84 86 85 MCH 27 28 28 MCHC 32 32 32 RDW Coeff of Tyler 16.8 H Plt Count 380 331 343 Neut % (Auto) 74.9 H Lymph % (Auto) 15.4 L Griggs % (Auto) 6.0 Eos % (Auto) 1.3 Baso % (Auto) 0.1 Neut # (Auto) 11.20 H Lymph # (Auto) 2.30 Griggs # (Auto) 0.90 Eos # (Auto) 0.20 Baso # (Auto) 0.00 Abs Immat Gran (auto) 0.30 Imm/Tot Granulo (auto) 2.3 BUN 16 13 Creatinine 0.6 0.6 Estimated GFR 119 119 Glucose 91 AST 47 H 43 H ALT 37 H 37 H Blood Type A Positive Antibody Screen NEGATIVE OB - PN: A/P Delivery Assessment and Plan (1) care following delivery: Status: Acute (2) Gestational diabetes: Status: Acute (3) Tobacco use: Status: Acute (4) Seizure disorder: Problem details: On lamotrigine. Last seizure October 2021. Advised 1 mg folic acid. Status: Acute (5) ADHD (attention deficit hyperactivity disorder): Status: Chronic (6) Anxiety and depression: Status: Chronic (7) PTSD (post-traumatic stress disorder): Status: Chronic Plan status post repeat day 1 Routine care 2 hr GTT tomorrow morning. Start NPO at midnight. Water ok until 2 hours before glucose drink. Resume home medications. Continue nicotine patch. plan to start iron supplement on discharge monitor blood pressure and continue Niphedipine Stool softener Plan day: 1 Plan: routine care
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
[2025-05-29] MEDS: DOCUSATE SODIUM 100 MG CAPSULE PO (11:14)
[2025-05-29] MEDS: CALCIUM CARBONATE 500 MG CHEW PO (20:14)
[2025-05-29] MEDS: IBUPROFEN 600 MG TABLET PO (23:14)
[2025-05-30 00:50] VITALS: BP 129/71; PULSE 86; RESP 16; TEMP 37; O2SAT 98
[2025-05-30] MEDS: ACETAMINOPHEN 500 MG TABLET 1000 MG PO ×2 (00:54→09:03)
[2025-05-30] MEDS: IBUPROFEN 600 MG TABLET PO ×2 (04:31→10:25)
[2025-05-30 04:36] VITALS: BP 122/74; PULSE 83; RESP 16; TEMP 36.8; O2SAT 98
--- NOTE | 2025-05-30 08:11 | P.DS_ITS ---
DS: Providers Provider Date Seen: 05/30/25 Date of admission: 05/28/25 09:41 Primary care physician: Not a Local Provider Admitting Clinician: Zully Danielle MD Consults: 05/28/25 21:22 Consult to Net Front End Developer [CONS] Routine Comment: Reason for Consult:: Social Service Consult Attending Physician on discharge: Bina ELLIS Date of Discharge: 05/30/25 DS: Diagnosis Discharge Diagnosis (1) care following delivery: Status: Acute (2) Gestational diabetes: Status: Acute (3) Gestational hypertension: Status: Acute Exam Narrative: Exam Narrative: GENERAL APPEARANCE:? normal affect, alert, no distress MOOD:? appropriate CHEST:? clear to auscultation HEART:? regular rate and rhythm ABDOMEN:? soft, non-tender the uterine fundus is At Umbilicus, Midline and is appropriate for the stage of recovery. EXTREMITIES:? normal and moderate edema Incision: Open to air, well approximated, No erythema, no discharge or indurat ion. Const: Vital Signs, click to edit/add: Vital Signs - 24 hr 05/29/25 08:28 05/29/25 12:27 05/29/25 17:32 Temperature 97.8 F 97.9 F 98.1 F Pulse Rate [Pulse Oximeter] 90 71 69 Respiratory Rate 18 16 Blood Pressure [Ri ght Arm] 130/84 121/74 144/82 H Pulse Oximetry 96 98 98 Oxygen Delivery Me thod Room Air Room Air Room Air 05/29/25 17:48 05/29/25 20:09 05/30/25 00:50 Temperature 98.6 F 98.6 F Pulse Rate [Pulse Oximeter] 83 86 Respiratory Rate 16 16 Blood Pressure [Ri ght Arm] 138/82 126/74 129/71 Pulse Oximetry 98 98 Oxygen Delivery Me thod Room Air Room Air 05/30/25 04:36 Temperature 98.3 F Pulse Rate [Pulse Oximeter] 83 Respiratory Rate 16 Blood Pressure [Ri ght Arm] 122/74 Pulse Oximetry 98 Oxygen Delivery Me thod Room Air OB - DS: Summary Hospital Course Hospital Course: Jolynn is a 34 y.o. G 5 P 2031 who was admitted to [facility] for unscheduled repeat due to heart tone concerns and possible early labor.? She had a section that was complicated by. emergent nature. The patient feels well.? The pain is well controlled with current medications. She doesn't remember having any pain after her first so even the mild discomfort to her is surprising. She has not yet needed oxycodone, but would like to take a few home. She has no new complaints.? She is breast feeding and reports things are going better for her when supplementing. She would like breast pump. the patient has done well.? Vitals have been stable on now Nifedipine BID.? She has remained afebrile.? Has a good appetite, is tolerating a general diet.? She is voiding without difficulty.? She is passing gas and has not had a bowel movement. She would like some cream though for some chronic hemorrhoid issues.? She is ambulating and denies any dizziness.? Has small amount of rubra lochia. She is planning abstinence for prevention until done breast feeding. She had desired a tubal ligation, but since the surgery was emergent, this was not done. She is aware. She had GDM with reported good control of her blood sugars, but this could not be verified due to inconsistent care. Mild elevations of BP prompted Nifedipine use for GHTN. She is stable on BID dosing. ?? Problems:GHTN ?? plan:? Discharge home with baby.? Follow up in 2 weeks and 6 weeks.? Instructed to continue her iron supplementation every other day Stool softeners recommended and RX'd. Hydrocortisone for hemorrhoid rx sent. Oxycodone RX sent for 5 pills. Advised to avoid use if able. DM screening completed this morning and was normal. No indication of DM is present. , may see if needed. Nursing to help arrange for a breast pump.? Hgb 9.6. Iron supplement ordered orally every other day? GHTN diagnosed by elevated BP greater than 4 hours apart? Labs WNL or stable with trending? Discharge home with BP cuff if does not already have one? Follow up in 3-5 days? Call for signs/symptoms of preeclampsia? Peripartum Data Infant delivery method: Repeat Section Episiotomy description: None Procedures: Procedures Operation Date: 05/28/25 09:45 Actual Procedure Side Surgeon p Repeat Section Not Applicable Zully Danielle MD Operation Date: 06/05/25 07:15 <No data on this case meets the specified criteria> complications: none Gender: Female Infant Discharge Plan: Home Status at Discharge Functional status at discharge: independent ambulation Overall status at discharge: patient is progressing back to baseline Time Spent with Patient Time attestation: Total time spent providing and/or coordinating discharge services: Time spent: Less than 30 minutes Discharge Plan Discharge Disposition: Home, Self-Care Date of Admission: 05/28/25 09:41 Attending Provider on Discharge: Mel Dooley Primary Care Provider: Provider,Not a Local Condition: Stable Anticipated Discharge Date/Time: 05/30/25 12:00 Discharge Medications: New nifedipine 30 mg Tablet Extended Release 30 mg PO BID Qty: 60 1RF docusate sodium 100 mg Capsule 100 mg PO DAILY Qty: 60 1RF ibuprofen 600 mg Tablet 600 mg PO Q6H PRN (Reason: Pain) Qty: 60 0RF oxycodone 5 mg Tablet 5 - 10 mg PO Q4H PRN (Reason: Pain) Qty: 5 0RF hydrocortisone 2.5 % cream with perineal applicator 1 applic MS BID-QID PRNQty: 30 1RF Continued lamotrigine [Lamictal] 200 mg tablet 200 mg PO QDAY dextroamphetamine-amphetamine [Adderall XR] 30 mg capsule,extended release 24hr 1 cap PO BID albuterol sulfate 90 mcg/actuation HFA aerosol inhaler 2 puff inhalation Q6H PRN (Reason: shortness of breath or wheezing) Qty: 8.5 1RF omeprazole 40 mg capsule,delayed release(DR/EC) 40 mg PO BID Qty: 60 1RF alprazolam 1 mg tablet 0.5 - 1 mg PO 3XD PRN (Reason: anxiety) bupropion HCl [Wellbutrin XL] 150 mg tablet extended release 24 hr 150 mg PO QAM Qty: 90 3RF Discontinued (DME) lancets Misc See Rx Instructions .MEDSUPPLY Qty: 100 3RF Rx Instructions: Test blood sugar 4 times daily. (DME) Test Strips Misc See Rx Instructions .MEDSUPPLY Qty: 100 3RF Rx Instructions: Test blood sugar 4 times daily. (DME) Blood Glucose Meter Misc See Rx Instructions .MEDSUPPLY Qty: 1 0RF Rx Instructions: As directed hydroxyzine pamoate 50 mg capsule 50 - 100 mg PO QHS Qty: 60 0RF ondansetron 4 mg tablet,disintegrating 4 mg PO Q6H PRN (Reason: nausea and vomiting) Qty: 10 0RF Discharge Orders: Discharge Order (Routine); Ordered 05/30/25 Ordered By: Mel Dooley Patient Education: OB Over the Counter Medication Information, OB /Breast Feeding Additional Instructions: Discharge instructions were reviewed with the patient including signs and symp toms of infection and home going medications Lifting Restrictions: 20 pounds for 6 weeks No not submerge incision under water X 2 weeks? Nothing vaginally for 6 weeks: no tampons or intercourse Do not drive while taking narcotic pain medication(s) Off Work or School for 6 weeks Symptoms to report to doctor: * Bleeding that saturates more than one pad per hour * Passing clots larger than the size of a golf ball * Pain not relieved by prescribed medication * Fever above 100.4 degrees Fahrenheit * A foul vaginal odor * Difficulty in emotions, mood, and functions * Thoughts of hurting yourself and/or * Painful, reddened area in your breast * Any drainage, redness, or tenderness in your IV/epidural site * Severe headache that doesn't improve after taking medications * Changes in vision, including temporary loss of vision, blurred vision, and/or light sensitivity * Upper abdominal pain (usually under ribs on the right side) * Decrease in urination or painful, frequent urinating * Chest pain * Shortness of breath * Tenderness or pain with redness and/swelling in the calf(s) of your leg [facility] for [facility] BP check Tuesday, please call to schedule Call with BP greater than or equal to 140/90 2-week visit: incision check, discuss feeding concerns, review control options and screen for anxiety/depression. 6-week visit for an annual exam. consultation services are available to all mothers and babies for the first year after delivery.? To make an appointment, please call [phone]. Activity Level: No strenuous activity Discharge Diet: Regular Follow Up App[facility]ments: [facility] [Provider Group] [facility]: [facility], [facility] Instructions
[2025-05-30 08:21] LABS: Glucose 2 Hour 67 mg/dl (70-155)
[2025-05-30] MEDS: DOCUSATE SODIUM 100 MG CAPSULE PO (08:59)
[2025-05-30 09:04] VITALS: BP 146/83; PULSE 80; RESP 16; TEMP 36.9; O2SAT 99
[2025-05-30 10:32] VITALS: BP 121/75
== END 2025-05-30 11:40 | disposition home or self-care (01) | DRG 540 ==
LOC: OB OUT 09:41 → OB 09:46 → OB OUT 10:08 → OB 10:09
PROVIDERS: Advanced Practice Midwife; Admitting Provider Obstetrics & Gynecology; Visit Provider Obstetrics & Gynecology
PROC: 10D00Z1 Extraction of Products of Conception, Low, Open Approach (ICD-10-PCS; CPT 59514; principal; 2025-05-28 09:45)
DX: O34.211 Maternal care for low transverse scar from previous cesarean delivery (principal); O75.82 Onset (spontaneous) of labor after 37 completed weeks of gestation but before 39 completed weeks gestation, with delivery by (planned) cesarean section; Z3A.39 39 weeks gestation of pregnancy; O76 Abnormality in fetal heart rate and rhythm complicating labor and delivery; O24.429 Gestational diabetes mellitus in childbirth, unspecified control; O13.4 Gestational [pregnancy-induced] hypertension without significant proteinuria, complicating childbirth; G89.18 Other acute postprocedural pain; O99.334 Smoking (tobacco) complicating childbirth; F17.210 Nicotine dependence, cigarettes, uncomplicated; O98.32 Other infections with a predominantly sexual mode of transmission complicating childbirth; A60.00 Herpesviral infection of urogenital system, unspecified; O99.344 Other mental disorders complicating childbirth; F32.A Depression, unspecified; F41.9 Anxiety disorder, unspecified; F40.00 Agoraphobia, unspecified; Z62.810 Personal history of physical and sexual abuse in childhood; G47.419 Narcolepsy without cataplexy; F11.11 Opioid abuse, in remission; F19.11 Other psychoactive substance abuse, in remission; F90.9 Attention-deficit hyperactivity disorder, unspecified type; F43.10 Post-traumatic stress disorder, unspecified; O99.354 Diseases of the nervous system complicating childbirth; G40.909 Epilepsy, unspecified, not intractable, without status epilepticus; M06.9 Rheumatoid arthritis, unspecified; Z84.81 Family history of carrier of genetic disease; Z37.0 Single live birth
CPT/HCPCS: 01961; 36415; 64488; 76942; 82565; 82947; 82950; 82962; 84450; 84460; 84520; 85018; 85025; 85027; 86592; 86850; 86900; 86901; 88307; 99140; G0463; A4314; A9270; J0456; J0665; J0666; J0690; J1100; J1885; J2371; J2405; J2590; J3010; J7050; S0106; S4990